=== PATIENT | female | born 1940 | race Caucasian/White ===

== ENCOUNTER 2024-04-30 16:20 | Observation (INO) ==
[2024-04-30] MEDS ORDERED: ROCEPHIN VIAL 1 GRAM 1 G in NS 100 ML IV 100 ML IV SCH (16:45)
[2024-04-30] MEDS: NS 1,000 ML IV 1,000 ML IV SCH (18:52)
[2024-04-30 18:57] LABS: BASOPHILS # (AUTO) 0.1 X10^3/uL (0.0-0.1); BASOPHILS % (AUTO) 0.6 % (0.2-1.0); EOSINOPHILS # (AUTO) 0.1 x10^3/uL (0.0-0.2); HEMATOCRIT 45.9 % (36.0-47.0); HEMOGLOBIN 15.5 g/dL (12.0-16.0); LYMPHOCYTES # (AUTO) 3.1 X10^3/uL (1.3-2.9); LYMPHOCYTES % (AUTO) 30.1 % (21.0-51.0); MEAN CORPUSCULAR HEMOGLOBIN 30.1 pg (27.0-34.0); MEAN CORPUSCULAR HGB CONC 33.8 g/dL (33.0-35.0); MEAN CORPUSCULAR VOLUME 89.1 fL (80.0-100.0); MEAN PLATELET VOLUME 9.8 fL (7.4-11.0); MONOCYTES # (AUTO) 0.8 x10^3/uL (0.3-0.8); NEUTROPHILS # (AUTO) 6.1 x10^3/uL (2.2-4.8); NEUTROPHILS % (AUTO) 60.3 % (42.0-75.0); PLATELET COUNT 265 X10^3/uL (150.0-450.0); RED BLOOD COUNT 5.16 X10^6/uL (3.5-5.4); RED CELL DISTRIBUTION WIDTH 16.3 % (11.6-16.5); WHITE BLOOD COUNT 10.2 X10^3/uL (3.6-10.0)
[2024-04-30 19:13] LABS: ALANINE AMINOTRANSFERASE < 6 Units/L (12-78); ALBUMIN 3.1 g/dL (3.4-5.0); ALKALINE PHOSPHATASE 85 Units/L (46-116); ASPARTATE AMINO TRANSFERASE 14 Units/L (15-37); BLOOD UREA NITROGEN 8 mg/dL (7-18); CALCIUM 8.9 mg/dL (8.5-10.1); CARBON DIOXIDE 24.5 mmol/L (21-32); CHLORIDE 99 mmol/L (98-107); COR CA(FOR HYPOALB) 9.6 mg/dL (8.5-10.1); CREATININE 1.12 mg/dL (0.55-1.02); GLUCOSE 108 mg/dL (65-99); MAGNESIUM 1.3 mg/dL (2.0-2.9); SODIUM 136 mmol/L (136-145); TOTAL PROTEIN 7.4 g/dL (6.4-8.2); eGFR NON BLACK RACES 49 (>60)
[2024-04-30] MEDS ORDERED: CONSULT PHARMACY - POTASSIUM & MAGNESIUM XX SCH (20:00)
[2024-04-30] MEDS: FLAGYL TAB 500 MG PO SCH (20:42)
[2024-04-30] MEDS: MAG-OX TAB PO SCH (20:43)
[2024-04-30] MEDS: K-DUR TAB 20 MEQ PO SCH (20:43)
[2024-04-30] MEDS: SNACK - Diabetic Appropriate PO SCH (21:35)
[2024-04-30] MEDS: ZOFRAN INJ 4 MG VIAL IVP PRN (21:51)
[2024-04-30] MEDS: K-RIDER 10 MEQ/100 ML WATER 10 MEQ/100 ML BAG IV SCH (22:31)
[2024-04-30] MEDS: NS 250 ML IV 250 ML IV ONE (22:32)
[2024-05-01] MEDS: PHENERGAN INJ 25 MG IM PRN (02:32)
[2024-05-01] MEDS: NORCO 5/325 MG TAB PO PRN (03:14)
[2024-05-01 05:26] LABS: BASOPHILS # (AUTO) 0.1 X10^3/uL (0.0-0.1); BASOPHILS % (AUTO) 0.8 % (0.2-1.0); EOSINOPHILS % (AUTO) 0.4 % (0.9-2.9); HEMOGLOBIN 13.4 g/dL (12.0-16.0); LYMPHOCYTES # (AUTO) 2.4 X10^3/uL (1.3-2.9); LYMPHOCYTES % (AUTO) 23.8 % (21.0-51.0); MEAN CORPUSCULAR HEMOGLOBIN 29.9 pg (27.0-34.0); MEAN CORPUSCULAR HGB CONC 33.6 g/dL (33.0-35.0); MEAN CORPUSCULAR VOLUME 88.9 fL (80.0-100.0); MEAN PLATELET VOLUME 9.8 fL (7.4-11.0); MONOCYTES # (AUTO) 0.8 x10^3/uL (0.3-0.8); MONOCYTES % (AUTO) 8.2 % (0.0-13.0); NEUTROPHILS # (AUTO) 6.8 x10^3/uL (2.2-4.8); NEUTROPHILS % (AUTO) 66.8 % (42.0-75.0); PLATELET COUNT 208 X10^3/uL (150.0-450.0); RED CELL DISTRIBUTION WIDTH 16.3 % (11.6-16.5); WHITE BLOOD COUNT 10.2 X10^3/uL (3.6-10.0)
[2024-05-01 05:46] LABS: ALANINE AMINOTRANSFERASE < 6 Units/L (12-78); ALBUMIN 2.5 g/dL (3.4-5.0); ALKALINE PHOSPHATASE 66 Units/L (46-116); ASPARTATE AMINO TRANSFERASE 18 Units/L (15-37); BLOOD UREA NITROGEN 8 mg/dL (7-18); CALCIUM 8.3 mg/dL (8.5-10.1); CARBON DIOXIDE 22.2 mmol/L (21-32); CHLORIDE 104 mmol/L (98-107); COR CA(FOR HYPOALB) 9.5 mg/dL (8.5-10.1); CREATININE 0.95 mg/dL (0.55-1.02); GLUCOSE 105 mg/dL (65-99); MAGNESIUM 1.2 mg/dL (2.0-2.9); POTASSIUM 3.6 mmol/L (3.5-5.1); SODIUM 138 mmol/L (136-145); eGFR NON BLACK RACES 59 (>60)
[2024-05-01] MEDS: MAGNESIUM SULFATE 1 GRAM/100 mL PREMIX 1 G/100 ML BAG IV SCH ×2 (06:26→21:05)
[2024-05-01] MEDS ORDERED: CONSULT PHARMACY - POTASSIUM & MAGNESIUM XX SCH ×2 (07:00→17:00)
--- NOTE | 2024-05-01 08:46 | RAD ---
EXAM:AP chestHISTORY:AMSCOMPARISON:03/16/2024 r.br.br.br infiltrate/pneumonia, CHF or pleural effusion.IMPRESSION:No acute chest findings.THIS IS AN ELECTRONICALLY VERIFIED FINAL [id number]/01/2024 8:42 AM - Electronically signed by Jose Young MD
[2024-05-01] MEDS: ROCEPHIN VIAL 1 GRAM 1 G in NS 100 ML IV 100 ML IV SCH (10:50)
[2024-05-01] MEDS: MAG-OX TAB PO SCH ×2 (10:53→22:42)
[2024-05-01] MEDS: K-DUR TAB 20 MEQ PO SCH ×2 (10:53→17:27)
--- NOTE | 2024-05-01 10:57 | DR.H&P ---
H&P History & Physical for Day of: H&P Date: 04/30/24 Chief Complaint Chief Complaint: CONFUSION, WEAKNESS, "UTI" PER FAMILY, DIARRHEA History of Present Illness History of Present Illness: PT IS 84 WF, DIRECT ADMIT FROM DR STONER OFFICE WITH INCREASED CONFUSION, DEHYDRATION AND WEAKNESS WITH DIARRHEA. PT WAS ON VANCOMYCIN FOR CDIFF, WHICH SHE HAS COMPLETED. PT HAS BEEN STARTED ON PO MACROBID. PT IS UNDER HOME HEALTH AND STATES PT HAS BEEN DEHYDRATED WITH POOR PO INTAKE. PT HAS PMH OF HTN, DM OA, MAITE, GERD, MDD PT ADMITTED FOR TREATMENT AND EVALUATION OF ACUTE ILLNESS. Past Medical History Past Medical History: Diabetes, Dyslipidemia and Hypertension Past Surgical History Surgical History: Other Family History Family Medical History: Diabetes Mellitus, Cancer and Hypertension Medications Home Medications: Home Medications Medication Instructions Recorded Confirmed Type carbidopa 25 mg-levodopa 100 mg 1 tab PO HS 90 days 06/16/22 03/11/24 History tablet promethazine 25 mg tablet 25 mg PO Q6H 06/16/22 03/11/24 History ropinirole 1 mg tablet 1 tab PO HS 30 days 06/16/22 03/11/24 History hydrocodone 10 mg-acetaminophen 1 tab PO TID PRN 02/02/24 03/11/24 History 325 mg tablet levothyroxine 50 mcg tablet 50 mcg PO QDAY 02/02/24 03/11/24 History metoprolol succinate 50 mg 50 mg PO QDAY 02/02/24 03/11/24 History tablet,extended release 24 hr chlorthalidone 25 mg tablet 25 mg PO QDAY 03/11/24 03/11/24 History diltiazem HCl 30 mg tablet 30 mg PO QID 03/11/24 03/11/24 History nitrofurantoin 100 mg PO BID 03/11/24 03/11/24 History monohydrate/macrocrystals 100 mg capsule (Macrobid) semaglutide 7 mg tablet 7 mg PO QDAY 03/11/24 03/11/24 History Allergies Allergies Allergy/AdvReac Type Severity Reaction Status Date / Time cefpodoxime Allergy Severe ANAPHALEXIS Verified 03/09/23 14:05 REACTION levofloxacin [Levaquin] Allergy Unknown Verified 06/16/22 09:31 nitrofurantoin Allergy Unknown Hives; Verified 06/16/22 09:31 Itching; Rash penicillin V Allergy Unknown Verified 06/16/22 09:31 codeine AdvReac Mild RASH Verified 06/16/22 09:31 penicillin G AdvReac Mild RASH Verified 06/16/22 09:31 procaine AdvReac Mild itching Verified 06/16/22 09:31 Sulfa (Sulfonamide AdvReac Mild RASH Verified 06/16/22 09:31 Antibiotics) [SULFA] Labs 05/01/24 04:40 05/01/24 04:40 Review of Systems Constitutional: Weakness Eyes: No Symptoms Reported ENT: No Symptoms Reported Respiratory: Cough and Shortness of Breath Cardiovascular: No Symptoms Reported Gastrointestinal: Nausea and Diarrhea Musculoskeletal: Back Pain and Leg Pain Skin: No Symptoms Reported Neurological: Weakness and Confusion (MILD, RELATED TO ACUTE ILLNESS) Oriented: Person Eyes: Normal Ear: Normal Nose: Normal Throat: Normal Respiratory: RLL Diminished and LLL Diminished Cardiovascular: Normal Auscultation: Bowel Sounds: Normal Palpation: Normal Tenderness: Normal Skin: Decreased Turgur Musculoskeletal: Back:Lumbar and Motor Deficit Psychiatric: Anxiety Mood Description: Calm Affect: Anxious Speech Pattern: Clear and Appropriate Assessment/Plan (1) Acute UTI: Status: Acute Plan: ADMIT, STOOL STUDIES ON ADMISSION IV HYDRATION, IV ABTX UC OBTAINED ON OUTPT BASIS BS CONTROL, PT CONSULT CXR ON ADMISSION (2) Colitis: Status: Acute (3) Atrial fibrillation: Status: Acute (4) Generalized weakness: Status: Acute (5) Hypertension: Status: None (6) Gastroesophageal reflux disease: Status: None (7) Arthritis: Status: None (8) Asthma: Status: None
[2024-05-01] MEDS: VANCOMYCIN HCL 250 MG CAP PO SCH (13:26)
[2024-05-01 15:59] LABS: ALBUMIN 2.4 g/dL (3.4-5.0); CALCIUM 8.1 mg/dL (8.5-10.1); CARBON DIOXIDE 23.6 mmol/L (21-32); COR CA(FOR HYPOALB) 9.4 mg/dL (8.5-10.1); CREATININE 1.11 mg/dL (0.55-1.02); POTASSIUM 3.5 mmol/L (3.5-5.1); TOTAL PROTEIN 5.9 g/dL (6.4-8.2)
[2024-05-01] MEDS: MAG-OX TAB ONE (17:53)
[2024-05-01] MEDS: NS + KCL 20 MEQ/L 1,000 ML IV SCH (21:05)
[2024-05-02 04:55] LABS: BASOPHILS # (AUTO) 0.1 X10^3/uL (0.0-0.1); BASOPHILS % (AUTO) 0.7 % (0.2-1.0); EOSINOPHILS % (AUTO) 0.5 % (0.9-2.9); HEMATOCRIT 39.7 % (36.0-47.0); HEMOGLOBIN 13.2 g/dL (12.0-16.0); LYMPHOCYTES # (AUTO) 2.1 X10^3/uL (1.3-2.9); LYMPHOCYTES % (AUTO) 25.5 % (21.0-51.0); MEAN CORPUSCULAR HEMOGLOBIN 29.9 pg (27.0-34.0); MEAN CORPUSCULAR HGB CONC 33.4 g/dL (33.0-35.0); MEAN CORPUSCULAR VOLUME 89.5 fL (80.0-100.0); MEAN PLATELET VOLUME 9.4 fL (7.4-11.0); MONOCYTES # (AUTO) 0.7 x10^3/uL (0.3-0.8); NEUTROPHILS # (AUTO) 5.3 x10^3/uL (2.2-4.8); NEUTROPHILS % (AUTO) 64.3 % (42.0-75.0); PLATELET COUNT 211 X10^3/uL (150.0-450.0); RED BLOOD COUNT 4.43 X10^6/uL (3.5-5.4); RED CELL DISTRIBUTION WIDTH 16.3 % (11.6-16.5); WHITE BLOOD COUNT 8.3 X10^3/uL (3.6-10.0)
[2024-05-02 05:07] LABS: ALANINE AMINOTRANSFERASE < 6 Units/L (12-78); ALBUMIN 2.4 g/dL (3.4-5.0); ALKALINE PHOSPHATASE 70 Units/L (46-116); ASPARTATE AMINO TRANSFERASE 12 Units/L (15-37); BLOOD UREA NITROGEN 7 mg/dL (7-18); CALCIUM 8.1 mg/dL (8.5-10.1); CARBON DIOXIDE 26.3 mmol/L (21-32); CHLORIDE 106 mmol/L (98-107); COR CA(FOR HYPOALB) 9.4 mg/dL (8.5-10.1); CREATININE 1.11 mg/dL (0.55-1.02); GLUCOSE 110 mg/dL (65-99); SODIUM 139 mmol/L (136-145); TOTAL PROTEIN 5.7 g/dL (6.4-8.2); eGFR NON BLACK RACES 50 (>60)
[2024-05-02] MEDS: TYLENOL 325 MG TAB PO PRN (11:55)
--- NOTE | 2024-05-02 12:44 | NOTE.SOAP ---
Soap Note Note for Day of Date of Exam: 05/02/24 Subjective Data Subjective Data: Feeling better this morning. Still feeling tired and weak. No acute overnight events per patient or staff. Objective Data Objective Data: Elderly, obese female in no acute distress. Heart regular rate and rhythm. Lungs are clear with good respiratory effort and clear speech. Belly is soft, nontender, nondistended. Bowel sounds are appropriate. Mood and affect are appropriate. Assessment Assessment: 1. ESBL E. coli and Staph aureus UTI. Continue IV Rocephin. 2. Infectious diarrhea caused by Salmonella and C. difficile colitis. Continue p.o. Vanco and Flagyl. 3. Essential hypertension. Restart losartan. Consider adding metoprolol back tomorrow.
[2024-05-03 05:18] LABS: BASOPHILS % (AUTO) 0.5 % (0.2-1.0); EOSINOPHILS # (AUTO) 0.1 x10^3/uL (0.0-0.2); EOSINOPHILS % (AUTO) 0.8 % (0.9-2.9); HEMATOCRIT 38.7 % (36.0-47.0); HEMOGLOBIN 13.1 g/dL (12.0-16.0); LYMPHOCYTES # (AUTO) 2.2 X10^3/uL (1.3-2.9); LYMPHOCYTES % (AUTO) 28.8 % (21.0-51.0); MEAN CORPUSCULAR HEMOGLOBIN 30.1 pg (27.0-34.0); MEAN CORPUSCULAR HGB CONC 33.8 g/dL (33.0-35.0); MEAN PLATELET VOLUME 9.6 fL (7.4-11.0); MONOCYTES # (AUTO) 0.6 x10^3/uL (0.3-0.8); MONOCYTES % (AUTO) 8.2 % (0.0-13.0); NEUTROPHILS # (AUTO) 4.7 x10^3/uL (2.2-4.8); NEUTROPHILS % (AUTO) 61.7 % (42.0-75.0); PLATELET COUNT 205 X10^3/uL (150.0-450.0); RED BLOOD COUNT 4.35 X10^6/uL (3.5-5.4); RED CELL DISTRIBUTION WIDTH 16.7 % (11.6-16.5); WHITE BLOOD COUNT 7.6 X10^3/uL (3.6-10.0)
[2024-05-03 05:22] LABS: ALANINE AMINOTRANSFERASE 6 Units/L (12-78); ALBUMIN 2.4 g/dL (3.4-5.0); ALKALINE PHOSPHATASE 67 Units/L (46-116); ASPARTATE AMINO TRANSFERASE 13 Units/L (15-37); BLOOD UREA NITROGEN 4 mg/dL (7-18); CALCIUM 7.9 mg/dL (8.5-10.1); CARBON DIOXIDE 21.4 mmol/L (21-32); CHLORIDE 107 mmol/L (98-107); COR CA(FOR HYPOALB) 9.2 mg/dL (8.5-10.1); CREATININE 0.85 mg/dL (0.55-1.02); GLUCOSE 96 mg/dL (65-99); POTASSIUM 3.6 mmol/L (3.5-5.1); SODIUM 140 mmol/L (136-145); TOTAL PROTEIN 5.7 g/dL (6.4-8.2); eGFR NON BLACK RACES > 60 (>60)
[2024-05-03 06:04] VITALS: BMI 33.2
[2024-05-03] MEDS ORDERED: CONSULT PHARMACY - POTASSIUM & MAGNESIUM XX SCH (07:00)
[2024-05-03] MEDS: NS 1,000 ML IV 1,000 ML with MAGNESIUM SULFATE 50% INJ VIAL 1 G IV SCH (08:03)
[2024-05-03] MEDS: K-DUR TAB 20 MEQ PO SCH (08:03)
[2024-05-03] MEDS: VSL#3 PROBIOTIC CAP 112.5 B PO SCH (13:09)
[2024-05-03] MEDS: ELIQUIS PO SCH (13:10)
[2024-05-03] MEDS: ZITHROMAX TAB 250 MG PO SCH (13:10)
[2024-05-04 06:01] LABS: BASOPHILS # (AUTO) 0.1 X10^3/uL (0.0-0.1); EOSINOPHILS # (AUTO) 0.1 x10^3/uL (0.0-0.2); EOSINOPHILS % (AUTO) 0.9 % (0.9-2.9); HEMATOCRIT 40.1 % (36.0-47.0); HEMOGLOBIN 13.5 g/dL (12.0-16.0); LYMPHOCYTES # (AUTO) 2.5 X10^3/uL (1.3-2.9); LYMPHOCYTES % (AUTO) 28.9 % (21.0-51.0); MEAN CORPUSCULAR HEMOGLOBIN 30.1 pg (27.0-34.0); MEAN CORPUSCULAR HGB CONC 33.7 g/dL (33.0-35.0); MEAN CORPUSCULAR VOLUME 89.5 fL (80.0-100.0); MEAN PLATELET VOLUME 9.5 fL (7.4-11.0); MONOCYTES # (AUTO) 0.6 x10^3/uL (0.3-0.8); MONOCYTES % (AUTO) 7.3 % (0.0-13.0); NEUTROPHILS # (AUTO) 5.3 x10^3/uL (2.2-4.8); NEUTROPHILS % (AUTO) 61.9 % (42.0-75.0); PLATELET COUNT 217 X10^3/uL (150.0-450.0); RED BLOOD COUNT 4.48 X10^6/uL (3.5-5.4); RED CELL DISTRIBUTION WIDTH 16.7 % (11.6-16.5); WHITE BLOOD COUNT 8.5 X10^3/uL (3.6-10.0)
[2024-05-04 06:21] LABS: ALANINE AMINOTRANSFERASE < 6 Units/L (12-78); ALBUMIN 2.5 g/dL (3.4-5.0); ALKALINE PHOSPHATASE 68 Units/L (46-116); ASPARTATE AMINO TRANSFERASE 15 Units/L (15-37); BLOOD UREA NITROGEN 3 mg/dL (7-18); CALCIUM 8.5 mg/dL (8.5-10.1); CARBON DIOXIDE 22.8 mmol/L (21-32); CHLORIDE 105 mmol/L (98-107); COR CA(FOR HYPOALB) 9.7 mg/dL (8.5-10.1); CREATININE 0.88 mg/dL (0.55-1.02); GLUCOSE 104 mg/dL (65-99); MAGNESIUM 1.9 mg/dL (2.0-2.9); POTASSIUM 3.7 mmol/L (3.5-5.1); SODIUM 137 mmol/L (136-145); eGFR NON BLACK RACES > 60 (>60)
[2024-05-04] MEDS ORDERED: CONSULT PHARMACY - POTASSIUM & MAGNESIUM XX SCH (07:00)
[2024-05-04] MEDS: K-DUR TAB 20 MEQ PO SCH (08:25)
[2024-05-04] MEDS: MAG-OX TAB PO SCH (08:25)
[2024-05-04] MEDS: CONSULT PHARMACY - ANTIBIOTIC XX SCH (09:38)
[2024-05-04] MEDS: DECADRON INJ IVP ONE (13:51)
--- NOTE | 2024-05-04 13:51 | PCM.PROG ---
Progress Note Progress Note for Day of Date of Exam: 05/04/24 Subjective Subjective: PT IS 84 WF, DIRECT ADMIT WITH COLITIS DUE TO STOOL + CDIFF, SALMONELLA AND CAMP. PT IS CURRENTLY ON PO ZITHROMAX AND VANCOMYCIN. PT HAS BEEN ON IV ROCEPHIN FOR UTI. PT HAS HAD EXTREME WEAKNESS, PRETTY MUCH BED BOUND AT HOME. PLAN TO CONTINUE IV HYRATION WITH PT AND ENCOURAGE ORAL HYDRATION AND NUTRITION. Past Medical Family Social History Allergies: Allergies cefpodoxime Allergy (Severe, Verified 03/09/23 14:05) ANAPHALEXIS REACTION Throat was swelling closed levofloxacin [Levaquin] Allergy (Unknown, Verified 06/16/22 09:31) Reason: Drug allergy nitrofurantoin Allergy (Unknown, Verified 06/16/22 09:31) Hives; Itching; Rash Reason: Drug allergy penicillin V Allergy (Unknown, Verified 06/16/22 09:31) Reason: Drug allergy codeine Adverse Reaction (Mild, Verified 06/16/22 09:31) RASH penicillin G Adverse Reaction (Mild, Verified 06/16/22 09:31) RASH procaine Adverse Reaction (Mild, Verified 06/16/22 09:31) itching Sulfa (Sulfonamide Antibiotics) [SULFA] Adverse Reaction (Mild, Verified 06/16/22 09:31) RASH Vital Signs and I&O's Vital Signs: Vital Signs Temperature 98.1 F Temperature 98.0 F Pulse Rate [Left] 90 Pulse Rate [Left] 83 Respiratory Rate 19 Respiratory Rate 18 Blood Pressure [Right Arm] 146/67 Blood Pressure [Right Arm] 155/70 O2 Sat by Pulse Oximetry 95 O2 Sat by Pulse Oximetry 95 Intake and Output: Intake & Output 05/02/24 05/03/24 05/04/24 05/05/24 11:59 11:59 11:59 11:59 Intake Total 3432 / 3432 3194 / 3194 2473 / 2473 Output Total 200 / 200 2 / 2 / Balance 3232 / 3232 3192 / 3192 2470 / 2470 Physical Exam Oriented: Person Eyes: Normal Ear: Normal Nose: Normal Throat: Normal Respiratory: Diminished Cardiovascular: Normal Auscultation: Bowel Sounds: Normal Tenderness: Normal Skin: Decreased Turgur Musculoskeletal: Back:Lumbar and Motor Deficit Psychiatric: Anxiety Mood Description: Calm Affect: Anxious Speech Pattern: Clear and Appropriate Laboratory and Diagnostics 12/27/24 05:38 05/04/24 05:38 Labs: 05/01/24 07:48 Stool Stool Culture - Final Salmonella Species 05/01/24 07:48 Stool - Final 04/30/24 18:27 Blood Blood Culture - Preliminary 04/30/24 18:17 Blood Blood Culture - Preliminary Laboratory WBC 8.5 X10^3/uL (3.6-10.0) 05/04/24 05:38 RBC 4.48 X10^6/uL (3.5-5.4) 05/04/24 05:38 Hgb 13.5 g/dL (12.0-16.0) 05/04/24 05:38 Hct 40.1 % (36.0-47.0) 05/04/24 05:38 MCV 89.5 fL (80.0-100.0) 05/04/24 05:38 MCH 30.1 pg (27.0-34.0) 05/04/24 05:38 MCHC 33.7 g/dL (33.0-35.0) 05/04/24 05:38 RDW 16.7 % (11.6-16.5) H 05/04/24 05:38 Plt Count 217 X10^3/uL (150.0-450.0) 05/04/24 05:38 MPV 9.5 fL (7.4-11.0) 05/04/24 05:38 Neut % (Auto) 61.9 % (42.0-75.0) 05/04/24 05:38 Lymph % (Auto) 28.9 % (21.0-51.0) 05/04/24 05:38 [place] % (Auto) 7.3 % (0.0-13.0) 05/04/24 05:38 Eos % (Auto) 0.9 % (0.9-2.9) 05/04/24 05:38 Baso % (Auto) 1.0 % (0.2-1.0) 05/04/24 05:38 Neut # (Auto) 5.3 x10^3/uL (2.2-4.8) H 05/04/24 05:38 Lymph # (Auto) 2.5 X10^3/uL (1.3-2.9) 05/04/24 05:38 [place] # (Auto) 0.6 x10^3/uL (0.3-0.8) 05/04/24 05:38 Eos # (Auto) 0.1 x10^3/uL (0.0-0.2) 05/04/24 05:38 Baso # (Auto) 0.1 X10^3/uL (0.0-0.1) 05/04/24 05:38 Absolute Nucleated RBC 0.1 /100WBC 05/04/24 05:38 Sodium 137 mmol/L (136-145) 05/04/24 05:38 Corrected Sodium TNP 05/04/24 05:38 Potassium 3.7 mmol/L (3.5-5.1) 05/04/24 05:38 Chloride 105 mmol/L (98-107) 05/04/24 05:38 Carbon Dioxide 22.8 mmol/L (21-32) 05/04/24 05:38 BUN 3 mg/dL (7-18) L 05/04/24 05:38 Creatinine 0.88 mg/dL (0.55-1.02) 05/04/24 05:38 Est GFR (MDRD) Af Amer > 60 (>60) 05/04/24 05:38 Est GFR (MDRD) Non-Af > 60 (>60) 05/04/24 05:38 Glucose 104 mg/dL (65-99) H 05/04/24 05:38 POC Glucose (mg/dL) 132 mg/dL (65-99) H 05/04/24 11:03 Lactic Acid 1.0 mmol/L (0.4-2.0) 04/30/24 18:17 Uric Acid 3.8 mg/dL (2.6-6.0) 05/04/24 09:38 Calcium 8.5 mg/dL (8.5-10.1) 05/04/24 05:38 Corrected Calcium 9.7 mg/dL (8.5-10.1) 05/04/24 05:38 Magnesium 1.9 mg/dL (2.0-2.9) L 05/04/24 05:38 Total Bilirubin 0.50 mg/dL (0.2-1.0) 05/04/24 05:38 AST 15 Units/L (15-37) 05/04/24 05:38 ALT < 6 Units/L (12-78) L 05/04/24 05:38 Alkaline Phosphatase 68 Units/L (46-116) 05/04/24 05:38 Total Protein 6.0 g/dL (6.4-8.2) L 05/04/24 05:38 Albumin 2.5 g/dL (3.4-5.0) L 05/04/24 05:38 Globulin 3.5 g/dL (2.5-4.5) 05/04/24 05:38 Albumin/Globulin Ratio 0.7 Ratio (1.1-2.1) L 05/04/24 05:38 Stl C. diff Tox B Gene Positive (NEGATIVE) A 05/01/24 07:48 Stl C. diff 027-NAP1-BI Presumptive negative (NEGATIVE) 05/01/24 07:48 C. difficile Toxin A&B Positive (NEGATIVE) A 05/01/24 07:48 Plan (1) Acute UTI: Status: Acute Plan: STOOL STUDIES ON ADMISSION IV HYDRATION, IV ABTX UC OBTAINED ON OUTPT BASIS BS CONTROL, PT CONSULT CXR ON ADMISSION (2) Salmonella enteritis: Status: Acute (3) Colitis: Status: Acute (4) Atrial fibrillation: Status: Acute (5) Generalized weakness: Status: Acute (6) Hypertension: Status: None (7) Gastroesophageal reflux disease: Status: None (8) Arthritis: Status: None (9) Asthma: Status: None
[2024-05-05 06:58] LABS: BASOPHILS % (AUTO) 0.3 % (0.2-1.0); EOSINOPHILS % (AUTO) 0.1 % (0.9-2.9); HEMATOCRIT 38.9 % (36.0-47.0); HEMOGLOBIN 13.2 g/dL (12.0-16.0); LYMPHOCYTES # (AUTO) 1.3 X10^3/uL (1.3-2.9); LYMPHOCYTES % (AUTO) 21.4 % (21.0-51.0); MEAN CORPUSCULAR HEMOGLOBIN 30.1 pg (27.0-34.0); MEAN CORPUSCULAR HGB CONC 33.8 g/dL (33.0-35.0); MEAN PLATELET VOLUME 9.9 fL (7.4-11.0); MONOCYTES # (AUTO) 0.1 x10^3/uL (0.3-0.8); MONOCYTES % (AUTO) 1.3 % (0.0-13.0); NEUTROPHILS # (AUTO) 4.6 x10^3/uL (2.2-4.8); NEUTROPHILS % (AUTO) 76.9 % (42.0-75.0); PLATELET COUNT 223 X10^3/uL (150.0-450.0); RED BLOOD COUNT 4.38 X10^6/uL (3.5-5.4); RED CELL DISTRIBUTION WIDTH 16.9 % (11.6-16.5)
[2024-05-05 07:26] LABS: ALANINE AMINOTRANSFERASE 7 Units/L (12-78); ALBUMIN 2.6 g/dL (3.4-5.0); ALKALINE PHOSPHATASE 69 Units/L (46-116); ASPARTATE AMINO TRANSFERASE 17 Units/L (15-37); BLOOD UREA NITROGEN 4 mg/dL (7-18); CALCIUM 8.5 mg/dL (8.5-10.1); CARBON DIOXIDE 21.7 mmol/L (21-32); CHLORIDE 102 mmol/L (98-107); COR CA(FOR HYPOALB) 9.6 mg/dL (8.5-10.1); COR NA(FOR HYPERGLY) 138 mmol/L (136-145); CREATININE 0.86 mg/dL (0.55-1.02); GLUCOSE 179 mg/dL (65-99); SODIUM 136 mmol/L (136-145); TOTAL PROTEIN 6.4 g/dL (6.4-8.2); eGFR NON BLACK RACES > 60 (>60)
--- NOTE | 2024-05-05 12:33 | PCM.PROG ---
Progress Note Progress Note for Day of Date of Exam: 05/05/24 Subjective Subjective: Patient seen at bedside, no acute events overnight. She is feeling better today. Denies N/V/D. She did eat breakfast. She has not been ambulating much. She is admitted for colitis with C.diff and Salmonella along with UTI. She is on PO and IV antibiotics. Labs/imaging reviewed: -WBC 6 Hgb 13.2 BUN/Cr 4/0.86 -Urine Cx reviewed -Stool studies: salmonella, C.diff Plan: Continue PO and IV antibiotics. Replace electrolytes prn. Encouraged PO intake. Ambulate prn. PT/OT as tolerated. Continue home medications. Monitor AM labs/imaging. Past Medical Family Social History Allergies: Allergies cefpodoxime Allergy (Severe, Verified 03/09/23 14:05) ANAPHALEXIS REACTION Throat was swelling closed levofloxacin [Levaquin] Allergy (Unknown, Verified 06/16/22 09:31) Reason: Drug allergy nitrofurantoin Allergy (Unknown, Verified 06/16/22 09:31) Hives; Itching; Rash Reason: Drug allergy penicillin V Allergy (Unknown, Verified 06/16/22 09:31) Reason: Drug allergy codeine Adverse Reaction (Mild, Verified 06/16/22 09:31) RASH penicillin G Adverse Reaction (Mild, Verified 06/16/22 09:31) RASH procaine Adverse Reaction (Mild, Verified 06/16/22 09:31) itching Sulfa (Sulfonamide Antibiotics) [SULFA] Adverse Reaction (Mild, Verified 06/16/22 09:31) RASH Vital Signs and I&O's Vital Signs: Vital Signs Temperature 98.2 F Pulse Rate [Right Brachial] 102 Respiratory Rate 20 Blood Pressure [Right Arm] 163/86 O2 Sat by Pulse Oximetry 94 Intake and Output: Intake & Output 05/02/24 05/03/24 05/04/24 05/05/24 23:59 23:59 23:59 23:59 Intake Total 2628 / 2628 2419 / 2419 2608 / 2608 1414 / 1414 Output Total / 06 10 / Balance 2626 / 2626 2417 / 2417 2607 / 2607 1414 / 1414 Physical Exam Oriented: Person Eyes: Normal Ear: Normal Nose: Normal Throat: Normal Respiratory: Diminished Cardiovascular: Normal Auscultation: Bowel Sounds: Normal Palpation: Normal Tenderness: Normal Skin: Decreased Turgur Musculoskeletal: Back:Lumbar and Motor Deficit Psychiatric: Normal Mood Description: Calm Affect: Normal Speech Pattern: Clear and Appropriate Laboratory and Diagnostics 05/05/24 06:10 05/05/24 06:10 Labs: 05/01/24 07:48 Stool Stool Culture - Final Salmonella Species 05/01/24 07:48 Stool - Final 04/30/24 18:27 Blood Blood Culture - Preliminary 04/30/24 18:17 Blood Blood Culture - Preliminary Laboratory WBC 6.0 X10^3/uL (3.6-10.0) 05/05/24 06:10 RBC 4.38 X10^6/uL (3.5-5.4) 05/05/24 06:10 Hgb 13.2 g/dL (12.0-16.0) 05/05/24 06:10 Hct 38.9 % (36.0-47.0) 05/05/24 06:10 MCV 89.0 fL (80.0-100.0) 05/05/24 06:10 MCH 30.1 pg (27.0-34.0) 05/05/24 06:10 MCHC 33.8 g/dL (33.0-35.0) 05/05/24 06:10 RDW 16.9 % (11.6-16.5) H 05/05/24 06:10 Plt Count 223 X10^3/uL (150.0-450.0) 05/05/24 06:10 MPV 9.9 fL (7.4-11.0) 05/05/24 06:10 Neut % (Auto) 76.9 % (42.0-75.0) H 05/05/24 06:10 Lymph % (Auto) 21.4 % (21.0-51.0) 05/05/24 06:10 [place] % (Auto) 1.3 % (0.0-13.0) 05/05/24 06:10 Eos % (Auto) 0.1 % (0.9-2.9) L 05/05/24 06:10 Baso % (Auto) 0.3 % (0.2-1.0) 05/05/24 06:10 Neut # (Auto) 4.6 x10^3/uL (2.2-4.8) 05/05/24 06:10 Lymph # (Auto) 1.3 X10^3/uL (1.3-2.9) 05/05/24 06:10 [place] # (Auto) 0.1 x10^3/uL (0.3-0.8) L 05/05/24 06:10 Eos # (Auto) 0.0 x10^3/uL (0.0-0.2) 05/05/24 06:10 Baso # (Auto) 0.0 X10^3/uL (0.0-0.1) 05/05/24 06:10 Absolute Nucleated RBC 0.2 /100WBC 05/05/24 06:10 Sodium 136 mmol/L (136-145) 05/05/24 06:10 Corrected Sodium 138 mmol/L (136-145) 05/05/24 06:10 Potassium 4.0 mmol/L (3.5-5.1) 05/05/24 06:10 Chloride 102 mmol/L (98-107) 05/05/24 06:10 Carbon Dioxide 21.7 mmol/L (21-32) 05/05/24 06:10 BUN 4 mg/dL (7-18) L 05/05/24 06:10 Creatinine 0.86 mg/dL (0.55-1.02) 05/05/24 06:10 Est GFR (MDRD) Af Amer > 60 (>60) 05/05/24 06:10 Est GFR (MDRD) Non-Af > 60 (>60) 05/05/24 06:10 Glucose 179 mg/dL (65-99) H 05/05/24 06:10 POC Glucose (mg/dL) 174 mg/dL (65-99) H 05/05/24 05:28 Lactic Acid 1.0 mmol/L (0.4-2.0) 04/30/24 18:17 Uric Acid 3.8 mg/dL (2.6-6.0) 05/04/24 09:38 Calcium 8.5 mg/dL (8.5-10.1) 05/05/24 06:10 Corrected Calcium 9.6 mg/dL (8.5-10.1) 05/05/24 06:10 Magnesium 1.9 mg/dL (2.0-2.9) L 05/04/24 05:38 Total Bilirubin 0.50 mg/dL (0.2-1.0) 05/05/24 06:10 AST 17 Units/L (15-37) 05/05/24 06:10 ALT 7 Units/L (12-78) L 05/05/24 06:10 Alkaline Phosphatase 69 Units/L (46-116) 05/05/24 06:10 Total Protein 6.4 g/dL (6.4-8.2) 05/05/24 06:10 Albumin 2.6 g/dL (3.4-5.0) L 05/05/24 06:10 Globulin 3.8 g/dL (2.5-4.5) 05/05/24 06:10 Albumin/Globulin Ratio 0.7 Ratio (1.1-2.1) L 05/05/24 06:10 Stl C. diff Tox B Gene Positive (NEGATIVE) A 05/01/24 07:48 Stl C. diff 027-NAP1-BI Presumptive negative (NEGATIVE) 05/01/24 07:48 C. difficile Toxin A&B Positive (NEGATIVE) A 05/01/24 07:48 Plan (1) Acute UTI: Status: Acute (2) Salmonella enteritis: Status: Acute (3) Colitis: Status: Acute (4) Atrial fibrillation: Status: Chronic Qualifiers: Atrial fibrillation type: unspecified Qualified Code(s): I48.91 - Unspecified atrial fibrillation (5) Generalized weakness: Status: Acute (6) Hypertension: Status: Chronic Qualifiers: Hypertension type: primary hypertension Qualified Code(s): I10 - Essential (primary) hypertension (7) Gastroesophageal reflux disease: Status: Chronic Qualifiers: Esophagitis presence: esophagitis presence not specified Qualified Code(s): K21.9 - Gastro-esophageal reflux disease without esophagitis (8) Arthritis: Status: Chronic (9) Asthma: Status: Chronic Qualifiers: Asthma severity: unspecified severity Asthma persistence: unspecified Asthma complication type: unspecified Qualified Code(s): J45.909 - Unspecified asthma, uncomplicated
[2024-05-05] MEDS: NovoLIN R (or HumuLIN R) SUBCUT PRN (14:04)
[2024-05-05] MEDS: REQUIP PO SCH (21:06)
[2024-05-06 05:49] LABS: ALANINE AMINOTRANSFERASE 7 Units/L (12-78); ALBUMIN 2.4 g/dL (3.4-5.0); ALKALINE PHOSPHATASE 55 Units/L (46-116); ASPARTATE AMINO TRANSFERASE 12 Units/L (15-37); BLOOD UREA NITROGEN 7 mg/dL (7-18); CALCIUM 8.4 mg/dL (8.5-10.1); CHLORIDE 107 mmol/L (98-107); COR CA(FOR HYPOALB) 9.7 mg/dL (8.5-10.1); COR NA(FOR HYPERGLY) 141 mmol/L (136-145); CREATININE 0.86 mg/dL (0.55-1.02); GLUCOSE 121 mg/dL (65-99); POTASSIUM 3.8 mmol/L (3.5-5.1); SODIUM 140 mmol/L (136-145); TOTAL PROTEIN 5.6 g/dL (6.4-8.2); eGFR NON BLACK RACES > 60 (>60)
[2024-05-06 05:51] LABS: BASOPHILS % (AUTO) 0.4 % (0.2-1.0); HEMATOCRIT 35.6 % (36.0-47.0); LYMPHOCYTES # (AUTO) 1.6 X10^3/uL (1.3-2.9); LYMPHOCYTES % (AUTO) 17.6 % (21.0-51.0); MEAN CORPUSCULAR HEMOGLOBIN 30.2 pg (27.0-34.0); MEAN CORPUSCULAR HGB CONC 33.6 g/dL (33.0-35.0); MEAN CORPUSCULAR VOLUME 89.6 fL (80.0-100.0); MEAN PLATELET VOLUME 9.7 fL (7.4-11.0); MONOCYTES # (AUTO) 0.5 x10^3/uL (0.3-0.8); MONOCYTES % (AUTO) 5.3 % (0.0-13.0); NEUTROPHILS # (AUTO) 6.9 x10^3/uL (2.2-4.8); NEUTROPHILS % (AUTO) 76.7 % (42.0-75.0); PLATELET COUNT 221 X10^3/uL (150.0-450.0); RED BLOOD COUNT 3.98 X10^6/uL (3.5-5.4); RED CELL DISTRIBUTION WIDTH 16.7 % (11.6-16.5); WHITE BLOOD COUNT 8.9 X10^3/uL (3.6-10.0)
[2024-05-06] MEDS ORDERED: CONSULT PHARMACY - POTASSIUM & MAGNESIUM XX SCH (07:00)
[2024-05-06] MEDS: K-DUR TAB 20 MEQ PO SCH (08:54)
[2024-05-06] MEDS: MILK OF MAGNESIA PO SCH (08:54)
--- NOTE | 2024-05-06 11:31 | PCM.PROG ---
Progress Note Progress Note for Day of Date of Exam: 05/06/24 Subjective Subjective: Patient seen at bedside, no acute events overnight. She is feeling better today. She is sitting up in the recliner. She has chronic nausea, denies vomiting or diarrhea. She is admitted for colitis with C.diff and Salmonella along with UTI. She is on PO and IV antibiotics. Labs/imaging reviewed: -WBC 8.9 Hgb 12 BUN/Cr 7/0.86 -Urine Cx reviewed -Stool studies: salmonella, C.diff Plan: Continue PO and IV antibiotics. Replace electrolytes prn. Encouraged PO intake. Continue zofran prn. Ambulate prn. PT/OT as tolerated. Continue home medications. Monitor AM labs/imaging. Past Medical Family Social History Allergies: Allergies cefpodoxime Allergy (Severe, Verified 03/09/23 14:05) ANAPHALEXIS REACTION Throat was swelling closed levofloxacin [Levaquin] Allergy (Unknown, Verified 06/16/22 09:31) Reason: Drug allergy nitrofurantoin Allergy (Unknown, Verified 06/16/22 09:31) Hives; Itching; Rash Reason: Drug allergy penicillin V Allergy (Unknown, Verified 06/16/22 09:31) Reason: Drug allergy codeine Adverse Reaction (Mild, Verified 06/16/22 09:31) RASH penicillin G Adverse Reaction (Mild, Verified 06/16/22 09:31) RASH procaine Adverse Reaction (Mild, Verified 06/16/22 09:31) itching Sulfa (Sulfonamide Antibiotics) [SULFA] Adverse Reaction (Mild, Verified 06/16/22 09:31) RASH Vital Signs and I&O's Vital Signs: Vital Signs Temperature 99.9 F Temperature 98.5 F Pulse Rate [Right Brachial] 95 Pulse Rate [Right Brachial] 75 Respiratory Rate 22 Respiratory Rate 20 Blood Pressure [Right Arm] 135/80 Blood Pressure [Right Arm] 175/82 O2 Sat by Pulse Oximetry 96 O2 Sat by Pulse Oximetry 95 Intake and Output: Intake & Output 05/03/24 05/04/24 05/05/24 05/06/24 23:59 23:59 23:59 23:59 Intake Total 2419 / 2419 2608 / 2608 4037 / 4037 352 / 352 Output Total / Balance 2417 / 2417 2607 / 2607 4037 / 4037 352 / 352 Physical Exam Oriented: Person Eyes: Normal Ear: Normal Nose: Normal Throat: Normal Respiratory: Diminished Cardiovascular: Normal Auscultation: Bowel Sounds: Normal Palpation: Normal Tenderness: Normal Skin: Decreased Turgur Musculoskeletal: Back:Lumbar and Motor Deficit Psychiatric: Normal Mood Description: Calm Affect: Normal Speech Pattern: Clear and Appropriate Laboratory and Diagnostics 05/06/24 04:59 05/06/24 04:59 Labs: 04/30/24 18:27 Blood Blood Culture - Final 04/30/24 18:17 Blood Blood Culture - Final 05/01/24 07:48 Stool Stool Culture - Final Salmonella Species 05/01/24 07:48 Stool - Final Laboratory WBC 8.9 X10^3/uL (3.6-10.0) 05/06/24 04:59 RBC 3.98 X10^6/uL (3.5-5.4) 05/06/24 04:59 Hgb 12.0 g/dL (12.0-16.0) 05/06/24 04:59 Hct 35.6 % (36.0-47.0) L 05/06/24 04:59 MCV 89.6 fL (80.0-100.0) 05/06/24 04:59 MCH 30.2 pg (27.0-34.0) 05/06/24 04:59 MCHC 33.6 g/dL (33.0-35.0) 05/06/24 04:59 RDW 16.7 % (11.6-16.5) H 05/06/24 04:59 Plt Count 221 X10^3/uL (150.0-450.0) 05/06/24 04:59 MPV 9.7 fL (7.4-11.0) 05/06/24 04:59 Neut % (Auto) 76.7 % (42.0-75.0) H 05/06/24 04:59 Lymph % (Auto) 17.6 % (21.0-51.0) L 05/06/24 04:59 [place] % (Auto) 5.3 % (0.0-13.0) 05/06/24 04:59 Eos % (Auto) 0.0 % (0.9-2.9) L 05/06/24 04:59 Baso % (Auto) 0.4 % (0.2-1.0) 05/06/24 04:59 Neut # (Auto) 6.9 x10^3/uL (2.2-4.8) H 05/06/24 04:59 Lymph # (Auto) 1.6 X10^3/uL (1.3-2.9) 05/06/24 04:59 [place] # (Auto) 0.5 x10^3/uL (0.3-0.8) 05/06/24 04:59 Eos # (Auto) 0.0 x10^3/uL (0.0-0.2) 05/06/24 04:59 Baso # (Auto) 0.0 X10^3/uL (0.0-0.1) 05/06/24 04:59 Absolute Nucleated RBC 0.0 /100WBC 05/06/24 04:59 Sodium 140 mmol/L (136-145) 05/06/24 04:59 Corrected Sodium 141 mmol/L (136-145) 05/06/24 04:59 Potassium 3.8 mmol/L (3.5-5.1) 05/06/24 04:59 Chloride 107 mmol/L (98-107) 05/06/24 04:59 Carbon Dioxide 25.0 mmol/L (21-32) 05/06/24 04:59 BUN 7 mg/dL (7-18) 05/06/24 04:59 Creatinine 0.86 mg/dL (0.55-1.02) 05/06/24 04:59 Est GFR (MDRD) Af Amer > 60 (>60) 05/06/24 04:59 Est GFR (MDRD) Non-Af > 60 (>60) 05/06/24 04:59 Glucose 121 mg/dL (65-99) H 05/06/24 04:59 POC Glucose (mg/dL) 154 mg/dL (65-99) H 05/06/24 10:57 Lactic Acid 1.0 mmol/L (0.4-2.0) 04/30/24 18:17 Uric Acid 3.8 mg/dL (2.6-6.0) 05/04/24 09:38 Calcium 8.4 mg/dL (8.5-10.1) L 05/06/24 04:59 Corrected Calcium 9.7 mg/dL (8.5-10.1) 05/06/24 04:59 Magnesium 2.1 mg/dL (2.0-2.9) 05/06/24 04:59 Total Bilirubin 0.40 mg/dL (0.2-1.0) 05/06/24 04:59 AST 12 Units/L (15-37) L 05/06/24 04:59 ALT 7 Units/L (12-78) L 05/06/24 04:59 Alkaline Phosphatase 55 Units/L (46-116) 05/06/24 04:59 Total Protein 5.6 g/dL (6.4-8.2) L 05/06/24 04:59 Albumin 2.4 g/dL (3.4-5.0) L 05/06/24 04:59 Globulin 3.2 g/dL (2.5-4.5) 05/06/24 04:59 Albumin/Globulin Ratio 0.8 Ratio (1.1-2.1) L 05/06/24 04:59 Stl C. diff Tox B Gene Positive (NEGATIVE) A 05/01/24 07:48 Stl C. diff 027-NAP1-BI Presumptive negative (NEGATIVE) 05/01/24 07:48 C. difficile Toxin A&B Positive (NEGATIVE) A 05/01/24 07:48 GI Pathogen (PCR) see scanned report 05/03/24 05:00 Infect Dis PCR Plus see scanned report 05/01/24 17:03 Plan (1) Acute UTI: Status: Acute (2) Salmonella enteritis: Status: Acute (3) Colitis: Status: Acute (4) Atrial fibrillation: Status: Chronic Qualifiers: Atrial fibrillation type: unspecified Qualified Code(s): I48.91 - Unspecified atrial fibrillation (5) Generalized weakness: Status: Acute (6) Hypertension: Status: Chronic Qualifiers: Hypertension type: primary hypertension Qualified Code(s): I10 - Essential (primary) hypertension (7) Gastroesophageal reflux disease: Status: Chronic Qualifiers: Esophagitis presence: esophagitis presence not specified Qualified Code(s): K21.9 - Gastro-esophageal reflux disease without esophagitis (8) Arthritis: Status: Chronic (9) Asthma: Status: Chronic Qualifiers: Asthma severity: unspecified severity Asthma persistence: unspecified Asthma complication type: unspecified Qualified Code(s): J45.909 - Unspecified asthma, uncomplicated
[2024-05-06] MEDS ORDERED: MILK OF MAGNESIA PO PRN (19:16)
[2024-05-06] MEDS ORDERED: COLACE CAP 100 MG PO PRN (19:16)
[2024-05-06] MEDS ORDERED: COLACE CAP 100 MG PO SCH (21:00)
[2024-05-07 05:57] LABS: BASOPHILS % (AUTO) 0.4 % (0.2-1.0); EOSINOPHILS % (AUTO) 0.6 % (0.9-2.9); HEMATOCRIT 35.5 % (36.0-47.0); LYMPHOCYTES # (AUTO) 2.5 X10^3/uL (1.3-2.9); LYMPHOCYTES % (AUTO) 35.6 % (21.0-51.0); MEAN CORPUSCULAR HEMOGLOBIN 30.1 pg (27.0-34.0); MEAN CORPUSCULAR HGB CONC 33.9 g/dL (33.0-35.0); MEAN CORPUSCULAR VOLUME 88.9 fL (80.0-100.0); MEAN PLATELET VOLUME 9.3 fL (7.4-11.0); MONOCYTES # (AUTO) 0.7 x10^3/uL (0.3-0.8); MONOCYTES % (AUTO) 9.5 % (0.0-13.0); NEUTROPHILS # (AUTO) 3.8 x10^3/uL (2.2-4.8); NEUTROPHILS % (AUTO) 53.9 % (42.0-75.0); PLATELET COUNT 212 X10^3/uL (150.0-450.0); RED BLOOD COUNT 3.99 X10^6/uL (3.5-5.4); RED CELL DISTRIBUTION WIDTH 16.8 % (11.6-16.5)
[2024-05-07 06:17] LABS: ALANINE AMINOTRANSFERASE 7 Units/L (12-78); ALBUMIN 2.3 g/dL (3.4-5.0); ALKALINE PHOSPHATASE 51 Units/L (46-116); ASPARTATE AMINO TRANSFERASE 13 Units/L (15-37); BLOOD UREA NITROGEN 7 mg/dL (7-18); CALCIUM 7.9 mg/dL (8.5-10.1); CARBON DIOXIDE 26.7 mmol/L (21-32); CHLORIDE 106 mmol/L (98-107); COR CA(FOR HYPOALB) 9.3 mg/dL (8.5-10.1); CREATININE 0.89 mg/dL (0.55-1.02); GLUCOSE 87 mg/dL (65-99); POTASSIUM 3.6 mmol/L (3.5-5.1); SODIUM 139 mmol/L (136-145); TOTAL PROTEIN 5.5 g/dL (6.4-8.2); eGFR NON BLACK RACES > 60 (>60)
[2024-05-07] MEDS ORDERED: CONSULT PHARMACY - POTASSIUM & MAGNESIUM XX SCH (07:00)
[2024-05-07] MEDS: K-DUR TAB 20 MEQ PO SCH (08:11)
[2024-05-07] MEDS ORDERED: LOMOTIL PO PRN (13:01)
[2024-05-08 04:32] VITALS: PULSE 88
[2024-05-08 06:11] LABS: BASOPHILS # (AUTO) 0.1 X10^3/uL (0.0-0.1); BASOPHILS % (AUTO) 0.7 % (0.2-1.0); EOSINOPHILS # (AUTO) 0.1 x10^3/uL (0.0-0.2); EOSINOPHILS % (AUTO) 1.2 % (0.9-2.9); HEMATOCRIT 38.6 % (36.0-47.0); LYMPHOCYTES # (AUTO) 2.4 X10^3/uL (1.3-2.9); LYMPHOCYTES % (AUTO) 32.2 % (21.0-51.0); MEAN CORPUSCULAR HGB CONC 33.6 g/dL (33.0-35.0); MEAN CORPUSCULAR VOLUME 89.1 fL (80.0-100.0); MONOCYTES # (AUTO) 0.7 x10^3/uL (0.3-0.8); MONOCYTES % (AUTO) 9.4 % (0.0-13.0); NEUTROPHILS # (AUTO) 4.2 x10^3/uL (2.2-4.8); NEUTROPHILS % (AUTO) 56.5 % (42.0-75.0); PLATELET COUNT 221 X10^3/uL (150.0-450.0); RED BLOOD COUNT 4.33 X10^6/uL (3.5-5.4); WHITE BLOOD COUNT 7.5 X10^3/uL (3.6-10.0)
[2024-05-08 06:29] LABS: ALANINE AMINOTRANSFERASE 8 Units/L (12-78); ALBUMIN 2.5 g/dL (3.4-5.0); ALKALINE PHOSPHATASE 55 Units/L (46-116); ASPARTATE AMINO TRANSFERASE 13 Units/L (15-37); BLOOD UREA NITROGEN 5 mg/dL (7-18); CALCIUM 8.4 mg/dL (8.5-10.1); CARBON DIOXIDE 26.2 mmol/L (21-32); CHLORIDE 105 mmol/L (98-107); COR CA(FOR HYPOALB) 9.6 mg/dL (8.5-10.1); CREATININE 0.87 mg/dL (0.55-1.02); GLUCOSE 101 mg/dL (65-99); POTASSIUM 3.5 mmol/L (3.5-5.1); SODIUM 139 mmol/L (136-145); TOTAL PROTEIN 5.6 g/dL (6.4-8.2); eGFR NON BLACK RACES > 60 (>60)
[2024-05-08] MEDS ORDERED: CONSULT PHARMACY - POTASSIUM & MAGNESIUM XX SCH (07:00)
[2024-05-08 08:05] VITALS: BP 176/71; RESP 18; TEMP 97.8; O2SAT 97
[2024-05-08] MEDS: K-DUR TAB 20 MEQ PO SCH (10:08)
== END 2024-05-08 12:37 | disposition home health service (06) ==
LOC: MED/SURG
PROVIDERS: ADMIT Internal Medicine; ATTEND Internal Medicine
DX: B95.7 Other staphylococcus as the cause of diseases classified elsewhere; Z16.12 Extended spectrum beta lactamase (ESBL) resistance; A02.0 Salmonella enteritis; F41.8 Other specified anxiety disorders; K52.89 Other specified noninfective gastroenteritis and colitis; E83.42 Hypomagnesemia; E11.65 Type 2 diabetes mellitus with hyperglycemia; M19.90 Unspecified osteoarthritis, unspecified site; R41.0 Disorientation, unspecified; E86.0 Dehydration; R53.1 Weakness; E87.6 Hypokalemia; I10 Essential (primary) hypertension; R26.89 Other abnormalities of gait and mobility; K21.9 Gastro-esophageal reflux disease without esophagitis; I48.91 Unspecified atrial fibrillation; B96.29 Other Escherichia coli [E. coli] as the cause of diseases classified elsewhere; N39.0 Urinary tract infection, site not specified; A04.72 Enterocolitis due to Clostridium difficile, not specified as recurrent; J45.909 Unspecified asthma, uncomplicated; R06.02 Shortness of breath; B96.1 Klebsiella pneumoniae [K. pneumoniae] as the cause of diseases classified elsewhere

== ENCOUNTER 2024-05-14 21:49 | Observation (INO) ==
--- NOTE | 2024-05-14 22:03 | DR.AMS ---
HPI Time Seen Time Seen by Provider: 05/14/24 21:58 Reviewed Nurses Notes Reviewed: Yes PMH PMH Past Medical History: Diabetes, Dyslipidemia and Hypertension Past Surgical History: Yes Surgical History: Other Family History Family Medical History: Diabetes Mellitus, Cancer and Hypertension Social History Do you use any recreational Drugs:: No ROS Review of Systems All Other Systems: Reviewed and Negative (negative except AMS) PE Vitals Vital Signs: Temp Pulse Pulse Resp BP BP Pulse Ox 05/15/24 01:45 78 98 05/15/24 01:33 82 98 05/15/24 01:33 198/84 05/15/24 01:30 216/95 05/15/24 01:30 80 98 05/15/24 01:15 79 98 05/15/24 01:00 82 97 05/15/24 01:00 202/89 05/15/24 00:45 84 95 05/15/24 00:30 83 96 05/15/24 00:30 83 96 05/15/24 00:30 180/81 05/15/24 00:30 180/81 05/15/24 00:30 180/81 05/15/24 00:15 81 97 05/15/24 00:00 77 96 05/15/24 00:00 159/75 05/14/24 23:45 74 95 05/14/24 23:30 77 05/14/24 23:30 152/72 05/14/24 23:31 75 18 152/72 97 05/14/24 23:15 75 95 05/14/24 23:06 81 99 05/14/24 23:06 180/82 05/14/24 23:05 78 100 05/14/24 22:00 77 169/74 95 05/14/24 22:05 98.2 F 80 16 197/90 95 O2 Del Method 05/15/24 01:45 05/15/24 01:33 05/15/24 01:33 05/15/24 01:30 05/15/24 01:30 05/15/24 01:15 05/15/24 01:00 05/15/24 01:00 05/15/24 00:45 05/15/24 00:30 05/15/24 00:30 05/15/24 00:30 05/15/24 00:30 05/15/24 00:30 05/15/24 00:15 05/15/24 00:00 05/15/24 00:00 05/14/24 23:45 05/14/24 23:30 05/14/24 23:30 05/14/24 23:31 Room Air 05/14/24 23:15 05/14/24 23:06 05/14/24 23:06 05/14/24 23:05 05/14/24 22:00 Room Air 05/14/24 22:05 Room Air General Limitations: No Limitations Head Head Exam: Normal Inspection Eyes Eye exam: Normal Appearance ENT ENT Exam: Normal Exam Neck Neck Exam: Normal Inspection Respiratory Respiratory Exam: Normal Lung Sounds Bilat Cardiovascular Cardiovascular Exam: Regular Rate Abdominal Exam Abdominal Exam: Normal Inspection Extremities Extremities Exam: Normal Inspection Back Back Exam: Normal Inspection Neurological Neurological Exam: Other (grossly nonfocal except demented) Skin Skin Exam: Warm and Dry COURSE Reevaluation 1st: Improved Consultation Called: 01:51 Call Returned: 01:51 Consultation Comments: [place]: bring in, treat increase in blood pressure Education/Counseling Education/Counseling: Family ROR Labs Reviewed 05/14/24 22:20 05/14/24 22:20 Laboratory: WBC 8.6 X10^3/uL (3.6-10.0) 05/14/24 22:20 RBC 4.59 X10^6/uL (3.5-5.4) 05/14/24 22:20 Hgb 13.7 g/dL (12.0-16.0) 05/14/24 22:20 Hct 41.0 % (36.0-47.0) 05/14/24 22:20 MCV 89.2 fL (80.0-100.0) 05/14/24 22:20 MCH 29.9 pg (27.0-34.0) 05/14/24 22:20 MCHC 33.5 g/dL (33.0-35.0) 05/14/24 22:20 RDW 16.2 % (11.6-16.5) 05/14/24 22:20 Plt Count 208 X10^3/uL (150.0-450.0) 05/14/24 22:20 MPV 10.3 fL (7.4-11.0) 05/14/24 22:20 Neut % (Auto) 74.3 % (42.0-75.0) 05/14/24 22:20 Lymph % (Auto) 16.8 % (21.0-51.0) L 05/14/24 22:20 [place] % (Auto) 6.1 % (0.0-13.0) 05/14/24 22:20 Eos % (Auto) 0.5 % (0.9-2.9) L 05/14/24 22:20 Baso % (Auto) 2.3 % (0.2-1.0) H 05/14/24 22:20 Neut # (Auto) 6.4 x10^3/uL (2.2-4.8) H 05/14/24 22:20 Lymph # (Auto) 1.4 X10^3/uL (1.3-2.9) 05/14/24 22:20 [place] # (Auto) 0.5 x10^3/uL (0.3-0.8) 05/14/24 22:20 Eos # (Auto) 0.0 x10^3/uL (0.0-0.2) 05/14/24 22:20 Baso # (Auto) 0.2 X10^3/uL (0.0-0.1) H 05/14/24 22:20 Absolute Nucleated RBC 0.2 /100WBC 05/14/24 22:20 Sodium 138 mmol/L (136-145) 05/14/24 22:20 Corrected Sodium 138 mmol/L (136-145) 05/14/24 22:20 Potassium 3.4 mmol/L (3.5-5.1) L 05/14/24 22:20 Chloride 100 mmol/L (98-107) 05/14/24 22:20 Carbon Dioxide 24.9 mmol/L (21-32) 05/14/24 22:20 BUN 6 mg/dL (7-18) L 05/14/24 22:20 Creatinine 1.12 mg/dL (0.55-1.02) H 05/14/24 22:20 Est GFR (MDRD) Af Amer 59 (>60) 05/14/24 22:20 Est GFR (MDRD) Non-Af 49 (>60) L 05/14/24 22:20 Glucose 113 mg/dL (65-99) H 05/14/24 22:20 Calcium 9.3 mg/dL (8.5-10.1) 05/14/24 22:20 Corrected Calcium 10.1 mg/dL (8.5-10.1) 05/14/24 22:20 Total Bilirubin 0.90 mg/dL (0.2-1.0) 05/14/24 22:20 AST 12 Units/L (15-37) L 05/14/24 22:20 ALT 14 Units/L (12-78) 05/14/24 22:20 Alkaline Phosphatase 78 Units/L (46-116) 05/14/24 22:20 Troponin I High Sens 20.8 ng/L (4.0-60.0) 05/14/24 22:20 Total Protein 7.0 g/dL (6.4-8.2) 05/14/24 22:20 Albumin 3.0 g/dL (3.4-5.0) L 05/14/24 22:20 Globulin 4.0 g/dL (2.5-4.5) 05/14/24 22:20 Albumin/Globulin Ratio 0.8 Ratio (1.1-2.1) L 05/14/24 22:20 Specimen Type Catherized urine 05/14/24 22:00 Urine Color Pale yellow (YELLOW) 05/14/24 22:00 Urine Appearance Clear (CLEAR) 05/14/24 22:00 Urine pH 6.0 (5.0 - 8.0) 05/14/24 22:00 Ur Specific [place] 1.020 (1.000-1.030) 05/14/24 22:00 Urine Protein 2+ (NEGATIVE) 05/14/24 22:00 Urine Glucose (UA) Negative (NEGATIVE) 05/14/24 22:00 Urine Ketones 3+ (NEGATIVE) 05/14/24 22:00 Urine Blood 1+ (NEGATIVE) 05/14/24 22:00 Urine Nitrite Negative (NEGATIVE) 05/14/24 22:00 Urine Bilirubin Negative (NEGATIVE) 05/14/24 22:00 Urine Urobilinogen Normal (NORMAL) 05/14/24 22:00 Ur Leukocyte Esterase Negative (NEGATIVE) 05/14/24 22:00 Urine RBC 3-5 /HPF (0-3) A 01/06/25 22:00 Urine WBC 3-5 /HPF (0-5) 05/14/24 22:00 Ur Squamous Epith Cells Few /HPF (NEGATIVE) 05/14/24 22:00 Urine Bacteria Trace /HPF (NEGATIVE) 05/14/24 22:00 Hyaline Casts Rare /LPF (NEGATIVE) 05/14/24 22:00 Urine Mucus Few /HPF (NEGATIVE) 05/14/24 22:00 Ur Culture Indicated? No/not indicated 05/14/24 22:00 Urine Opiates Screen Negative (NEG=<300) 05/14/24 22:00 Urine Methadone Screen Negative (NEG=<300) 05/14/24 22:00 Ur Barbiturates Screen Negative (NEG=<200) 05/14/24 22:00 Ur Phencyclidine Scrn Negative (NEG=<25) 05/14/24 22:00 Ur Amphetamines Screen Negative (NEG=<1000) 05/14/24 22:00 U Benzodiazepines Scrn Negative (NEG=<200) 05/14/24 22:00 Urine Cocaine Screen Negative (NEG=<300) 05/14/24 22:00 U Marijuana (THC) Screen Negative (NEG=<50) 05/14/24 22:00 Opioid Opioid Risk Tool Age (Singh box if 16-45): No History of Preadolescent Sexual Abuse: No Total: 0 Total Score Risk Category: Low Risk Copyright: Dillon PATRICIA predicting aberrant behaviors Discharge Plan Diagnosis Discharge Problem: AMS (altered mental status), Hypertensive emergency Discharge Plan Patient Disposition: 09 ADMITTED INPATIENT Condition: Stable Prescriptions: No Action Trelegy Ellipta 100-62.5-25 mcg blister with device 1 inh inhalation QDAY Qty: 60 3RF amiodarone [Pacerone] 200 mg tablet 200 mg PO BID Qty: 60 0RF metoprolol succinate [Toprol XL] 50 mg tablet extended release 24 hr 50 mg PO QDAY hydrocodone-acetaminophen 10-325 mg tablet 1 tab PO TID PRN levothyroxine [Synthroid] 50 mcg tablet 50 mcg PO QAM Rybelsus 7 mg Tablet 7 mg PO QDAY potassium chloride 10 mEq tablet extended release 20 meq PO DAILY PRN (Reason: Electrolyte Replenishment) Rx Instructions: Take with Lasix esomeprazole magnesium [Nexium] 40 mg capsule,delayed release(DR/EC) 40 mg PO QDAY megestrol 40 mg tablet 40 mg PO QDAY vancomycin 250 mg Capsule 250 mg PO Q6HR 21 Days Qty: 84 0RF Eliquis 2.5 mg Tablet 2.5 mg PO BID furosemide 40 mg Tablet 40 mg PO PRN PRN doxycycline hyclate 100 mg Capsule 100 mg PO BID diclofenac sodium 1 % Gel 1 ea TOPICAL QID Health Concerns: Post Hospitalization: new medications and changes needed to prevent readmission or further decline. Pt educated and given instructions on all concerns. Plan of Treatment: Continue with present treatment and follow up plan. Pt is to keep follow up appointment as instructed and take medications as ordered. Follow ups/Referrals Follow ups/Referrals: NFD,None [Primary Care Provider] - 3 days
--- NOTE | 2024-05-14 22:16 | EKG ---
Test Reason : chest pain Blood Pressure : */* mmHG Vent. Rate : 79 BPM Atrial Rate : 79 BPM P-R Int : 122 ms QRS Dur : 84 ms QT Int : 312 ms P-R-T Axes : 98 35 102 degrees QTc Int : 357 ms Normal sinus rhythm with sinus arrhythmia Nonspecific T wave abnormality Abnormal ECG When compared with ECG of 15-MAR-2024 14:15, premature ventricular complexes are no longer present premature atrial complexes are no longer present QT has shortened Confirmed by Luis Galindo MD ([id number]) on 05/15/2024 7:26:56 AM Referred By: Confirmed By: Luis Galindo MD
[2024-05-14] MEDS: NS 1,000 ML IV 1,000 ML IV SCH (22:21)
[2024-05-14 22:29] LABS: BILIRUBIN,URINE NEGATIVE (NEGATIVE); BLOOD/HEMOGLOBIN,URINE 1+ (NEGATIVE); GLUCOSE, URINE NEGATIVE (NEGATIVE); KETONES,URINE 3+ (NEGATIVE); LEUKOCYTE ESTERASE ,URINE NEGATIVE (NEGATIVE); NITRITES,URINE NEGATIVE (NEGATIVE); PROTEIN,URINE 2+ (NEGATIVE); UROBILINOGEN,URINE NORMAL (NORMAL)
[2024-05-14 22:37] LABS: APPEARANCE,URINE CLEAR (CLEAR); BACTERIA,URINE TRACE /HPF (NEGATIVE); COLOR,URINE PALE YELLOW (YELLOW); HYALINE CASTS, URINE RARE /LPF (NEGATIVE); SQUAMOUS EPITHELIAL CELL,UR FEW /HPF (NEGATIVE)
[2024-05-14 22:53] LABS: MEAN PLATELET VOLUME 10.3 fL (7.4-11.0); WHITE BLOOD COUNT 8.6 X10^3/uL (3.6-10.0)
[2024-05-14 23:04] LABS: BASOPHILS # (AUTO) 0.2 X10^3/uL (0.0-0.1); BASOPHILS % (AUTO) 2.3 % (0.2-1.0); CALCIUM 9.3 mg/dL (8.5-10.1); CARBON DIOXIDE 24.9 mmol/L (21-32); COR CA(FOR HYPOALB) 10.1 mg/dL (8.5-10.1); CREATININE 1.12 mg/dL (0.55-1.02); EOSINOPHILS % (AUTO) 0.5 % (0.9-2.9); HEMOGLOBIN 13.7 g/dL (12.0-16.0); LYMPHOCYTES # (AUTO) 1.4 X10^3/uL (1.3-2.9); LYMPHOCYTES % (AUTO) 16.8 % (21.0-51.0); MEAN CORPUSCULAR HEMOGLOBIN 29.9 pg (27.0-34.0); MEAN CORPUSCULAR HGB CONC 33.5 g/dL (33.0-35.0); MEAN CORPUSCULAR VOLUME 89.2 fL (80.0-100.0); MONOCYTES # (AUTO) 0.5 x10^3/uL (0.3-0.8); MONOCYTES % (AUTO) 6.1 % (0.0-13.0); NEUTROPHILS # (AUTO) 6.4 x10^3/uL (2.2-4.8); NEUTROPHILS % (AUTO) 74.3 % (42.0-75.0); PLATELET COUNT 208 X10^3/uL (150.0-450.0); POTASSIUM 3.4 mmol/L (3.5-5.1); RED BLOOD COUNT 4.59 X10^6/uL (3.5-5.4); RED CELL DISTRIBUTION WIDTH 16.2 % (11.6-16.5)
--- NOTE | 2024-05-14 23:16 | CT ---
EXAM: HEAD CT WITHOUT INTRAVENOUS CONTRASTHISTORY: Altered mental status.TECHNIQUE: Spiral axial CT images are obtained through the brain without the administration of intravenous contrast. Additional sagittal and coronal reformatted images are reconstructed.COMPARISON: None available.FINDINGS:There are parenchymal lucencies within the white matter tracks of the centrum semiovale, consistent with chronic sequela of atherosclerotic microvascular ischemic disease. Severe atherosclerosis of the intracranial ICAs and vertebral arteries is seen. Consider follow-up MRA as clinically warranted.There is diffuse cerebral cortical atrophy. Nonspecific pineal gland calcification is seen. The centrum semiovale, basal ganglia, cerebellum, and brainstem are otherwise grossly unremarkable for a noncontrast CT scan. There is no acute intracranial hemorrhage, gross acute infarction, mass lesion, midline shift, or hydrocephalus seen. No extra-axial mass or abnormal fluid collection noted.The calvarium is intact. The partially imaged paranasal sinuses, middle ear cavities and mastoid air cells are clear.IMPRESSION:1. Extensive chronic microvascular ischemic disease (rule out Binswanger's dementia), but no discernible acute infarction seen. Consider followup MRI with diffusion-weighted imaging to rule out occult acute infarction if clinically warranted.2. Severe atherosclerosis of the intracranial ICAs and vertebral arteries is seen. Consider follow-up MRA as clinically warranted.3. No skull fracture, intracranial hemorrhage, mass lesion, midline shift, or hydrocephalus seen.THIS IS AN ELECTRONICALLY VERIFIED FINAL REPORT05/14/2024 11:13 PM - Electronically signed by Latia Eubanks MD
[2024-05-15] MEDS: CATAPRES TAB 0.1 MG PO ONE (00:47)
[2024-05-15] MEDS: CATAPRES TAB 0.2 MG PO ONE (01:48)
[2024-05-15] MEDS ORDERED: LASIX PO PRN ×2 (02:01→03:31)
[2024-05-15] MEDS ORDERED: CONSULT PHARMACY - POTASSIUM & MAGNESIUM XX SCH (03:14)
[2024-05-15] MEDS: VANCOMYCIN HCL 250 MG CAP PO SCH (03:37)
[2024-05-15 03:53] VITALS: BMI 31.1
[2024-05-15] MEDS: K-DUR TAB 20 MEQ PO SCH (04:21)
--- NOTE | 2024-05-15 06:10 | RAD ---
EXAM:Portable chestHISTORY:Altered mental statusCOMPARISON:04/30/2024FINDINGS:Hear t is mildly enlarged. No congestive heart failure is noted. Aorta is calcified and mildly ectatic. Lung greene are clear. No pleural effusion or pneumothorax identified. Bony thorax is unremarkable.IMPRESSION:Mild cardiomegaly without congestive heart failureNo acute infiltratesTHIS IS AN ELECTRONICALLY VERIFIED FINAL REPORT05/15/2024 6:07 AM - Electronically signed by Wyatt Pruitt MD
[2024-05-15 06:32] LABS: BASOPHILS # (AUTO) 0.1 X10^3/uL (0.0-0.1); BASOPHILS % (AUTO) 1.2 % (0.2-1.0); EOSINOPHILS % (AUTO) 0.1 % (0.9-2.9); HEMATOCRIT 39.1 % (36.0-47.0); HEMOGLOBIN 13.1 g/dL (12.0-16.0); LYMPHOCYTES # (AUTO) 1.5 X10^3/uL (1.3-2.9); LYMPHOCYTES % (AUTO) 15.2 % (21.0-51.0); MEAN CORPUSCULAR HEMOGLOBIN 29.8 pg (27.0-34.0); MEAN CORPUSCULAR HGB CONC 33.5 g/dL (33.0-35.0); MEAN CORPUSCULAR VOLUME 89.1 fL (80.0-100.0); MEAN PLATELET VOLUME 10.6 fL (7.4-11.0); MONOCYTES # (AUTO) 0.6 x10^3/uL (0.3-0.8); NEUTROPHILS # (AUTO) 7.4 x10^3/uL (2.2-4.8); NEUTROPHILS % (AUTO) 77.5 % (42.0-75.0); PLATELET COUNT 194 X10^3/uL (150.0-450.0); RED BLOOD COUNT 4.39 X10^6/uL (3.5-5.4); RED CELL DISTRIBUTION WIDTH 16.4 % (11.6-16.5); WHITE BLOOD COUNT 9.6 X10^3/uL (3.6-10.0)
[2024-05-15 06:42] LABS: ALANINE AMINOTRANSFERASE 9 Units/L (12-78); ALBUMIN 2.7 g/dL (3.4-5.0); ALKALINE PHOSPHATASE 68 Units/L (46-116); ASPARTATE AMINO TRANSFERASE 12 Units/L (15-37); BLOOD UREA NITROGEN 6 mg/dL (7-18); CARBON DIOXIDE 23.3 mmol/L (21-32); CHLORIDE 101 mmol/L (98-107); COR NA(FOR HYPERGLY) 137 mmol/L (136-145); CREATININE 0.86 mg/dL (0.55-1.02); GLUCOSE 119 mg/dL (65-99); POTASSIUM 3.6 mmol/L (3.5-5.1); SODIUM 137 mmol/L (136-145); TOTAL PROTEIN 6.3 g/dL (6.4-8.2); eGFR NON BLACK RACES > 60 (>60)
[2024-05-15] MEDS: CATAPRES TAB 0.2 MG ONE (06:47)
[2024-05-15] MEDS ORDERED: PATIENT'S HOME MEDICATION (Apixaban [Eliquis] 2.5 mg Tablet) PO SCH (09:00)
[2024-05-15] MEDS ORDERED: PATIENT'S HOME MEDICATION (Fluticasone-Umeclidin-Vilanter [Trelegy Ellipta] 100-62.5-25 mc IN SCH (09:00)
[2024-05-15] MEDS ORDERED: VIBRAMYCIN PO SCH (09:00)
[2024-05-15] MEDS: CATAPRES TAB 0.1 MG PO SCH (09:03)
[2024-05-15] MEDS ORDERED: PULMICORT NEB TX 0.5 MG NEB SCH (09:15)
[2024-05-15] MEDS ORDERED: DUONEB 0.5 MG/3 MG (3 mL) NEB SCH (09:30)
[2024-05-15] MEDS: ROCEPHIN VIAL 1 GRAM 1 G in NS 100 ML IV 100 ML IV SCH (09:50)
[2024-05-15] MEDS: ELIQUIS PO SCH (09:51)
[2024-05-15] MEDS: NexIUM PO SCH (09:51)
[2024-05-15] MEDS: SYNTHROID 50 mcg TAB PO SCH (09:51)
[2024-05-15] MEDS: TOPROL XL PO SCH (09:51)
[2024-05-15] MEDS: KLOR-CON 10 MEQ TAB PO PRN (09:51)
[2024-05-15] MEDS: CORDARONE TAB 200 MG PO SCH (09:51)
[2024-05-15] MEDS: MEGACE PO SCH (09:52)
[2024-05-15] MEDS: SEMAGLUTIDE 7 MG PO SCH (09:52)
--- NOTE | 2024-05-15 14:19 | MRI ---
EXAMINATION:BRAIN W/O CONHISTORY:AMS /CVA ; .COMPARISON STUDY:Noncontrast CT of the brain 05/14/2024TECHNIQUE:Multi planar noncontrast MR images of the brain using multiple imaging sequences.FINDINGS:No evidence of acute CVA or acute demyelination. No abnormal intra-axial or extra-axial mass, mass effect, or midline shift. FLAIR and T2 weighted images demonstrate multiple foci of abnormal signal scattered within the deep white matter adjacent to the lateral ventricles and centrum semiovale regions bilaterally without associated mass effect. Consider chronic ischemic white matter changes from small vessel disease or other cause of gliosis. Ventricles normal size and shape. Normal flow void within the cavernous portions of the internal carotid arteries bilaterally and basilar artery. Mild diffuse brain parenchyma atrophy.The sella and suprasellar regions, orbital globes and retro-orbital structures, paranasal sinuses, cervicomedullary junction appear intact.IMPRESSION:No evidence of acute CVA or acute demyelination.Chronic appearing deep white matter changes within both cerebral hemispheres.THIS IS AN ELECTRONICALLY VERIFIED FINAL REPORT05/15/2024 2:16 PM - Electronically signed by Shannon Boucher MD
--- NOTE | 2024-05-15 17:40 | DR.H&P ---
H&P History & Physical for Day of: H&P Date: 05/15/24 Chief Complaint Chief Complaint: ams, slurred speech, confusion History of Present Illness History of Present Illness: PT IS 84 WF, ER ADMISSION AFTER DAUGHTER CALLED EMS WITH POSSIBLE STROKE. PT FAMILY REPORTS SHE HAD SUDDEN ONSET OF CONFUSION AND SLURRED SPEECH. PT HAS RECENTLY BEEN ON TREATMENT OF DIARRHEA ILLNESS, CDIFF& SALMONELLA, WITH IMPROVING SYMPTOMS. 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 PT HAS PMH OF AFIB, HTN, DM, OA, MAITE, AND COPD. PT ADMITTED FOR TREATMENT AND EVALUATION OF ACUTE ILLNESS. Past Medical History Past Medical History: Arthritis, Asthma, Diabetes, Dyslipidemia, GERD, Hypertension and Hypothyroidism Past Surgical History Surgical History: Other Family History Family Medical History: Diabetes Mellitus and Hypertension Social History Does patient currently use any type of tobacco product: No Have you used tobacco products in the last 12 months: No Type of Tobacco Use: None Does any household member use tobacco: No Alcohol Use: None Drug Use: None Medications Home Medications: Home Medications Medication Instructions Recorded Confirmed Type hydrocodone 10 mg-acetaminophen 1 tab PO TID PRN 02/02/24 05/14/24 History 325 mg tablet levothyroxine 50 mcg tablet 50 mcg PO QAM 02/02/24 05/14/24 History (Synthroid) metoprolol succinate 50 mg 50 mg PO QDAY 02/02/24 05/14/24 History tablet,extended release 24 hr (Toprol XL) semaglutide 7 mg tablet (Rybelsus) 7 mg PO QDAY 03/11/24 05/14/24 History esomeprazole magnesium 40 mg 40 mg PO QDAY 04/30/24 05/14/24 History capsule,delayed release (Nexium) megestrol 40 mg tablet 40 mg PO QDAY 04/30/24 05/14/24 History potassium chloride 10 mEq 20 meq PO DAILY PRN Electrolyte 04/30/24 05/14/24 History tablet,extended release Replenishment apixaban 2.5 mg tablet (Eliquis) 2.5 mg PO BID 05/14/24 05/14/24 History diclofenac sodium 1 % topical gel 1 ea topical QID 05/14/24 05/14/24 History doxycycline hyclate 100 mg capsule 100 mg PO BID 05/14/24 05/14/24 History furosemide 40 mg tablet 40 mg PO PRN PRN 05/14/24 05/14/24 History Allergies Allergies Allergy/AdvReac Type Severity Reaction Status Date / Time cefpodoxime Allergy Severe ANAPHALEXIS Verified 03/09/23 14:05 REACTION levofloxacin [Levaquin] Allergy Unknown Verified 06/16/22 09:31 nitrofurantoin Allergy Unknown Hives; Verified 06/16/22 09:31 Itching; Rash penicillin V Allergy Unknown Verified 06/16/22 09:31 lidocaine Allergy Verified 05/14/24 22:23 codeine AdvReac Mild RASH Verified 06/16/22 09:31 penicillin G AdvReac Mild RASH Verified 06/16/22 09:31 procaine AdvReac Mild itching Verified 06/16/22 09:31 Sulfa (Sulfonamide AdvReac Mild RASH Verified 06/16/22 09:31 Antibiotics) [SULFA] Labs 05/15/24 06:04 05/15/24 06:04 Labs: Laboratory WBC 9.6 X10^3/uL (3.6-10.0) 05/15/24 06:04 RBC 4.39 X10^6/uL (3.5-5.4) 05/15/24 06:04 Hgb 13.1 g/dL (12.0-16.0) 05/15/24 06:04 Hct 39.1 % (36.0-47.0) 05/15/24 06:04 MCV 89.1 fL (80.0-100.0) 05/15/24 06:04 MCH 29.8 pg (27.0-34.0) 05/15/24 06:04 MCHC 33.5 g/dL (33.0-35.0) 05/15/24 06:04 RDW 16.4 % (11.6-16.5) 05/15/24 06:04 Plt Count 194 X10^3/uL (150.0-450.0) 05/15/24 06:04 MPV 10.6 fL (7.4-11.0) 05/15/24 06:04 Neut % (Auto) 77.5 % (42.0-75.0) H 05/15/24 06:04 Lymph % (Auto) 15.2 % (21.0-51.0) L 05/15/24 06:04 [place] % (Auto) 6.0 % (0.0-13.0) 05/15/24 06:04 Eos % (Auto) 0.1 % (0.9-2.9) L 05/15/24 06:04 Baso % (Auto) 1.2 % (0.2-1.0) H 05/15/24 06:04 Neut # (Auto) 7.4 x10^3/uL (2.2-4.8) H 05/15/24 06:04 Lymph # (Auto) 1.5 X10^3/uL (1.3-2.9) 05/15/24 06:04 [place] # (Auto) 0.6 x10^3/uL (0.3-0.8) 05/15/24 06:04 Eos # (Auto) 0.0 x10^3/uL (0.0-0.2) 05/15/24 06:04 Baso # (Auto) 0.1 X10^3/uL (0.0-0.1) 05/15/24 06:04 Absolute Nucleated RBC 0.0 /100WBC 05/15/24 06:04 Sodium 137 mmol/L (136-145) 05/15/24 06:04 Corrected Sodium 137 mmol/L (136-145) 05/15/24 06:04 Potassium 3.6 mmol/L (3.5-5.1) 05/15/24 06:04 Chloride 101 mmol/L (98-107) 05/15/24 06:04 Carbon Dioxide 23.3 mmol/L (21-32) 05/15/24 06:04 BUN 6 mg/dL (7-18) L 05/15/24 06:04 Creatinine 0.86 mg/dL (0.55-1.02) 05/15/24 06:04 Est GFR (MDRD) Af Amer > 60 (>60) 05/15/24 06:04 Est GFR (MDRD) Non-Af > 60 (>60) 05/15/24 06:04 Glucose 119 mg/dL (65-99) H 05/15/24 06:04 Calcium 9.0 mg/dL (8.5-10.1) 05/15/24 06:04 Corrected Calcium 10.0 mg/dL (8.5-10.1) 05/15/24 06:04 Total Bilirubin 0.90 mg/dL (0.2-1.0) 05/15/24 06:04 AST 12 Units/L (15-37) L 05/15/24 06:04 ALT 9 Units/L (12-78) L 05/15/24 06:04 Alkaline Phosphatase 68 Units/L (46-116) 05/15/24 06:04 Troponin I High Sens 20.8 ng/L (4.0-60.0) 05/14/24 22:20 Total Protein 6.3 g/dL (6.4-8.2) L 05/15/24 06:04 Albumin 2.7 g/dL (3.4-5.0) L 05/15/24 06:04 Globulin 3.6 g/dL (2.5-4.5) 05/15/24 06:04 Albumin/Globulin Ratio 0.8 Ratio (1.1-2.1) L 05/15/24 06:04 Specimen Type Catherized urine 05/14/24 22:00 Urine Color Pale yellow (YELLOW) 05/14/24 22:00 Urine Appearance Clear (CLEAR) 05/14/24 22:00 Urine pH 6.0 (5.0 - 8.0) 05/14/24 22:00 Ur Specific [place] 1.020 (1.000-1.030) 05/14/24 22:00 Urine Protein 2+ (NEGATIVE) 05/14/24 22:00 Urine Glucose (UA) Negative (NEGATIVE) 05/14/24 22:00 Urine Ketones 3+ (NEGATIVE) 05/14/24 22:00 Urine Blood 1+ (NEGATIVE) 05/14/24 22:00 Urine Nitrite Negative (NEGATIVE) 05/14/24 22:00 Urine Bilirubin Negative (NEGATIVE) 05/14/24 22:00 Urine Urobilinogen Normal (NORMAL) 05/14/24 22:00 Ur Leukocyte Esterase Negative (NEGATIVE) 05/14/24 22:00 Urine RBC 3-5 /HPF (0-3) A 05/14/24 22:00 Urine WBC 3-5 /HPF (0-5) 05/14/24 22:00 Ur Squamous Epith Cells Few /HPF (NEGATIVE) 05/14/24 22:00 Urine Bacteria Trace /HPF (NEGATIVE) 05/14/24 22:00 Hyaline Casts Rare /LPF (NEGATIVE) 05/14/24 22:00 Urine Mucus Few /HPF (NEGATIVE) 05/14/24 22:00 Ur Culture Indicated? No/not indicated 05/14/24 22:00 Urine Opiates Screen Negative (NEG=<300) 05/14/24 22:00 Urine Methadone Screen Negative (NEG=<300) 05/14/24 22:00 Ur Barbiturates Screen Negative (NEG=<200) 05/14/24 22:00 Ur Phencyclidine Scrn Negative (NEG=<25) 05/14/24 22:00 Ur Amphetamines Screen Negative (NEG=<1000) 05/14/24 22:00 U Benzodiazepines Scrn Negative (NEG=<200) 05/14/24 22:00 Urine Cocaine Screen Negative (NEG=<300) 05/14/24 22:00 U Marijuana (THC) Screen Negative (NEG=<50) 05/14/24 22:00 Review of Systems Constitutional: Weakness Eyes: No Symptoms Reported ENT: No Symptoms Reported Respiratory: Shortness of Breath Cardiovascular: No Symptoms Reported Gastrointestinal: Diarrhea Genitourinary: No Symptoms Reported Musculoskeletal: Back Pain and Leg Pain Skin: Rash Neurological: Weakness, Change in Speech and Confusion Physical Exam Vital Signs: Vital Signs Temperature 98.3 F Temperature 98.3 F Pulse Rate 65 Pulse Rate 72 Pulse Rate 70 Pulse Rate 75 Pulse Rate 78 Respiratory Rate 18 Respiratory Rate 17 Respiratory Rate 22 Respiratory Rate 12 Respiratory Rate 19 Blood Pressure 130/60 Blood Pressure 110/58 Blood Pressure 110/58 Blood Pressure 102/54 Blood Pressure 104/52 O2 Sat by Pulse Oximetry 96 O2 Sat by Pulse Oximetry 94 O2 Sat by Pulse Oximetry 95 O2 Sat by Pulse Oximetry 95 O2 Sat by Pulse Oximetry 96 Oriented: Person Eyes: Normal Ear: Normal Nose: Normal Throat: Dry Respiratory: RLL Diminished and LLL Diminished Cardiovascular: negative Tachycardia or Bradycardia Auscultation: Bowel Sounds: Normal Palpation: Normal Tenderness: Normal Skin: Decreased Turgur Musculoskeletal: Back:Thoracic, Back:Lumbar and Motor Deficit Psychiatric: Depression Mood Description: Depressed Speech Pattern: Clear, Appropriate and Delayed Assessment/Plan (1) AMS (altered mental status): Status: Acute Plan: CT HEAD DONE ON ER ADMISSION, BP CONTROL CARDIAC MONITORING, MRI BRAIN CE, VERIFY HOME MEDICATIONS STRICT I&OS, PRN SUPPLEMENTAL O2 RESUME ATBX THERAPY FOR SALMONELLA AND CDIFF (2) Hypertensive emergency: Status: Acute (3) Atrial fibrillation: Qualifiers: Atrial fibrillation type: unspecified Qualified Code(s): I48.91 - Unspecified atrial fibrillation Status: Chronic (4) Acute UTI: Status: Acute (5) Type 2 diabetes mellitus with obesity: Status: None
[2024-05-16 05:03] LABS: RED BLOOD COUNT 3.88 X10^6/uL (3.5-5.4)
[2024-05-16 05:11] LABS: ALANINE AMINOTRANSFERASE 10 Units/L (12-78); ALBUMIN 2.5 g/dL (3.4-5.0); ALKALINE PHOSPHATASE 59 Units/L (46-116); ASPARTATE AMINO TRANSFERASE 11 Units/L (15-37); BLOOD UREA NITROGEN 6 mg/dL (7-18); CALCIUM 8.4 mg/dL (8.5-10.1); CARBON DIOXIDE 23.2 mmol/L (21-32); CHLORIDE 102 mmol/L (98-107); COR CA(FOR HYPOALB) 9.6 mg/dL (8.5-10.1); COR NA(FOR HYPERGLY) 136 mmol/L (136-145); CREATININE 0.97 mg/dL (0.55-1.02); GLUCOSE 113 mg/dL (65-99); MAGNESIUM 1.3 mg/dL (2.0-2.9); POTASSIUM 3.7 mmol/L (3.5-5.1); SODIUM 136 mmol/L (136-145); TOTAL PROTEIN 5.8 g/dL (6.4-8.2); eGFR NON BLACK RACES 58 (>60)
[2024-05-16 05:14] LABS: BASOPHILS # (AUTO) 0.1 X10^3/uL (0.0-0.1); BASOPHILS % (AUTO) 0.8 % (0.2-1.0); EOSINOPHILS % (AUTO) 0.4 % (0.9-2.9); HEMATOCRIT 34.7 % (36.0-47.0); HEMOGLOBIN 11.5 g/dL (12.0-16.0); MEAN CORPUSCULAR HEMOGLOBIN 29.7 pg (27.0-34.0); MEAN CORPUSCULAR HGB CONC 33.3 g/dL (33.0-35.0); MEAN CORPUSCULAR VOLUME 89.3 fL (80.0-100.0); MEAN PLATELET VOLUME 10.6 fL (7.4-11.0); MONOCYTES # (AUTO) 0.6 x10^3/uL (0.3-0.8); MONOCYTES % (AUTO) 7.2 % (0.0-13.0); NEUTROPHILS # (AUTO) 5.3 x10^3/uL (2.2-4.8); NEUTROPHILS % (AUTO) 66.6 % (42.0-75.0); PLATELET COUNT 191 X10^3/uL (150.0-450.0); RED CELL DISTRIBUTION WIDTH 16.4 % (11.6-16.5)
[2024-05-16] MEDS ORDERED: CONSULT PHARMACY - POTASSIUM & MAGNESIUM XX SCH (06:00)
[2024-05-16] MEDS ORDERED: PATIENT'S HOME MEDICATION (Fluticasone-Umeclidin-Vilanter [Trelegy Ellipta] 100-62.5-25 mc IN SCH (09:00)
[2024-05-16] MEDS: K-DUR TAB 20 MEQ PO SCH (09:50)
[2024-05-17 06:27] LABS: BASOPHILS % (AUTO) 0.4 % (0.2-1.0); EOSINOPHILS # (AUTO) 0.1 x10^3/uL (0.0-0.2); EOSINOPHILS % (AUTO) 1.3 % (0.9-2.9); HEMATOCRIT 32.5 % (36.0-47.0); HEMOGLOBIN 11.1 g/dL (12.0-16.0); LYMPHOCYTES # (AUTO) 2.1 X10^3/uL (1.3-2.9); LYMPHOCYTES % (AUTO) 33.5 % (21.0-51.0); MEAN CORPUSCULAR HEMOGLOBIN 30.1 pg (27.0-34.0); MEAN CORPUSCULAR HGB CONC 34.1 g/dL (33.0-35.0); MEAN CORPUSCULAR VOLUME 88.4 fL (80.0-100.0); MEAN PLATELET VOLUME 10.2 fL (7.4-11.0); MONOCYTES # (AUTO) 0.6 x10^3/uL (0.3-0.8); NEUTROPHILS # (AUTO) 3.5 x10^3/uL (2.2-4.8); NEUTROPHILS % (AUTO) 54.8 % (42.0-75.0); PLATELET COUNT 166 X10^3/uL (150.0-450.0); RED BLOOD COUNT 3.68 X10^6/uL (3.5-5.4); RED CELL DISTRIBUTION WIDTH 16.3 % (11.6-16.5); WHITE BLOOD COUNT 6.4 X10^3/uL (3.6-10.0)
[2024-05-17 06:39] LABS: ALANINE AMINOTRANSFERASE 11 Units/L (12-78); ALBUMIN 2.4 g/dL (3.4-5.0); ALKALINE PHOSPHATASE 53 Units/L (46-116); ASPARTATE AMINO TRANSFERASE 10 Units/L (15-37); BLOOD UREA NITROGEN 6 mg/dL (7-18); CALCIUM 8.6 mg/dL (8.5-10.1); CARBON DIOXIDE 21.3 mmol/L (21-32); CHLORIDE 105 mmol/L (98-107); COR CA(FOR HYPOALB) 9.9 mg/dL (8.5-10.1); CREATININE 0.87 mg/dL (0.55-1.02); GLUCOSE 98 mg/dL (65-99); MAGNESIUM 1.3 mg/dL (2.0-2.9); POTASSIUM 3.6 mmol/L (3.5-5.1); SODIUM 137 mmol/L (136-145); TOTAL PROTEIN 5.4 g/dL (6.4-8.2); eGFR NON BLACK RACES > 60 (>60)
[2024-05-17] MEDS ORDERED: CONSULT PHARMACY - POTASSIUM & MAGNESIUM XX SCH (08:00)
[2024-05-17] MEDS: K-DUR TAB 20 MEQ PO SCH (08:07)
[2024-05-17] MEDS: NS 1,000 ML IV 1,000 ML with MAGNESIUM SULFATE 50% INJ VIAL 2 G IV SCH (08:10)
--- NOTE | 2024-05-17 08:27 | EKG ---
Test Reason : afib Blood Pressure : */* mmHG Vent. Rate : 57 BPM Atrial Rate : 57 BPM P-R Int : 136 ms QRS Dur : 82 ms QT Int : 494 ms P-R-T Axes : 82 26 38 degrees QTc Int : 480 ms Sinus bradycardia Nonspecific T wave abnormality Prolonged QT Abnormal ECG When compared with ECG of 14-MAY-2024 22:12, Nonspecific T wave abnormality no longer evident in Inferior leads T wave inversion now evident in Anterior leads QT has lengthened Confirmed by Luis Galindo MD ([id number]) on 05/17/2024 1:14:01 PM Referred By: Confirmed By: Luis Galindo MD
[2024-05-17] MEDS: TOPROL XL PO SCH (08:37)
[2024-05-17] MEDS: MAG-OX TAB PO SCH (11:20)
[2024-05-17] MEDS: TYLENOL 325 MG TAB PO PRN (12:34)
[2024-05-17] MEDS ORDERED: BUTT CREAM (COMPOUND) TOP PRN (16:14)
[2024-05-18 05:37] LABS: BASOPHILS # (AUTO) 0.1 X10^3/uL (0.0-0.1); BASOPHILS % (AUTO) 1.5 % (0.2-1.0); EOSINOPHILS # (AUTO) 0.1 x10^3/uL (0.0-0.2); EOSINOPHILS % (AUTO) 1.4 % (0.9-2.9); HEMATOCRIT 35.3 % (36.0-47.0); HEMOGLOBIN 11.9 g/dL (12.0-16.0); LYMPHOCYTES # (AUTO) 1.9 X10^3/uL (1.3-2.9); LYMPHOCYTES % (AUTO) 27.4 % (21.0-51.0); MEAN CORPUSCULAR HEMOGLOBIN 30.1 pg (27.0-34.0); MEAN CORPUSCULAR HGB CONC 33.8 g/dL (33.0-35.0); MEAN CORPUSCULAR VOLUME 89.1 fL (80.0-100.0); MEAN PLATELET VOLUME 10.2 fL (7.4-11.0); MONOCYTES # (AUTO) 0.5 x10^3/uL (0.3-0.8); MONOCYTES % (AUTO) 7.5 % (0.0-13.0); NEUTROPHILS # (AUTO) 4.3 x10^3/uL (2.2-4.8); NEUTROPHILS % (AUTO) 62.2 % (42.0-75.0); PLATELET COUNT 175 X10^3/uL (150.0-450.0); RED BLOOD COUNT 3.97 X10^6/uL (3.5-5.4); RED CELL DISTRIBUTION WIDTH 16.7 % (11.6-16.5); WHITE BLOOD COUNT 6.9 X10^3/uL (3.6-10.0)
[2024-05-18 05:55] LABS: ALANINE AMINOTRANSFERASE 11 Units/L (12-78); ALBUMIN 2.5 g/dL (3.4-5.0); ALKALINE PHOSPHATASE 60 Units/L (46-116); ASPARTATE AMINO TRANSFERASE 10 Units/L (15-37); BLOOD UREA NITROGEN 5 mg/dL (7-18); CALCIUM 8.7 mg/dL (8.5-10.1); CARBON DIOXIDE 23.4 mmol/L (21-32); CHLORIDE 107 mmol/L (98-107); COR CA(FOR HYPOALB) 9.9 mg/dL (8.5-10.1); CREATININE 1.03 mg/dL (0.55-1.02); GLUCOSE 107 mg/dL (65-99); POTASSIUM 3.6 mmol/L (3.5-5.1); SODIUM 140 mmol/L (136-145); TOTAL PROTEIN 5.6 g/dL (6.4-8.2); eGFR NON BLACK RACES 54 (>60)
[2024-05-18 08:03] VITALS: BP 138/64; TEMP 98.3; O2SAT 97
[2024-05-18 10:12] VITALS: PULSE 63; RESP 25
== END 2024-05-18 10:10 | disposition home health service (06) ==
LOC: ICU 21:49 → ER 21:49 → ICU 05-15 02:57
PROVIDERS: ADMIT Internal Medicine; ATTEND Internal Medicine
DX: E11.65 Type 2 diabetes mellitus with hyperglycemia; A04.72 Enterocolitis due to Clostridium difficile, not specified as recurrent; Z29.89 Encounter for other specified prophylactic measures; R41.82 Altered mental status, unspecified; R62.7 Adult failure to thrive; A02.0 Salmonella enteritis; R94.31 Abnormal electrocardiogram [ECG] [EKG]; I16.0 Hypertensive urgency; I49.1 Atrial premature depolarization; N39.0 Urinary tract infection, site not specified; Z79.01 Long term (current) use of anticoagulants; G45.8 Other transient cerebral ischemic attacks and related syndromes; R53.1 Weakness; E83.42 Hypomagnesemia; R07.89 Other chest pain; E86.0 Dehydration; R26.89 Other abnormalities of gait and mobility

== ENCOUNTER 2024-06-06 13:13 | Observation (INO) ==
[2024-06-06 16:48] LABS: BASOPHILS # (AUTO) 0.1 X10^3/uL (0.0-0.1); BASOPHILS % (AUTO) 1.2 % (0.2-1.0); EOSINOPHILS # (AUTO) 0.1 x10^3/uL (0.0-0.2); EOSINOPHILS % (AUTO) 0.6 % (0.9-2.9); HEMATOCRIT 45.7 % (36.0-47.0); HEMOGLOBIN 15.3 g/dL (12.0-16.0); LYMPHOCYTES # (AUTO) 1.8 X10^3/uL (1.3-2.9); LYMPHOCYTES % (AUTO) 21.4 % (21.0-51.0); MEAN CORPUSCULAR HEMOGLOBIN 29.7 pg (27.0-34.0); MEAN CORPUSCULAR HGB CONC 33.6 g/dL (33.0-35.0); MEAN CORPUSCULAR VOLUME 88.5 fL (80.0-100.0); MONOCYTES # (AUTO) 0.6 x10^3/uL (0.3-0.8); MONOCYTES % (AUTO) 6.5 % (0.0-13.0); NEUTROPHILS % (AUTO) 70.3 % (42.0-75.0); PLATELET COUNT 233 X10^3/uL (150.0-450.0); RED BLOOD COUNT 5.17 X10^6/uL (3.5-5.4); WHITE BLOOD COUNT 8.5 X10^3/uL (3.6-10.0)
[2024-06-06 17:00] LABS: ALBUMIN 3.2 g/dL (3.4-5.0); ALKALINE PHOSPHATASE 79 Units/L (46-116); BLOOD UREA NITROGEN 10 mg/dL (7-18); CHLORIDE 99 mmol/L (98-107); GLUCOSE 107 mg/dL (65-99); SODIUM 135 mmol/L (136-145); TOTAL PROTEIN 6.8 g/dL (6.4-8.2)
[2024-06-06 17:54] LABS: ALANINE AMINOTRANSFERASE 14 Units/L (12-78); ASPARTATE AMINO TRANSFERASE 16 Units/L (15-37); CALCIUM 9.4 mg/dL (8.5-10.1); CREATININE 0.89 mg/dL (0.55-1.02); eGFR NON BLACK RACES > 60 (>60)
[2024-06-06 18:02] LABS: POTASSIUM 2.8 mmol/L (3.5-5.1)
[2024-06-06] MEDS: NS 1,000 ML IV 1,000 ML IV SCH (18:20)
[2024-06-06] MEDS: FLAGYL IV PREMIX 500 MG BAG 500 MG/100 ML BAG IV SCH (18:22)
[2024-06-06] MEDS ORDERED: CONSULT PHARMACY - POTASSIUM & MAGNESIUM XX SCH (19:00)
[2024-06-06] MEDS: CARDIZEM TAB 30 MG PLAIN PO SCH (20:34)
[2024-06-06] MEDS: MAG-OX TAB PO SCH (20:35)
[2024-06-06] MEDS: K-DUR TAB 20 MEQ PO SCH (20:35)
[2024-06-06 21:08] LABS: BILIRUBIN,URINE NEGATIVE (NEGATIVE); BLOOD/HEMOGLOBIN,URINE 2+ (NEGATIVE); GLUCOSE, URINE NEGATIVE (NEGATIVE); KETONES,URINE 3+ (NEGATIVE); LEUKOCYTE ESTERASE ,URINE 3+ (NEGATIVE); NITRITES,URINE NEGATIVE (NEGATIVE); PROTEIN,URINE 2+ (NEGATIVE); UROBILINOGEN,URINE NORMAL (NORMAL)
[2024-06-06 21:15] LABS: APPEARANCE,URINE HAZY (CLEAR); BACTERIA,URINE 2+ /HPF (NEGATIVE); COLOR,URINE YELLOW (YELLOW); SQUAMOUS EPITHELIAL CELL,UR NUMEROUS /HPF (NEGATIVE)
[2024-06-06 21:16] LABS: YEAST,URINE MANY /HPF (NEGATIVE)
[2024-06-06] MEDS: ELIQUIS PO SCH (21:55)
[2024-06-07] MEDS: SYNTHROID 50 mcg TAB PO SCH (05:34)
[2024-06-07 06:17] LABS: BASOPHILS # (AUTO) 0.1 X10^3/uL (0.0-0.1); BASOPHILS % (AUTO) 0.9 % (0.2-1.0); EOSINOPHILS # (AUTO) 0.1 x10^3/uL (0.0-0.2); EOSINOPHILS % (AUTO) 0.9 % (0.9-2.9); HEMOGLOBIN 14.2 g/dL (12.0-16.0); LYMPHOCYTES # (AUTO) 2.5 X10^3/uL (1.3-2.9); LYMPHOCYTES % (AUTO) 27.6 % (21.0-51.0); MEAN CORPUSCULAR HEMOGLOBIN 29.7 pg (27.0-34.0); MEAN CORPUSCULAR HGB CONC 33.8 g/dL (33.0-35.0); MEAN CORPUSCULAR VOLUME 87.9 fL (80.0-100.0); MEAN PLATELET VOLUME 9.7 fL (7.4-11.0); MONOCYTES # (AUTO) 0.7 x10^3/uL (0.3-0.8); MONOCYTES % (AUTO) 7.3 % (0.0-13.0); NEUTROPHILS # (AUTO) 5.7 x10^3/uL (2.2-4.8); NEUTROPHILS % (AUTO) 63.3 % (42.0-75.0); PLATELET COUNT 241 X10^3/uL (150.0-450.0); RED BLOOD COUNT 4.78 X10^6/uL (3.5-5.4)
[2024-06-07 06:40] LABS: ALANINE AMINOTRANSFERASE 9 Units/L (12-78); ALKALINE PHOSPHATASE 74 Units/L (46-116); ASPARTATE AMINO TRANSFERASE 15 Units/L (15-37); BLOOD UREA NITROGEN 10 mg/dL (7-18); CALCIUM 9.3 mg/dL (8.5-10.1); CARBON DIOXIDE 23.8 mmol/L (21-32); CHLORIDE 100 mmol/L (98-107); COR CA(FOR HYPOALB) 10.1 mg/dL (8.5-10.1); CREATININE 0.75 mg/dL (0.55-1.02); GLUCOSE 99 mg/dL (65-99); MAGNESIUM 1.5 mg/dL (2.0-2.9); SODIUM 136 mmol/L (136-145); TOTAL PROTEIN 6.4 g/dL (6.4-8.2); eGFR NON BLACK RACES > 60 (>60)
[2024-06-07 06:46] LABS: POTASSIUM 2.9 mmol/L (3.5-5.1)
[2024-06-07] MEDS ORDERED: CONSULT PHARMACY - POTASSIUM & MAGNESIUM XX SCH (07:00)
[2024-06-07] MEDS: TOPROL XL PO SCH (08:38)
[2024-06-07] MEDS ORDERED: K-DUR TAB 20 MEQ PO SCH (09:00)
[2024-06-07] MEDS ORDERED: MAG-OX TAB PO SCH (09:00)
[2024-06-07] MEDS: READI-CAT 2 ONE (09:34)
[2024-06-07] MEDS: NS + KCL 20 MEQ/L 1,000 ML with MAGNESIUM SULFATE 50% INJ VIAL 2 G IV SCH (09:48)
--- NOTE | 2024-06-07 10:52 | CT ---
EXAM:CT ABDOMEN AND PELVIS WITHOUT CONTRASTHISTORY:ABDMINAL PAIN, COLITIS;COMPARISON:March 11, 2024.TECHNIQUE:Axial CT images were obtained through the abdomen and pelvis without contrast. Coronal reformatted images were included.All CT scans at this facility use dose modulation, iterative reconstruction, and/or weight based dosing when appropriate to reduce radiation dose to as low as reasonably achievable.FINDINGS:Please note that without the use of intravenous contrast, evaluation of organ parenchyma is limited.LOWER THORAX: NormalABDOMEN:LIVER: NormalGALLBLADDER: NormalSPLEEN: Calcified granulomatous disease noted.PANCREAS: NormalKIDNEYS: NormalADRENAL GLANDS: NormalGI TRACT: Air-fluid level noted within the distal colon and rectum suggests possible diarrhea. No colonic wall thickening identified to suggest colitis however. No evidence of bowel obstruction. Normal appendix in the right lower quadrant.LYMPH NODES: No enlarged nodesVESSELS: Moderate atherosclerosis.PERITONEUM / RETROPERITONEUM: No free gasPELVIS:BLADDER: NormalGENITALS: NormalBONES: Degenerative changes are noted within the lumbar spine and pelvis.IMPRESSION:Air-fluid levels within the distal colon and rectum suggests possible diarrhea. No colonic wall thickening identified to suggest colitis.THIS IS AN ELECTRONICALLY VERIFIED FINAL REPORT06/07/2024 10:48 AM - Electronically signed by Williams Alan MD
--- NOTE | 2024-06-07 11:27 | RAD ---
EXAM:CHEST, 1 VIEWHISTORY:COUGH;COMPARISON:05/14/2024 .br.br.br.br stable.No acute airspace disease. No pneumothorax or effusion.No acute osseous abnormality.IMPRESSION:No acute cardiopulmonary disease.THIS IS AN ELECTRONICALLY VERIFIED FINAL REPORT06/07/2024 11:24 AM - Electronically signed by Wyatt Pruitt MD
--- NOTE | 2024-06-07 18:11 | DR.H&P ---
H&P History & Physical for Day of: H&P Date: 06/06/24 Chief Complaint Chief Complaint: weakness, n/v/d History of Present Illness History of Present Illness: PT IS 84 WF, DIRECT ADMIT WITH CO N/V/D, WEAKNESS AND UPPER RESPIRATORY SYMPTOMS. PT RECENTLY HAD INFECTIOUS COLITIS, WHICH HAD RESOLVED 2 WEEKS AGO AND THIS EPISODE STARTED LAST WEEK. PT HAD ABNORMAL POTASSIUM ON OUTPT BASIS. PT HAS HX OF AFIB ON ALF ANTICOAGULANT THERAPY AND HX OF RECENT TIA. PT HAS HTN, DM AND COPD. PT ADMITTED FOR TREATMENT AND EVALUATION OF ACUTE ILLNESS. Past Medical History Past Medical History: Arthritis, Asthma, Diabetes, Dyslipidemia, GERD, Hypertension and Hypothyroidism Past Surgical History Surgical History: Other Family History Family Medical History: Cancer Social History Type of Tobacco Use: None Does any household member use tobacco: No Alcohol Use: None Drug Use: None Medications Home Medications: Home Medications Medication Instructions Recorded Confirmed Type hydrocodone 10 mg-acetaminophen 1 tab PO TID PRN 02/02/24 06/06/24 History 325 mg tablet levothyroxine 50 mcg tablet 50 mcg PO QAM 02/02/24 06/06/24 History (Synthroid) metoprolol succinate 50 mg 50 mg PO QDAY 02/02/24 06/06/24 History tablet,extended release 24 hr (Toprol XL) esomeprazole magnesium 40 mg 40 mg PO QDAY 04/30/24 06/06/24 History capsule,delayed release (Nexium) megestrol 40 mg tablet 40 mg PO QDAY 04/30/24 06/06/24 History apixaban 2.5 mg tablet (Eliquis) 2.5 mg PO BID 05/14/24 06/06/24 History diclofenac sodium 1 % topical gel 1 ea topical QID 05/14/24 06/06/24 History doxycycline hyclate 100 mg capsule 100 mg PO BID 05/14/24 06/06/24 History furosemide 40 mg tablet 40 mg PO PRN PRN 05/14/24 06/06/24 History diltiazem HCl 30 mg tablet 60 mg PO Q6H 06/06/24 06/06/24 History magnesium oxide 400 mg PO BID 06/06/24 06/06/24 History vancomycin 250 mg capsule 250 mg PO BID 06/06/24 06/06/24 History Allergies Allergies Allergy/AdvReac Type Severity Reaction Status Date / Time cefpodoxime Allergy Severe ANAPHALEXIS Verified 06/06/24 16:20 REACTION levofloxacin [Levaquin] Allergy Unknown Verified 06/06/24 16:20 nitrofurantoin Allergy Unknown Hives; Verified 06/06/24 16:20 Itching; Rash penicillin V Allergy Unknown Verified 06/06/24 16:20 lidocaine Allergy Verified 06/06/24 16:20 codeine AdvReac Mild RASH Verified 06/06/24 16:20 penicillin G AdvReac Mild RASH Verified 06/06/24 16:20 procaine AdvReac Mild itching Verified 06/06/24 16:20 Sulfa (Sulfonamide AdvReac Mild RASH Verified 06/06/24 16:20 Antibiotics) [SULFA] Labs 06/07/24 05:18 06/07/24 05:18 Labs: Laboratory WBC 9.0 X10^3/uL (3.6-10.0) 06/07/24 05:18 RBC 4.78 X10^6/uL (3.5-5.4) 06/07/24 05:18 Hgb 14.2 g/dL (12.0-16.0) 06/07/24 05:18 Hct 42.0 % (36.0-47.0) 06/07/24 05:18 MCV 87.9 fL (80.0-100.0) 06/07/24 05:18 MCH 29.7 pg (27.0-34.0) 06/07/24 05:18 MCHC 33.8 g/dL (33.0-35.0) 06/07/24 05:18 RDW 16.0 % (11.6-16.5) 06/07/24 05:18 Plt Count 241 X10^3/uL (150.0-450.0) 06/07/24 05:18 MPV 9.7 fL (7.4-11.0) 06/07/24 05:18 Neut % (Auto) 63.3 % (42.0-75.0) 06/07/24 05:18 Lymph % (Auto) 27.6 % (21.0-51.0) 06/07/24 05:18 [place] % (Auto) 7.3 % (0.0-13.0) 06/07/24 05:18 Eos % (Auto) 0.9 % (0.9-2.9) 06/07/24 05:18 Baso % (Auto) 0.9 % (0.2-1.0) 06/07/24 05:18 Neut # (Auto) 5.7 x10^3/uL (2.2-4.8) H 06/07/24 05:18 Lymph # (Auto) 2.5 X10^3/uL (1.3-2.9) 06/07/24 05:18 [place] # (Auto) 0.7 x10^3/uL (0.3-0.8) 06/07/24 05:18 Eos # (Auto) 0.1 x10^3/uL (0.0-0.2) 06/07/24 05:18 Baso # (Auto) 0.1 X10^3/uL (0.0-0.1) 06/07/24 05:18 Absolute Nucleated RBC 0.1 /100WBC 06/07/24 05:18 Sodium 136 mmol/L (136-145) 06/07/24 05:18 Corrected Sodium TNP 06/07/24 05:18 Potassium 2.9 mmol/L (3.5-5.1) L* 06/07/24 05:18 Chloride 100 mmol/L (98-107) 06/07/24 05:18 Carbon Dioxide 23.8 mmol/L (21-32) 06/07/24 05:18 BUN 10 mg/dL (7-18) 06/07/24 05:18 Creatinine 0.75 mg/dL (0.55-1.02) 06/07/24 05:18 Est GFR (MDRD) Af Amer > 60 (>60) 06/07/24 05:18 Est GFR (MDRD) Non-Af > 60 (>60) 06/07/24 05:18 Glucose 99 mg/dL (65-99) 06/07/24 05:18 Calcium 9.3 mg/dL (8.5-10.1) 06/07/24 05:18 Corrected Calcium 10.1 mg/dL (8.5-10.1) 06/07/24 05:18 Magnesium 1.5 mg/dL (2.0-2.9) L 06/07/24 05:18 Total Bilirubin 0.80 mg/dL (0.2-1.0) 06/07/24 05:18 AST 15 Units/L (15-37) 06/07/24 05:18 ALT 9 Units/L (12-78) L 06/07/24 05:18 Alkaline Phosphatase 74 Units/L (46-116) 06/07/24 05:18 Total Protein 6.4 g/dL (6.4-8.2) 06/07/24 05:18 Albumin 3.0 g/dL (3.4-5.0) L 06/07/24 05:18 Globulin 3.4 g/dL (2.5-4.5) 06/07/24 05:18 Albumin/Globulin Ratio 0.9 Ratio (1.1-2.1) L 06/07/24 05:18 Specimen Type Clean catch urine 06/06/24 20:53 Urine Color Yellow (YELLOW) 06/06/24 20:53 Urine Appearance Hazy (CLEAR) 06/06/24 20:53 Urine pH 6.0 (5.0 - 8.0) 06/06/24 20:53 Ur Specific [place] 1.025 (1.000-1.030) 06/06/24 20:53 Urine Protein 2+ (NEGATIVE) 06/06/24 20:53 Urine Glucose (UA) Negative (NEGATIVE) 06/06/24 20:53 Urine Ketones 3+ (NEGATIVE) 06/06/24 20:53 Urine Blood 2+ (NEGATIVE) 06/06/24 20:53 Urine Nitrite Negative (NEGATIVE) 06/06/24 20:53 Urine Bilirubin Negative (NEGATIVE) 06/06/24 20:53 Urine Urobilinogen Normal (NORMAL) 06/06/24 20:53 Ur Leukocyte Esterase 3+ (NEGATIVE) 06/06/24 20:53 Urine RBC 3-5 /HPF (0-3) A 06/06/24 20:53 Urine WBC 30-50 /HPF (0-5) A 06/06/24 20:53 Ur Squamous Epith Cells Numerous /HPF (NEGATIVE) 06/06/24 20:53 Urine Bacteria 2+ /HPF (NEGATIVE) 06/06/24 20:53 Urine Yeast Many /HPF (NEGATIVE) 06/06/24 20:53 Ur Culture Indicated? Yes/culture set up 06/06/24 20:53 SARS-CoV-2 (PCR) Negative (NEGATIVE) 06/06/24 21:44 Influenza Type A (PCR) Negative (NEGATIVE) 06/06/24 21:44 Influenza Type B (PCR) Negative (NEGATIVE) 06/06/24 21:44 RSV (PCR) Negative (NEGATIVE) 06/06/24 21:44 Review of Systems Constitutional: Chills and Weakness Eyes: No Symptoms Reported ENT: No Symptoms Reported Respiratory: Shortness of Breath Cardiovascular: Edema; denies Chest Pain Gastrointestinal: Nausea, Vomiting, Abdominal Pain and Diarrhea Genitourinary: Frequency and Incontinence Musculoskeletal: Back Pain Skin: No Symptoms Reported Neurological: Weakness Physical Exam Vital Signs: Vital Signs Temperature 98 F Temperature 98.4 F Pulse Rate [Brachial] 75 Pulse Rate [Brachial] 80 Respiratory Rate 20 Respiratory Rate 20 Blood Pressure [Left Arm] 141/81 O2 Sat by Pulse Oximetry 96 O2 Sat by Pulse Oximetry 93 Oriented: Normal Eyes: Normal Ear: Normal Nose: Normal Throat: Dry Respiratory: Diminished Throughout Cardiovascular: negative Tachycardia or Edema Auscultation: Bowel Sounds: Increased Palpation: Normal Tenderness: LLQ and Epigastric Musculoskeletal: Back:Lumbar and Motor Deficit Mood Description: Depressed Affect: Depressed Speech Pattern: Delayed Assessment/Plan (1) Colitis: Status: Acute Plan: ADMIT, STOOL CULTURES IV ELECTROLYTE REPLACEMENT, IV HDYRATION BS AND BP CONTROL RESUME HOME MEDICATIONS PT/OT CONSULT IV ATBX, REHAB PLACEMENT FOR THERAPY (2) Atrial fibrillation: Qualifiers: Atrial fibrillation type: unspecified Qualified Code(s): I48.91 - Unspecified atrial fibrillation Status: Chronic (3) Acute hypokalemia: Status: Acute (4) Generalized weakness: Status: Acute (5) Benign essential hypertension: Status: None (6) Type 2 diabetes mellitus with obesity: Status: None
[2024-06-08 05:44] LABS: BASOPHILS # (AUTO) 0.1 X10^3/uL (0.0-0.1); BASOPHILS % (AUTO) 0.8 % (0.2-1.0); EOSINOPHILS # (AUTO) 0.1 x10^3/uL (0.0-0.2); EOSINOPHILS % (AUTO) 0.7 % (0.9-2.9); HEMATOCRIT 38.7 % (36.0-47.0); LYMPHOCYTES # (AUTO) 1.8 X10^3/uL (1.3-2.9); LYMPHOCYTES % (AUTO) 20.6 % (21.0-51.0); MEAN CORPUSCULAR HEMOGLOBIN 29.7 pg (27.0-34.0); MEAN CORPUSCULAR HGB CONC 33.7 g/dL (33.0-35.0); MEAN PLATELET VOLUME 9.7 fL (7.4-11.0); MONOCYTES # (AUTO) 0.8 x10^3/uL (0.3-0.8); MONOCYTES % (AUTO) 9.3 % (0.0-13.0); NEUTROPHILS % (AUTO) 68.6 % (42.0-75.0); PLATELET COUNT 237 X10^3/uL (150.0-450.0); RED CELL DISTRIBUTION WIDTH 15.8 % (11.6-16.5); WHITE BLOOD COUNT 8.8 X10^3/uL (3.6-10.0)
[2024-06-08 06:01] LABS: ALANINE AMINOTRANSFERASE 11 Units/L (12-78); ALBUMIN 2.7 g/dL (3.4-5.0); ALKALINE PHOSPHATASE 65 Units/L (46-116); ASPARTATE AMINO TRANSFERASE 13 Units/L (15-37); BLOOD UREA NITROGEN 9 mg/dL (7-18); CALCIUM 8.7 mg/dL (8.5-10.1); CARBON DIOXIDE 22.9 mmol/L (21-32); CHLORIDE 105 mmol/L (98-107); COR CA(FOR HYPOALB) 9.7 mg/dL (8.5-10.1); CREATININE 0.79 mg/dL (0.55-1.02); GLUCOSE 106 mg/dL (65-99); MAGNESIUM 2.2 mg/dL (2.0-2.9); POTASSIUM 3.1 mmol/L (3.5-5.1); SODIUM 139 mmol/L (136-145); TOTAL PROTEIN 5.8 g/dL (6.4-8.2); eGFR NON BLACK RACES > 60 (>60)
[2024-06-08] MEDS ORDERED: CONSULT PHARMACY - POTASSIUM & MAGNESIUM XX SCH (07:00)
[2024-06-08] MEDS: K-DUR TAB 20 MEQ PO SCH (08:55)
--- NOTE | 2024-06-08 09:27 | RAD ---
EXAMINATION:CHEST, PA/LAT ADULTHISTORY:PNEUMONIA; .COMPARISON STUDY:Chest x-ray 06/06/2024TECHNIQUE:Three views of the chest frontal and lateral projectionsFINDINGS:Lungs are expanded. Streaky opacity left pulmonary base. Mild cardiac silhouette enlargement. Normal pulmonary vascular pattern. Bones are intact.IMPRESSION:Mild cardiac silhouette enlargement. Streaky opacity left pulmonary base.THIS IS AN ELECTRONICALLY VERIFIED FINAL REPORT06/08/2024 9:23 AM - Electronically signed by Shannon Boucher MD
[2024-06-08 13:02] VITALS: BMI 31.8
[2024-06-08] MEDS: NS + KCL 20 MEQ/L 1,000 ML IV SCH (14:54)
[2024-06-08] MEDS: NORCO 10/325 TAB PO PRN (21:53)
[2024-06-09 06:07] LABS: ALANINE AMINOTRANSFERASE 8 Units/L (12-78); ALBUMIN 2.7 g/dL (3.4-5.0); ALKALINE PHOSPHATASE 61 Units/L (46-116); ASPARTATE AMINO TRANSFERASE 11 Units/L (15-37); BLOOD UREA NITROGEN 8 mg/dL (7-18); CALCIUM 8.5 mg/dL (8.5-10.1); CARBON DIOXIDE 23.3 mmol/L (21-32); CHLORIDE 106 mmol/L (98-107); COR CA(FOR HYPOALB) 9.5 mg/dL (8.5-10.1); CREATININE 0.76 mg/dL (0.55-1.02); GLUCOSE 108 mg/dL (65-99); POTASSIUM 3.8 mmol/L (3.5-5.1); SODIUM 139 mmol/L (136-145); TOTAL PROTEIN 5.6 g/dL (6.4-8.2); eGFR NON BLACK RACES > 60 (>60)
[2024-06-09 06:21] LABS: BASOPHILS # (AUTO) 0.2 X10^3/uL (0.0-0.1); BASOPHILS % (AUTO) 1.7 % (0.2-1.0); EOSINOPHILS # (AUTO) 0.1 x10^3/uL (0.0-0.2); EOSINOPHILS % (AUTO) 0.7 % (0.9-2.9); HEMATOCRIT 40.9 % (36.0-47.0); HEMOGLOBIN 13.8 g/dL (12.0-16.0); LYMPHOCYTES # (AUTO) 2.6 X10^3/uL (1.3-2.9); LYMPHOCYTES % (AUTO) 30.2 % (21.0-51.0); MEAN CORPUSCULAR HEMOGLOBIN 29.6 pg (27.0-34.0); MEAN CORPUSCULAR HGB CONC 33.7 g/dL (33.0-35.0); MEAN PLATELET VOLUME 10.1 fL (7.4-11.0); MONOCYTES # (AUTO) 0.8 x10^3/uL (0.3-0.8); MONOCYTES % (AUTO) 9.4 % (0.0-13.0); NEUTROPHILS # (AUTO) 5.1 x10^3/uL (2.2-4.8); PLATELET COUNT 213 X10^3/uL (150.0-450.0); RED BLOOD COUNT 4.65 X10^6/uL (3.5-5.4); RED CELL DISTRIBUTION WIDTH 15.9 % (11.6-16.5); WHITE BLOOD COUNT 8.7 X10^3/uL (3.6-10.0)
--- NOTE | 2024-06-09 11:56 | PCM.PROG ---
Progress Note Progress Note for Day of Date of Exam: 06/09/24 Subjective Subjective: Patient seen at bedside, no acute events overnight. She states diarrhea has improved; she has not had any episodes today. She reports eating well. She is currently admitted for UTI and diarrhea. CTAP did show diarrhea, no colitis. Stool Cx is growing yeast. She is currently on flagyl. Labs/imaging reviewed: - WBC 8.7 Hgb 13.8 K 3.8 BUN/Cr 8/0.76 -Fecal WBCs + FOBT + -CTAP reviewed Plan: continue current treatment. Follow final Cx. Continue metronidazole. Continue hydration. Will add Diflucan. Replace electrolytes as needed. Continue home medications. PT/OT as tolerated. Patient prefers to go home. Monitor AM labs/imaging. Past Medical Family Social History Allergies: Allergies cefpodoxime Allergy (Severe, Verified 06/06/24 16:20) ANAPHALEXIS REACTION Throat was swelling closed levofloxacin [Levaquin] Allergy (Unknown, Verified 06/06/24 16:20) Reason: Drug allergy nitrofurantoin Allergy (Unknown, Verified 06/06/24 16:20) Hives; Itching; Rash Reason: Drug allergy penicillin V Allergy (Unknown, Verified 06/06/24 16:20) Reason: Drug allergy lidocaine Allergy (Verified 06/06/24 16:20) codeine Adverse Reaction (Mild, Verified 06/06/24 16:20) RASH penicillin G Adverse Reaction (Mild, Verified 06/06/24 16:20) RASH procaine Adverse Reaction (Mild, Verified 06/06/24 16:20) itching Sulfa (Sulfonamide Antibiotics) [SULFA] Adverse Reaction (Mild, Verified 06/06/24 16:20) RASH Vital Signs and I&O's Vital Signs: Vital Signs Temperature 97.8 F Temperature 98.1 F Pulse Rate [Brachial] 82 Pulse Rate [Brachial] 83 Respiratory Rate 18 Respiratory Rate 18 Blood Pressure [Left Arm] 122/71 Blood Pressure [Right Arm] 149/86 O2 Sat by Pulse Oximetry 95 O2 Sat by Pulse Oximetry 96 Intake and Output: Intake & Output 06/06/24 06/07/24 06/08/24 06/09/24 23:59 23:59 23:59 23:59 Intake Total 450 / 450 2505 / 2505 2881 / 2881 520 / 520 Balance 450 / 450 2505 / 2505 2881 / 2881 520 / 520 Physical Exam Oriented: Normal Eyes: Normal Ear: Normal Nose: Normal Throat: Dry Respiratory: Generalized and Diminished Cardiovascular: Normal Auscultation: Bowel Sounds: Normal Palpation: Normal Tenderness: Normal Skin: Decreased Turgur Musculoskeletal: Back:Lumbar and Motor Deficit Psychiatric: Normal Mood Description: Calm Affect: Normal Speech Pattern: Clear Laboratory and Diagnostics 06/09/24 05:21 06/09/24 05:21 Labs: 06/07/24 11:15 Stool Stool Culture - Preliminary 06/07/24 11:15 Stool - Final 06/06/24 18:02 Blood Blood Culture - Preliminary 06/06/24 17:55 Blood Blood Culture - Preliminary 06/06/24 20:53 Urine,Clean Catch Urine Culture - Final Laboratory WBC 8.7 X10^3/uL (3.6-10.0) 06/09/24 05:21 RBC 4.65 X10^6/uL (3.5-5.4) 06/09/24 05:21 Hgb 13.8 g/dL (12.0-16.0) 06/09/24 05:21 Hct 40.9 % (36.0-47.0) 06/09/24 05:21 MCV 88.0 fL (80.0-100.0) 06/09/24 05:21 MCH 29.6 pg (27.0-34.0) 06/09/24 05:21 MCHC 33.7 g/dL (33.0-35.0) 06/09/24 05:21 RDW 15.9 % (11.6-16.5) 06/09/24 05:21 Plt Count 213 X10^3/uL (150.0-450.0) 06/09/24 05:21 MPV 10.1 fL (7.4-11.0) 06/09/24 05:21 Neut % (Auto) 58.0 % (42.0-75.0) 06/09/24 05:21 Lymph % (Auto) 30.2 % (21.0-51.0) 06/09/24 05:21 [place] % (Auto) 9.4 % (0.0-13.0) 06/09/24 05:21 Eos % (Auto) 0.7 % (0.9-2.9) L 06/09/24 05:21 Baso % (Auto) 1.7 % (0.2-1.0) H 06/09/24 05:21 Neut # (Auto) 5.1 x10^3/uL (2.2-4.8) H 06/09/24 05:21 Lymph # (Auto) 2.6 X10^3/uL (1.3-2.9) 06/09/24 05:21 [place] # (Auto) 0.8 x10^3/uL (0.3-0.8) 06/09/24 05:21 Eos # (Auto) 0.1 x10^3/uL (0.0-0.2) 06/09/24 05:21 Baso # (Auto) 0.2 X10^3/uL (0.0-0.1) H 06/09/24 05:21 Absolute Nucleated RBC 0.2 /100WBC 06/09/24 05:21 Sodium 139 mmol/L (136-145) 06/09/24 05:21 Corrected Sodium TNP 06/09/24 05:21 Potassium 3.8 mmol/L (3.5-5.1) 06/09/24 05:21 Chloride 106 mmol/L (98-107) 06/09/24 05:21 Carbon Dioxide 23.3 mmol/L (21-32) 06/09/24 05:21 BUN 8 mg/dL (7-18) 06/09/24 05:21 Creatinine 0.76 mg/dL (0.55-1.02) 06/09/24 05:21 Est GFR (MDRD) Af Amer > 60 (>60) 06/09/24 05:21 Est GFR (MDRD) Non-Af > 60 (>60) 06/09/24 05:21 Glucose 108 mg/dL (65-99) H 06/09/24 05:21 Calcium 8.5 mg/dL (8.5-10.1) 06/09/24 05:21 Corrected Calcium 9.5 mg/dL (8.5-10.1) 06/09/24 05:21 Magnesium 2.2 mg/dL (2.0-2.9) 06/08/24 05:26 Total Bilirubin 0.60 mg/dL (0.2-1.0) 06/09/24 05:21 AST 11 Units/L (15-37) L 06/09/24 05:21 ALT 8 Units/L (12-78) L 06/09/24 05:21 Alkaline Phosphatase 61 Units/L (46-116) 06/09/24 05:21 Total Protein 5.6 g/dL (6.4-8.2) L 06/09/24 05:21 Albumin 2.7 g/dL (3.4-5.0) L 06/09/24 05:21 Globulin 2.9 g/dL (2.5-4.5) 06/09/24 05:21 Albumin/Globulin Ratio 0.9 Ratio (1.1-2.1) L 06/09/24 05:21 Specimen Type Clean catch urine 06/06/24 20:53 Urine Color Yellow (YELLOW) 06/06/24 20:53 Urine Appearance Hazy (CLEAR) 06/06/24 20:53 Urine pH 6.0 (5.0 - 8.0) 06/06/24 20:53 Ur Specific [place] 1.025 (1.000-1.030) 06/06/24 20:53 Urine Protein 2+ (NEGATIVE) 06/06/24 20:53 Urine Glucose (UA) Negative (NEGATIVE) 06/06/24 20:53 Urine Ketones 3+ (NEGATIVE) 06/06/24 20:53 Urine Blood 2+ (NEGATIVE) 06/06/24 20:53 Urine Nitrite Negative (NEGATIVE) 06/06/24 20:53 Urine Bilirubin Negative (NEGATIVE) 06/06/24 20:53 Urine Urobilinogen Normal (NORMAL) 06/06/24 20:53 Ur Leukocyte Esterase 3+ (NEGATIVE) 06/06/24 20:53 Urine RBC 3-5 /HPF (0-3) A 06/06/24 20:53 Urine WBC 30-50 /HPF (0-5) A 06/06/24 20:53 Ur Squamous Epith Cells Numerous /HPF (NEGATIVE) 06/06/24 20:53 Urine Bacteria 2+ /HPF (NEGATIVE) 06/06/24 20:53 Urine Yeast Many /HPF (NEGATIVE) 06/06/24 20:53 Ur Culture Indicated? Yes/culture set up 06/06/24 20:53 Stl Occult Blood (IFOB) Positive (NEGATIVE) A 06/07/24 11:15 Stool for White Cells Positive (NEGATIVE) A 06/07/24 11:15 Stl C. diff Tox B Gene Negative (NEGATIVE) 06/07/24 11:15 Stl C. diff [id number] Presumptive negative (NEGATIVE) 06/07/24 11:15 Stool H. pylori Ag Negative (NEGATIVE) 06/07/24 11:15 SARS-CoV-2 (PCR) Negative (NEGATIVE) 06/06/24 21:44 Influenza Type A (PCR) Negative (NEGATIVE) 06/06/24 21:44 Influenza Type B (PCR) Negative (NEGATIVE) 06/06/24 21:44 RSV (PCR) Negative (NEGATIVE) 06/06/24 21:44 Plan (1) Colitis: Status: Acute (2) Atrial fibrillation: Status: Chronic Qualifiers: Atrial fibrillation type: unspecified Qualified Code(s): I48.91 - Unspecified atrial fibrillation (3) Acute hypokalemia: Status: Acute (4) Generalized weakness: Status: Acute (5) Benign essential hypertension: Status: None (6) Type 2 diabetes mellitus with obesity: Status: None (7) Yeast in stool: Status: Acute
[2024-06-09] MEDS: DIFLUCAN PO SCH (13:22)
[2024-06-09] MEDS: ZOFRAN INJ 4 MG VIAL IVP PRN (16:13)
[2024-06-10 06:59] LABS: BASOPHILS # (AUTO) 0.1 X10^3/uL (0.0-0.1); BASOPHILS % (AUTO) 1.4 % (0.2-1.0); EOSINOPHILS # (AUTO) 0.1 x10^3/uL (0.0-0.2); EOSINOPHILS % (AUTO) 0.8 % (0.9-2.9); HEMATOCRIT 41.1 % (36.0-47.0); HEMOGLOBIN 13.7 g/dL (12.0-16.0); LYMPHOCYTES # (AUTO) 2.2 X10^3/uL (1.3-2.9); MEAN CORPUSCULAR HEMOGLOBIN 29.6 pg (27.0-34.0); MEAN CORPUSCULAR HGB CONC 33.3 g/dL (33.0-35.0); MEAN CORPUSCULAR VOLUME 88.8 fL (80.0-100.0); MEAN PLATELET VOLUME 10.5 fL (7.4-11.0); MONOCYTES # (AUTO) 0.7 x10^3/uL (0.3-0.8); MONOCYTES % (AUTO) 7.2 % (0.0-13.0); NEUTROPHILS # (AUTO) 6.7 x10^3/uL (2.2-4.8); NEUTROPHILS % (AUTO) 68.6 % (42.0-75.0); PLATELET COUNT 217 X10^3/uL (150.0-450.0); RED BLOOD COUNT 4.63 X10^6/uL (3.5-5.4); RED CELL DISTRIBUTION WIDTH 16.2 % (11.6-16.5); WHITE BLOOD COUNT 9.8 X10^3/uL (3.6-10.0)
[2024-06-10 07:26] LABS: ALANINE AMINOTRANSFERASE 9 Units/L (12-78); ALBUMIN 2.6 g/dL (3.4-5.0); ALKALINE PHOSPHATASE 61 Units/L (46-116); ASPARTATE AMINO TRANSFERASE 13 Units/L (15-37); BLOOD UREA NITROGEN 5 mg/dL (7-18); CALCIUM 8.9 mg/dL (8.5-10.1); CARBON DIOXIDE 21.3 mmol/L (21-32); CHLORIDE 104 mmol/L (98-107); CREATININE 0.73 mg/dL (0.55-1.02); GLUCOSE 105 mg/dL (65-99); POTASSIUM 3.9 mmol/L (3.5-5.1); SODIUM 138 mmol/L (136-145); TOTAL PROTEIN 5.7 g/dL (6.4-8.2); eGFR NON BLACK RACES > 60 (>60)
--- NOTE | 2024-06-10 11:48 | PCM.PROG ---
Progress Note Progress Note for Day of Date of Exam: 06/10/24 Subjective Subjective: Patient seen at bedside, no acute events overnight. She is not having any diarrhea now. She has been eating better. She reports eating well. She is currently admitted for UTI and diarrhea. CTAP did show diarrhea, no colitis. Stool Cx is growing yeast. She is currently on flagyl and diflucan. Labs/imaging reviewed: - WBC 9.8 Hgb 13.7 K 3.9 BUN/Cr 5/0.73 -Stool Cx yeast -Fecal WBCs + FOBT + -CTAP reviewed Plan: continue current treatment. Follow final Cx. Continue metronidazole and Diflucan. Replace electrolytes as needed. Continue home medications. PT/OT as tolerated. Patient prefers to go home. Monitor AM labs/imaging. CM to work on DC planning tomorrow. Past Medical Family Social History Allergies: Allergies cefpodoxime Allergy (Severe, Verified 06/06/24 16:20) ANAPHALEXIS REACTION Throat was swelling closed levofloxacin [Levaquin] Allergy (Unknown, Verified 06/06/24 16:20) Reason: Drug allergy nitrofurantoin Allergy (Unknown, Verified 06/06/24 16:20) Hives; Itching; Rash Reason: Drug allergy penicillin V Allergy (Unknown, Verified 06/06/24 16:20) Reason: Drug allergy lidocaine Allergy (Verified 06/06/24 16:20) codeine Adverse Reaction (Mild, Verified 06/06/24 16:20) RASH penicillin G Adverse Reaction (Mild, Verified 06/06/24 16:20) RASH procaine Adverse Reaction (Mild, Verified 06/06/24 16:20) itching Sulfa (Sulfonamide Antibiotics) [SULFA] Adverse Reaction (Mild, Verified 06/06/24 16:20) RASH Vital Signs and I&O's Vital Signs: Vital Signs Temperature 98.1 F Temperature 97.8 F Pulse Rate [Brachial] 72 Pulse Rate [Brachial] 85 Respiratory Rate 19 Respiratory Rate 20 Blood Pressure [Left Arm] 118/67 Blood Pressure [Left Arm] 139/68 O2 Sat by Pulse Oximetry 97 O2 Sat by Pulse Oximetry 96 Intake and Output: Intake & Output 06/07/24 06/08/24 06/09/24 06/10/24 23:59 23:59 23:59 23:59 Intake Total 2505 / 2505 2881 / 2881 3460 / 3460 50 / 50 Output Total 2 / 2 Balance 2505 / 2505 2881 / 2881 3458 / 3458 50 / 50 Physical Exam Oriented: Normal Eyes: Normal Ear: Normal Nose: Normal Throat: Normal Respiratory: Generalized and Diminished Cardiovascular: Normal Auscultation: Bowel Sounds: Normal Palpation: Normal Tenderness: Normal Skin: Decreased Turgur Musculoskeletal: Back:Lumbar and Motor Deficit Psychiatric: Normal Mood Description: Calm Affect: Normal Speech Pattern: Clear and Appropriate Laboratory and Diagnostics 06/10/24 06:15 06/10/24 06:15 Labs: 06/07/24 11:15 Stool Stool Culture - Preliminary 06/07/24 11:15 Stool - Final 06/06/24 18:02 Blood Blood Culture - Preliminary 06/06/24 17:55 Blood Blood Culture - Preliminary 06/06/24 20:53 Urine,Clean Catch Urine Culture - Final Laboratory WBC 9.8 X10^3/uL (3.6-10.0) 06/10/24 06:15 RBC 4.63 X10^6/uL (3.5-5.4) 06/10/24 06:15 Hgb 13.7 g/dL (12.0-16.0) 06/10/24 06:15 Hct 41.1 % (36.0-47.0) 06/10/24 06:15 MCV 88.8 fL (80.0-100.0) 06/10/24 06:15 MCH 29.6 pg (27.0-34.0) 06/10/24 06:15 MCHC 33.3 g/dL (33.0-35.0) 06/10/24 06:15 RDW 16.2 % (11.6-16.5) 06/10/24 06:15 Plt Count 217 X10^3/uL (150.0-450.0) 06/10/24 06:15 MPV 10.5 fL (7.4-11.0) 06/10/24 06:15 Neut % (Auto) 68.6 % (42.0-75.0) 06/10/24 06:15 Lymph % (Auto) 22.0 % (21.0-51.0) 06/10/24 06:15 [place] % (Auto) 7.2 % (0.0-13.0) 06/10/24 06:15 Eos % (Auto) 0.8 % (0.9-2.9) L 06/10/24 06:15 Baso % (Auto) 1.4 % (0.2-1.0) H 06/10/24 06:15 Neut # (Auto) 6.7 x10^3/uL (2.2-4.8) H 06/10/24 06:15 Lymph # (Auto) 2.2 X10^3/uL (1.3-2.9) 06/10/24 06:15 [place] # (Auto) 0.7 x10^3/uL (0.3-0.8) 06/10/24 06:15 Eos # (Auto) 0.1 x10^3/uL (0.0-0.2) 06/10/24 06:15 Baso # (Auto) 0.1 X10^3/uL (0.0-0.1) 06/10/24 06:15 Absolute Nucleated RBC 0.0 /100WBC 06/10/24 06:15 Sodium 138 mmol/L (136-145) 06/10/24 06:15 Corrected Sodium TNP 06/10/24 06:15 Potassium 3.9 mmol/L (3.5-5.1) 06/10/24 06:15 Chloride 104 mmol/L (98-107) 06/10/24 06:15 Carbon Dioxide 21.3 mmol/L (21-32) 06/10/24 06:15 BUN 5 mg/dL (7-18) L 06/10/24 06:15 Creatinine 0.73 mg/dL (0.55-1.02) 06/10/24 06:15 Est GFR (MDRD) Af Amer > 60 (>60) 06/10/24 06:15 Est GFR (MDRD) Non-Af > 60 (>60) 06/10/24 06:15 Glucose 105 mg/dL (65-99) H 06/10/24 06:15 Calcium 8.9 mg/dL (8.5-10.1) 06/10/24 06:15 Corrected Calcium 10.0 mg/dL (8.5-10.1) 06/10/24 06:15 Magnesium 2.2 mg/dL (2.0-2.9) 06/08/24 05:26 Total Bilirubin 0.60 mg/dL (0.2-1.0) 06/10/24 06:15 AST 13 Units/L (15-37) L 06/10/24 06:15 ALT 9 Units/L (12-78) L 06/10/24 06:15 Alkaline Phosphatase 61 Units/L (46-116) 06/10/24 06:15 Total Protein 5.7 g/dL (6.4-8.2) L 06/10/24 06:15 Albumin 2.6 g/dL (3.4-5.0) L 06/10/24 06:15 Globulin 3.1 g/dL (2.5-4.5) 06/10/24 06:15 Albumin/Globulin Ratio 0.8 Ratio (1.1-2.1) L 06/10/24 06:15 Specimen Type Clean catch urine 06/06/24 20:53 Urine Color Yellow (YELLOW) 06/06/24 20:53 Urine Appearance Hazy (CLEAR) 06/06/24 20:53 Urine pH 6.0 (5.0 - 8.0) 06/06/24 20:53 Ur Specific [place] 1.025 (1.000-1.030) 06/06/24 20:53 Urine Protein 2+ (NEGATIVE) 06/06/24 20:53 Urine Glucose (UA) Negative (NEGATIVE) 06/06/24 20:53 Urine Ketones 3+ (NEGATIVE) 06/06/24 20:53 Urine Blood 2+ (NEGATIVE) 06/06/24 20:53 Urine Nitrite Negative (NEGATIVE) 06/06/24 20:53 Urine Bilirubin Negative (NEGATIVE) 06/06/24 20:53 Urine Urobilinogen Normal (NORMAL) 06/06/24 20:53 Ur Leukocyte Esterase 3+ (NEGATIVE) 06/06/24 20:53 Urine RBC 3-5 /HPF (0-3) A 06/06/24 20:53 Urine WBC 30-50 /HPF (0-5) A 06/06/24 20:53 Ur Squamous Epith Cells Numerous /HPF (NEGATIVE) 06/06/24 20:53 Urine Bacteria 2+ /HPF (NEGATIVE) 06/06/24 20:53 Urine Yeast Many /HPF (NEGATIVE) 06/06/24 20:53 Ur Culture Indicated? Yes/culture set up 06/06/24 20:53 Stl Occult Blood (IFOB) Positive (NEGATIVE) A 06/07/24 11:15 Stool for White Cells Positive (NEGATIVE) A 06/07/24 11:15 Stl C. diff Tox B Gene Negative (NEGATIVE) 06/07/24 11:15 Stl C. diff [id number] Presumptive negative (NEGATIVE) 06/07/24 11:15 Stool H. pylori Ag Negative (NEGATIVE) 06/07/24 11:15 SARS-CoV-2 (PCR) Negative (NEGATIVE) 06/06/24 21:44 Influenza Type A (PCR) Negative (NEGATIVE) 06/06/24 21:44 Influenza Type B (PCR) Negative (NEGATIVE) 06/06/24 21:44 RSV (PCR) Negative (NEGATIVE) 06/06/24 21:44 Plan (1) Colitis: Status: Acute (2) Atrial fibrillation: Status: Chronic Qualifiers: Atrial fibrillation type: unspecified Qualified Code(s): I48.91 - Unspecified atrial fibrillation (3) Acute hypokalemia: Status: Acute (4) Generalized weakness: Status: Acute (5) Benign essential hypertension: Status: None (6) Type 2 diabetes mellitus with obesity: Status: None (7) Yeast in stool: Status: Acute
[2024-06-11 06:51] LABS: BASOPHILS # (AUTO) 0.1 X10^3/uL (0.0-0.1); BASOPHILS % (AUTO) 1.2 % (0.2-1.0); EOSINOPHILS # (AUTO) 0.1 x10^3/uL (0.0-0.2); EOSINOPHILS % (AUTO) 0.6 % (0.9-2.9); HEMATOCRIT 39.8 % (36.0-47.0); HEMOGLOBIN 13.6 g/dL (12.0-16.0); LYMPHOCYTES # (AUTO) 2.5 X10^3/uL (1.3-2.9); LYMPHOCYTES % (AUTO) 24.7 % (21.0-51.0); MEAN CORPUSCULAR HEMOGLOBIN 30.2 pg (27.0-34.0); MEAN CORPUSCULAR HGB CONC 34.1 g/dL (33.0-35.0); MEAN CORPUSCULAR VOLUME 88.5 fL (80.0-100.0); MEAN PLATELET VOLUME 10.7 fL (7.4-11.0); MONOCYTES # (AUTO) 1.1 x10^3/uL (0.3-0.8); MONOCYTES % (AUTO) 10.7 % (0.0-13.0); NEUTROPHILS # (AUTO) 6.4 x10^3/uL (2.2-4.8); NEUTROPHILS % (AUTO) 62.8 % (42.0-75.0); PLATELET COUNT 194 X10^3/uL (150.0-450.0); RED BLOOD COUNT 4.49 X10^6/uL (3.5-5.4); RED CELL DISTRIBUTION WIDTH 16.2 % (11.6-16.5); WHITE BLOOD COUNT 10.2 X10^3/uL (3.6-10.0)
[2024-06-11 07:22] LABS: PLATELET MORPHOLOGY COMMENT NORMAL (NORMAL)
[2024-06-11 07:49] LABS: ALANINE AMINOTRANSFERASE 8 Units/L (12-78); ALBUMIN 2.7 g/dL (3.4-5.0); ALKALINE PHOSPHATASE 60 Units/L (46-116); ASPARTATE AMINO TRANSFERASE 13 Units/L (15-37); BLOOD UREA NITROGEN 6 mg/dL (7-18); CALCIUM 9.2 mg/dL (8.5-10.1); CARBON DIOXIDE 20.5 mmol/L (21-32); CHLORIDE 104 mmol/L (98-107); COR CA(FOR HYPOALB) 10.2 mg/dL (8.5-10.1); CREATININE 0.76 mg/dL (0.55-1.02); GLUCOSE 105 mg/dL (65-99); SODIUM 136 mmol/L (136-145); eGFR NON BLACK RACES > 60 (>60)
[2024-06-11] MEDS: VISBIOME PROBIOTIC CAP 112.5 B or equivalent PO SCH (09:53)
[2024-06-11] MEDS ORDERED: ROBITUSSIN DM PO PRN (10:59)
[2024-06-11] MEDS: DIFLUCAN PO SCH (11:46)
[2024-06-12 06:08] LABS: BASOPHILS # (AUTO) 0.1 X10^3/uL (0.0-0.1); BASOPHILS % (AUTO) 0.7 % (0.2-1.0); EOSINOPHILS # (AUTO) 0.1 x10^3/uL (0.0-0.2); EOSINOPHILS % (AUTO) 0.8 % (0.9-2.9); HEMATOCRIT 37.3 % (36.0-47.0); HEMOGLOBIN 12.6 g/dL (12.0-16.0); LYMPHOCYTES # (AUTO) 2.3 X10^3/uL (1.3-2.9); LYMPHOCYTES % (AUTO) 25.4 % (21.0-51.0); MEAN CORPUSCULAR HEMOGLOBIN 29.9 pg (27.0-34.0); MEAN CORPUSCULAR HGB CONC 33.9 g/dL (33.0-35.0); MEAN CORPUSCULAR VOLUME 88.2 fL (80.0-100.0); MEAN PLATELET VOLUME 10.4 fL (7.4-11.0); MONOCYTES # (AUTO) 0.9 x10^3/uL (0.3-0.8); MONOCYTES % (AUTO) 9.4 % (0.0-13.0); NEUTROPHILS # (AUTO) 5.8 x10^3/uL (2.2-4.8); NEUTROPHILS % (AUTO) 63.7 % (42.0-75.0); PLATELET COUNT 203 X10^3/uL (150.0-450.0); RED BLOOD COUNT 4.23 X10^6/uL (3.5-5.4); RED CELL DISTRIBUTION WIDTH 16.4 % (11.6-16.5)
[2024-06-12 06:22] LABS: ALBUMIN 2.5 g/dL (3.4-5.0); ALKALINE PHOSPHATASE 52 Units/L (46-116); ASPARTATE AMINO TRANSFERASE 8 Units/L (15-37); BLOOD UREA NITROGEN 7 mg/dL (7-18); CALCIUM 8.6 mg/dL (8.5-10.1); CARBON DIOXIDE 21.7 mmol/L (21-32); CHLORIDE 106 mmol/L (98-107); COR CA(FOR HYPOALB) 9.8 mg/dL (8.5-10.1); CREATININE 0.84 mg/dL (0.55-1.02); GLUCOSE 101 mg/dL (65-99); MAGNESIUM 1.4 mg/dL (2.0-2.9); SODIUM 137 mmol/L (136-145); TOTAL PROTEIN 5.5 g/dL (6.4-8.2); eGFR NON BLACK RACES > 60 (>60)
[2024-06-12 06:42] LABS: ALANINE AMINOTRANSFERASE 9 Units/L (12-78)
--- NOTE | 2024-06-12 07:14 | RAD ---
EXAM: CHEST, 1 VIEW HISTORY: Congestion; HTN COMPARISON: Prior study or studies were utilized for comparison during interpretation with the most relevant kanu ed 06/08/2024 TECHNIQUE: CHEST, 1 VIEW FINDINGS: Chest: Lines and tubes: Cardiac leads overlie the chest. Mediastinum: Borderline cardiomegaly. Pulmonary vessels: Pulmonary vasculature is prominent. Lung greene: No suspicious airspace opacity. Pleura: No effusion. No pneumothorax. Bones and soft tissues: No acute osseous or soft tissue abnormality. IMPRESSION: 1. No acute cardiopulmonary abnormality THIS IS AN ELECTRONICALLY VERIFIED FINAL REPORT 06/12/2024 7:11 AM - Electronically signed by Facundo Lopez MD
[2024-06-12] MEDS: MAGNESIUM SULFATE 1 GRAM/100 mL PREMIX 1 G/100 ML BAG IV ONE (10:30)
[2024-06-12 12:04] VITALS: BP 130/68; PULSE 83; RESP 18; TEMP 97.5; O2SAT 98
== END 2024-06-12 14:50 | disposition home health service (06) ==
LOC: MED/SURG
PROVIDERS: ADMIT Internal Medicine; ATTEND Internal Medicine
DX: B37.82 Candidal enteritis; N39.0 Urinary tract infection, site not specified; M19.90 Unspecified osteoarthritis, unspecified site; R10.32 Left lower quadrant pain; Z86.73 Personal history of transient ischemic attack (TIA), and cerebral infarction without residual deficits; E11.69 Type 2 diabetes mellitus with other specified complication; I48.91 Unspecified atrial fibrillation; Z68.33 Body mass index [BMI] 33.0-33.9, adult; E66.9 Obesity, unspecified; I10 Essential (primary) hypertension; E83.42 Hypomagnesemia; Z03.818 Encounter for observation for suspected exposure to other biological agents ruled out; E87.6 Hypokalemia; J40 Bronchitis, not specified as acute or chronic; R26.89 Other abnormalities of gait and mobility; Z79.01 Long term (current) use of anticoagulants; J44.9 Chronic obstructive pulmonary disease, unspecified; E86.0 Dehydration; R53.1 Weakness; J06.9 Acute upper respiratory infection, unspecified; K52.89 Other specified noninfective gastroenteritis and colitis; R10.13 Epigastric pain; Z86.19 Personal history of other infectious and parasitic diseases; K21.9 Gastro-esophageal reflux disease without esophagitis; R06.02 Shortness of breath

== ENCOUNTER 2024-07-25 16:36 | Observation (INO) ==
[2024-07-25] MEDS ORDERED: NORCO 5/325 MG TAB PO PRN (17:51)
[2024-07-25] MEDS ORDERED: NovoLIN R (or HumuLIN R) SUBCUT PRN (17:52)
--- NOTE | 2024-07-25 18:04 | DR.H&P ---
H&P History & Physical for Day of: H&P Date: 07/25/24 Chief Complaint Chief Complaint: ABDOMINAL PAIN, WEAKNESS, NO BM IN 10 DAYS History of Present Illness History of Present Illness: PT IS 84 WF, DIRECT ADMIT WITH CO LOWER ABDOMINAL PAIN. PT WAS SICK DIARRHEA FOR ONE WEEK AND NOW HAS NOT HAD A BOWEL MOVEMENT IN OVER A WEEK PER HER DAUGHTER. PT HAS BEEN UNDER HOME HEALTH AND WAS ON LEVAQUIN FOR A UTI. NURSE REPORTS INCREASED WEAKNESS AND PT NOT WORKING WITH PT IN THE HOME. 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 PT ADMITTED FOR EVALUATION AND TREATMENT OF ACUTE ILLNESS Past Medical History Past Medical History: Arthritis, Asthma, Diabetes, Dyslipidemia, GERD, Hypertension and Hypothyroidism Past Surgical History Surgical History: Other Family History Family Medical History: Cancer Medications Home Medications: Home Medications Medication Instructions Recorded Confirmed Type hydrocodone 10 mg-acetaminophen 1 tab PO TID PRN 02/02/24 06/06/24 History 325 mg tablet levothyroxine 50 mcg tablet 50 mcg PO QAM 02/02/24 06/06/24 History (Synthroid) metoprolol succinate 50 mg 50 mg PO QDAY 02/02/24 06/06/24 History tablet,extended release 24 hr (Toprol XL) esomeprazole magnesium 40 mg 40 mg PO QDAY 04/30/24 06/06/24 History capsule,delayed release (Nexium) megestrol 40 mg tablet 40 mg PO QDAY 04/30/24 06/06/24 History apixaban 2.5 mg tablet (Eliquis) 2.5 mg PO BID 05/14/24 06/06/24 History diclofenac sodium 1 % topical gel 1 ea topical QID 05/14/24 06/06/24 History furosemide 40 mg tablet 40 mg PO PRN PRN 05/14/24 06/06/24 History diltiazem HCl 30 mg tablet 60 mg PO Q6H 06/06/24 06/06/24 History magnesium oxide 400 mg PO BID 06/06/24 06/06/24 History vancomycin 250 mg capsule 250 mg PO BID 06/06/24 06/06/24 History Allergies Allergies Allergy/AdvReac Type Severity Reaction Status Date / Time cefpodoxime Allergy Severe ANAPHALEXIS Verified 06/06/24 16:20 REACTION levofloxacin [Levaquin] Allergy Unknown Verified 06/06/24 16:20 nitrofurantoin Allergy Unknown Hives; Verified 06/06/24 16:20 Itching; Rash penicillin V Allergy Unknown Verified 06/06/24 16:20 lidocaine Allergy Verified 06/06/24 16:20 codeine AdvReac Mild RASH Verified 06/06/24 16:20 penicillin G AdvReac Mild RASH Verified 06/06/24 16:20 procaine AdvReac Mild itching Verified 06/06/24 16:20 Sulfa (Sulfonamide AdvReac Mild RASH Verified 06/06/24 16:20 Antibiotics) [SULFA] Review of Systems Constitutional: Weakness Eyes: No Symptoms Reported ENT: No Symptoms Reported Respiratory: Shortness of Breath Cardiovascular: No Symptoms Reported Gastrointestinal: Nausea, Abdominal Pain and Constipation Genitourinary: Dysuria Musculoskeletal: Back Pain Skin: No Symptoms Reported Neurological: Weakness Oriented: Normal Eyes: Normal Ear: Normal Nose: Normal Throat: Normal Respiratory: RLL Diminished and LLL Diminished Cardiovascular: Irregular Auscultation: Bowel Sounds: Decreased Palpation: Normal Tenderness: LUQ and LLQ Skin: Decreased Turgur Musculoskeletal: Back:Lumbar Psychiatric: Depression Mood Description: Depressed Affect: Depressed Speech Pattern: Clear and Appropriate Assessment/Plan (1) Colitis: Status: Acute Plan: ADMIT, IV HYDRATION IV ATBX, PAIN CONTROL BS CONTROL, STOOL STUDIES ABD SERIES VERIFY HOME MEDICATION AND CONTINUE (2) Abdominal pain: Status: Acute (3) Atrial fibrillation: Qualifiers: Atrial fibrillation type: unspecified Qualified Code(s): I48.91 - Unspecified atrial fibrillation Status: Chronic (4) Benign essential hypertension: Status: None (5) Acute UTI: Status: Acute (6) Weakness: Status: Acute
[2024-07-25 20:26] LABS: BASOPHILS # (AUTO) 0.1 X10^3/uL (0.0-0.1); EOSINOPHILS # (AUTO) 0.1 x10^3/uL (0.0-0.2); EOSINOPHILS % (AUTO) 0.8 % (0.9-2.9); HEMOGLOBIN 13.4 g/dL (12.0-16.0); LYMPHOCYTES # (AUTO) 1.9 X10^3/uL (1.3-2.9); LYMPHOCYTES % (AUTO) 23.2 % (21.0-51.0); MEAN CORPUSCULAR HEMOGLOBIN 30.8 pg (27.0-34.0); MEAN CORPUSCULAR HGB CONC 34.3 g/dL (33.0-35.0); MEAN CORPUSCULAR VOLUME 89.8 fL (80.0-100.0); MONOCYTES # (AUTO) 0.5 x10^3/uL (0.3-0.8); MONOCYTES % (AUTO) 6.5 % (0.0-13.0); NEUTROPHILS # (AUTO) 5.7 x10^3/uL (2.2-4.8); NEUTROPHILS % (AUTO) 68.5 % (42.0-75.0); PLATELET COUNT 274 X10^3/uL (150.0-450.0); RED BLOOD COUNT 4.35 X10^6/uL (3.5-5.4); RED CELL DISTRIBUTION WIDTH 16.7 % (11.6-16.5); WHITE BLOOD COUNT 8.3 X10^3/uL (3.6-10.0)
[2024-07-25] MEDS: FLAGYL IV PREMIX 500 MG BAG 500 MG/100 ML BAG IV SCH (20:30)
[2024-07-25] MEDS: NS 1,000 ML IV 1,000 ML IV SCH (20:31)
[2024-07-25 20:42] LABS: ALANINE AMINOTRANSFERASE 20 Units/L (12-78); ALBUMIN 3.5 g/dL (3.4-5.0); ALKALINE PHOSPHATASE 78 Units/L (46-116); ASPARTATE AMINO TRANSFERASE 15 Units/L (15-37); BLOOD UREA NITROGEN 18 mg/dL (7-18); CALCIUM 8.9 mg/dL (8.5-10.1); CARBON DIOXIDE 25.3 mmol/L (21-32); CHLORIDE 100 mmol/L (98-107); COR NA(FOR HYPERGLY) 138 mmol/L (136-145); CREATININE 1.16 mg/dL (0.55-1.02); GLUCOSE 145 mg/dL (65-99); MAGNESIUM 1.9 mg/dL (2.0-2.9); POTASSIUM 3.8 mmol/L (3.5-5.1); SODIUM 137 mmol/L (136-145); TOTAL PROTEIN 7.1 g/dL (6.4-8.2); eGFR NON BLACK RACES 47 (>60)
[2024-07-25] MEDS: SNACK - Diabetic Appropriate PO SCH (20:55)
[2024-07-25 22:28] VITALS: BMI 29.9
[2024-07-26 05:36] LABS: BASOPHILS # (AUTO) 0.1 X10^3/uL (0.0-0.1); BASOPHILS % (AUTO) 0.7 % (0.2-1.0); EOSINOPHILS # (AUTO) 0.1 x10^3/uL (0.0-0.2); EOSINOPHILS % (AUTO) 1.1 % (0.9-2.9); HEMATOCRIT 37.1 % (36.0-47.0); HEMOGLOBIN 12.5 g/dL (12.0-16.0); LYMPHOCYTES # (AUTO) 1.7 X10^3/uL (1.3-2.9); LYMPHOCYTES % (AUTO) 21.5 % (21.0-51.0); MEAN CORPUSCULAR HEMOGLOBIN 30.1 pg (27.0-34.0); MEAN CORPUSCULAR HGB CONC 33.6 g/dL (33.0-35.0); MEAN CORPUSCULAR VOLUME 89.7 fL (80.0-100.0); MEAN PLATELET VOLUME 9.5 fL (7.4-11.0); MONOCYTES # (AUTO) 0.6 x10^3/uL (0.3-0.8); MONOCYTES % (AUTO) 7.9 % (0.0-13.0); NEUTROPHILS # (AUTO) 5.6 x10^3/uL (2.2-4.8); NEUTROPHILS % (AUTO) 68.8 % (42.0-75.0); PLATELET COUNT 248 X10^3/uL (150.0-450.0); RED BLOOD COUNT 4.14 X10^6/uL (3.5-5.4); RED CELL DISTRIBUTION WIDTH 16.6 % (11.6-16.5); WHITE BLOOD COUNT 8.1 X10^3/uL (3.6-10.0)
[2024-07-26 05:45] LABS: ALANINE AMINOTRANSFERASE 18 Units/L (12-78); ALBUMIN 3.2 g/dL (3.4-5.0); ALKALINE PHOSPHATASE 69 Units/L (46-116); ASPARTATE AMINO TRANSFERASE 13 Units/L (15-37); BLOOD UREA NITROGEN 16 mg/dL (7-18); CALCIUM 8.8 mg/dL (8.5-10.1); CARBON DIOXIDE 25.5 mmol/L (21-32); CHLORIDE 104 mmol/L (98-107); COR CA(FOR HYPOALB) 9.4 mg/dL (8.5-10.1); COR NA(FOR HYPERGLY) 139 mmol/L (136-145); CREATININE 1.07 mg/dL (0.55-1.02); GLUCOSE 111 mg/dL (65-99); POTASSIUM 3.9 mmol/L (3.5-5.1); SODIUM 139 mmol/L (136-145); TOTAL PROTEIN 6.3 g/dL (6.4-8.2); eGFR NON BLACK RACES 52 (>60)
--- NOTE | 2024-07-26 06:16 | RAD ---
EXAM: ACUTE ABDOMEN SERI ES HISTORY: ABD PAIN; COMPARISON: 06/11/2024 FINDINGS: The cardiomediastinal silhouette is normal in size. Scattered left-sided airspace opacities. No pneu mothorax.No acute osseous abnormality in the thorax. Evaluation of the abdomen demonstrates a nonobstructive bowel gas pattern. Moderate colonic stool. no evidence of pneumoperitoneum. No pathologic soft tissue calcification. No acute osseous abnormality in the abdomen. IMPRESSION: 1. Left-sided airspace opacities which may be due to chronic changes or pneumonia. 2. Moderate colonic stool with possible constipation. THIS IS AN ELECTRONICALLY VERIFIED FINAL REPORT 07/26/2024 6:11 AM - Electronically signed by Wyatt Pruitt MD
[2024-07-26] MEDS: PROTONIX INJ 40 MG VIAL IVP SCH (08:18)
[2024-07-26] MEDS ORDERED: MILK OF MAGNESIA PO PRN (09:45)
[2024-07-26] MEDS: DULCOLAX SUPPOSITORY 10 MG RECTAL SCH (10:03)
[2024-07-26] MEDS: ROCEPHIN VIAL 1 GRAM 1 G in NS 100 ML IV 100 ML IV SCH (13:30)
[2024-07-26] MEDS: TOPROL XL PO SCH (13:30)
[2024-07-26] MEDS: CARDIZEM TAB 30 MG PLAIN PO SCH (13:30)
[2024-07-26 13:32] LABS: CRYPTOSPORIDIUM PARVUM ANTIGEN NEGATIVE (NEGATIVE); GIARDIA LAMBLIA ANTIGEN NEGATIVE (NEGATIVE)
[2024-07-26] MEDS: DUONEB 0.5 MG/3 MG (3 mL) NEB SCH (17:17)
[2024-07-26] MEDS ORDERED: PULMICORT NEB TX 0.5 MG NEB ONE (18:54)
[2024-07-26] MEDS: PULMICORT NEB TX 0.5 MG NEB SCH (20:00)
[2024-07-26] MEDS: COLACE CAP 100 MG PO SCH (21:30)
[2024-07-26] MEDS: CORDARONE TAB 200 MG PO SCH (21:30)
[2024-07-26] MEDS: ELIQUIS PO SCH (21:30)
[2024-07-26 23:25] VITALS: RESP 18
[2024-07-27 06:26] LABS: BASOPHILS # (AUTO) 0.1 X10^3/uL (0.0-0.1); EOSINOPHILS # (AUTO) 0.1 x10^3/uL (0.0-0.2); EOSINOPHILS % (AUTO) 0.8 % (0.9-2.9); HEMATOCRIT 33.7 % (36.0-47.0); HEMOGLOBIN 11.6 g/dL (12.0-16.0); LYMPHOCYTES # (AUTO) 1.8 X10^3/uL (1.3-2.9); LYMPHOCYTES % (AUTO) 22.2 % (21.0-51.0); MEAN CORPUSCULAR HGB CONC 34.5 g/dL (33.0-35.0); MEAN CORPUSCULAR VOLUME 89.7 fL (80.0-100.0); MEAN PLATELET VOLUME 9.8 fL (7.4-11.0); MONOCYTES # (AUTO) 0.8 x10^3/uL (0.3-0.8); MONOCYTES % (AUTO) 9.6 % (0.0-13.0); NEUTROPHILS # (AUTO) 5.3 x10^3/uL (2.2-4.8); NEUTROPHILS % (AUTO) 66.4 % (42.0-75.0); PLATELET COUNT 238 X10^3/uL (150.0-450.0); RED BLOOD COUNT 3.76 X10^6/uL (3.5-5.4); RED CELL DISTRIBUTION WIDTH 16.6 % (11.6-16.5)
[2024-07-27 06:37] LABS: ALANINE AMINOTRANSFERASE 16 Units/L (12-78); ALBUMIN 3.1 g/dL (3.4-5.0); ALKALINE PHOSPHATASE 66 Units/L (46-116); ASPARTATE AMINO TRANSFERASE 11 Units/L (15-37); BLOOD UREA NITROGEN 13 mg/dL (7-18); CALCIUM 8.5 mg/dL (8.5-10.1); CARBON DIOXIDE 21.4 mmol/L (21-32); CHLORIDE 106 mmol/L (98-107); COR CA(FOR HYPOALB) 9.2 mg/dL (8.5-10.1); CREATININE 0.94 mg/dL (0.55-1.02); GLUCOSE 110 mg/dL (65-99); MAGNESIUM 1.8 mg/dL (2.0-2.9); POTASSIUM 3.5 mmol/L (3.5-5.1); SODIUM 139 mmol/L (136-145); eGFR NON BLACK RACES > 60 (>60)
[2024-07-27 08:53] VITALS: BP 115/60; PULSE 91; TEMP 97.2; O2SAT 96
[2024-07-27] MEDS: SYNTHROID 50 mcg TAB PO SCH (09:41)
[2024-07-27] MEDS: ARICEPT TAB 5 MG PO SCH (09:42)
== END 2024-07-27 10:35 | disposition home health service (06) ==
LOC: MED/SURG
PROVIDERS: ADMIT Internal Medicine; ATTEND Internal Medicine
DX: R06.89 Other abnormalities of breathing; K52.89 Other specified noninfective gastroenteritis and colitis; K59.09 Other constipation; J44.9 Chronic obstructive pulmonary disease, unspecified; R79.89 Other specified abnormal findings of blood chemistry; I10 Essential (primary) hypertension; N39.0 Urinary tract infection, site not specified; K92.1 Melena; R53.1 Weakness; J18.8 Other pneumonia, unspecified organism; E83.42 Hypomagnesemia; R26.89 Other abnormalities of gait and mobility; E11.65 Type 2 diabetes mellitus with hyperglycemia; Z79.01 Long term (current) use of anticoagulants; I48.91 Unspecified atrial fibrillation

== ENCOUNTER 2024-08-14 12:54 | Observation (INO) ==
--- NOTE | 2024-08-14 13:17 | DR.NAUSEAF ---
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 She lives with her daughter and thinks she might have been dehydrated again. Currently not on antibiotics. Complaints Chief Complaint Doctors Comments: Versus she appears dehydrated, persistent diarrhea for the past week Chief Complaint:: pt's ramónugher states " the home health nurses went to see pt and pt 02 sat was 90% , when speaking to pt she states " i have been vomiting but, not throwing up' pt given zofran 4mg iv in route. COVID-19 Coronavirus risk:travel/contact w/high risk person: No Has patient experienced Coronavirus symptoms: Yes Reviewed Nurses Notes Reviewed: Yes Source History Provided: Patient and EMS Mode of Arrival Mode of Arrival: Stretcher Timing Onset of Chief Complaint: 08/14/24 PMH PMH Past Medical History: Yes Past Medical History: Arthritis, Asthma, Diabetes, Dyslipidemia, GERD, Hypertension and Hypothyroidism Past Surgical History: Yes Surgical History: Other Family History History of Family Medical Conditions: Yes Family Medical History: Cancer Social History Does patient currently use any type of tobacco product: No Have you used tobacco products in the last 12 months: No Type of Tobacco Use: None Does any household member use tobacco: No Alcohol Use: None Do you use any recreational Drugs:: No Lives With: Family Lives Where: Home Travel Risk Coronavirus risk:travel/contact w/high risk person: No Infectious screening In the last 2 months have you had wt loss of >10#?: NO Have you had fever, night sweats or hemotysis?: No Have you traveled outside the country in the last 6 months?: No Isolation: Standard ROS Review of Systems Constitutional: Malaise, Weakness, Fatigue and Loss of Appetite Eyes: No Symptoms Reported ENTM: No Symptoms Reported Respiratoy: No Symptoms Reported; negative Hacking Cough or Short of Breath Cardiovascular: No Symptoms Reported; negative Edema or Palpitations Gastrointestinal/Abdominal: Diarrhea, Nausea and Vomiting Genitourinary: Frequency; negative Discharge Neurological: Depressed and Weakness Musculoskeletal: No Symptoms Reported Integumentary: No Symptoms Reported Hematologic/Lymphatic: No Symptoms Reported Endocrine: Decreased Appetite Psychiatric: Depression All Other Systems: Reviewed and Negative PE Vital Signs Vitals: Vital Signs Temperature 98.1 F Pulse Rate 83 Pulse Rate 80 Pulse Rate 84 Pulse Rate 85 Pulse Rate 84 Pulse Rate 86 Pulse Rate 86 Pulse Rate 89 Respiratory Rate 18 Blood Pressure 131/57 Blood Pressure 134/73 Blood Pressure 134/73 O2 Sat by Pulse Oximetry 99 O2 Sat by Pulse Oximetry 100 O2 Sat by Pulse Oximetry 97 O2 Sat by Pulse Oximetry 100 O2 Sat by Pulse Oximetry 95 O2 Sat by Pulse Oximetry 97 O2 Sat by Pulse Oximetry 95 O2 Sat by Pulse Oximetry 97 General General Appearance: Alert and In No Apparent Distress; negative In Distress Head Head Exam: Normal Inspection, Atraumatic and Normocephalic Eyes Eye exam: Normal Appearance and PERRL; negative Scleral Icterus ENT ENT Exam: Normal Exam, Normal Oropharynx and Mucous Membranes Moist Neck Neck Exam: Normal Inspection and Full ROM; negative Tenderness Chest Chest Inspection: Normal Inspection and Symmetric Chest Wall Rise Respiratory Respiratory Exam: Normal Lung Sounds Bilat; negative Accessory Muscle Use or Chest Wall Tenderness Abdominal Exam Abdominal Exam: Normal Inspection and Normal Bowel Sounds; negative Distention or Tenderness MDM Differential Diagnosis Differential Diagnosis: Considerations may Include:: Bowel Obstruction, Food Poisoning, Gastritis, Gastroenteritis, Inflammatory BD, Pancreatitis and Urinary Tract Infection COURSE Treatment Treatment: Patient is given IV fluids while in the ER. She is able to drink Gatorade without any vomiting. Collection of urine was difficult and she refused catheterization. CT scan of the abdomen pelvis showed copious stools in the colon with a high impaction, will try lactulose, high-fiber diet. CBC and CMP were within her baseline, unremarkable Reevaluation 1st: Improved Education/Counseling Education/Counseling: Patient and Counseling Educated On: Treatment and Diagnosis ROR Labs Reviewed Laboratory Results Reviewed?: Yes 08/14/24 14:40 08/14/24 14:40 Laboratory: WBC 7.8 X10^3/uL (3.6-10.0) 08/14/24 14:40 RBC 4.04 X10^6/uL (3.5-5.4) 08/14/24 14:40 Hgb 12.3 g/dL (12.0-16.0) 08/14/24 14:40 Hct 36.6 % (36.0-47.0) 08/14/24 14:40 MCV 90.6 fL (80.0-100.0) 08/14/24 14:40 MCH 30.6 pg (27.0-34.0) 08/14/24 14:40 MCHC 33.7 g/dL (33.0-35.0) 08/14/24 14:40 RDW 16.4 % (11.6-16.5) 08/14/24 14:40 Plt Count 276 X10^3/uL (150.0-450.0) 08/14/24 14:40 MPV 9.0 fL (7.4-11.0) 08/14/24 14:40 Neut % (Auto) 70.3 % (42.0-75.0) 08/14/24 14:40 Lymph % (Auto) 21.6 % (21.0-51.0) 08/14/24 14:40 [place] % (Auto) 6.3 % (0.0-13.0) 08/14/24 14:40 Eos % (Auto) 1.0 % (0.9-2.9) 08/14/24 14:40 Baso % (Auto) 0.8 % (0.2-1.0) 08/14/24 14:40 Neut # (Auto) 5.5 x10^3/uL (2.2-4.8) H 08/14/24 14:40 Lymph # (Auto) 1.7 X10^3/uL (1.3-2.9) 08/14/24 14:40 [place] # (Auto) 0.5 x10^3/uL (0.3-0.8) 08/14/24 14:40 Eos # (Auto) 0.1 x10^3/uL (0.0-0.2) 08/14/24 14:40 Baso # (Auto) 0.1 X10^3/uL (0.0-0.1) 08/14/24 14:40 Absolute Nucleated RBC 0.0 /100WBC 08/14/24 14:40 Sodium 140 mmol/L (136-145) 08/14/24 14:40 Corrected Sodium 140 mmol/L (136-145) 08/14/24 14:40 Potassium 3.7 mmol/L (3.5-5.1) 08/14/24 14:40 Chloride 103 mmol/L (98-107) 08/14/24 14:40 Carbon Dioxide 25.3 mmol/L (21-32) 08/14/24 14:40 BUN 13 mg/dL (7-18) 08/14/24 14:40 Creatinine 1.08 mg/dL (0.55-1.02) H 08/14/24 14:40 Est GFR (MDRD) Af Amer > 60 (>60) 08/14/24 14:40 Est GFR (MDRD) Non-Af 51 (>60) L 08/14/24 14:40 Glucose 116 mg/dL (65-99) H 08/14/24 14:40 Calcium 9.1 mg/dL (8.5-10.1) 08/14/24 14:40 Corrected Calcium 9.7 mg/dL (8.5-10.1) 08/14/24 14:40 Total Bilirubin 0.30 mg/dL (0.2-1.0) 08/14/24 14:40 AST 11 Units/L (15-37) L 08/14/24 14:40 ALT 12 Units/L (12-78) 08/14/24 14:40 Alkaline Phosphatase 72 Units/L (46-116) 08/14/24 14:40 Total Protein 6.6 g/dL (6.4-8.2) 08/14/24 14:40 Albumin 3.3 g/dL (3.4-5.0) L 08/14/24 14:40 Globulin 3.3 g/dL (2.5-4.5) 08/14/24 14:40 Albumin/Globulin Ratio 1.0 Ratio (1.1-2.1) L 08/14/24 14:40 Other Results Comments: CT scan of the abdomen pelvis without contrast showed no acute intra-abdominal findings, no evidence of bowel obstruction. Copious stools in the colon is noted XRAY X-ray Results: Portable chest x-ray is unremarkable Opioid Opioid Risk Tool Age (Singh box if 16-45): No History of Preadolescent Sexual Abuse: No Total: 0 Total Score Risk Category: Low Risk Copyright: [facility] predicting aberrant behaviors Management Prescription drug monitoring program results: PDMP reviewed and no concerns identified Discharge Plan Diagnosis Discharge Problem: Constipation by delayed colonic transit Hospital Course Hospital Course: Patient was given IV fluids with improvement in her vital signs, blood pressure. CT scan of the abdomen pelvis showed no signs of inflammation or bowel obstruction but has copious stools in the colon. Discharge Plan Patient Disposition: 01 HOME, SELF-CARE Assessment: Constipation with delayed colonic transit Chronic debility Condition: Stable Prescription drug monitoring program results: PDMP reviewed and no concerns identified Prescriptions: New lactulose [Enulose] 10 gram/15 mL solution 20 g PO TID 3 Days Qty: 270 0RF No Action Trelegy Ellipta 100-62.5-25 mcg blister with device 1 inh inhalation QDAY Qty: 60 3RF amiodarone [Pacerone] 200 mg tablet 200 mg PO BID Qty: 60 0RF metoprolol succinate [Toprol XL] 50 mg tablet extended release 24 hr 50 mg PO QDAY levothyroxine [Synthroid] 50 mcg tablet 50 mcg PO QAM donepezil 5 mg tablet 5 mg PO QDAY Rybelsus 7 mg tablet 7 mg PO QDAY magnesium oxide 400 mg (241.3 mg magnesium) tablet 400 mg PO BID Qty: 60 0RF esomeprazole magnesium [Nexium] 40 mg capsule,delayed release(DR/EC) 40 mg PO QDAY Eliquis 2.5 mg Tablet 2.5 mg PO BID furosemide 40 mg Tablet 40 mg PO PRN PRN diltiazem HCl 30 mg tablet 60 mg PO Q6H Patient Comments: [NO ORIGINAL SIG] Health Concerns: Post Hospitalization: new medications and changes needed to prevent readmission or further decline. Pt educated and given instructions on all concerns. Plan of Treatment: Continue with present treatment and follow up plan. Pt is to keep follow up appointment as instructed and take medications as ordered. Orders to Discharge Patient Discharge Orders: Discharge (Routine); Ordered 08/14/24 Ordered By: Kulwant Huggins Follow ups/Referrals Follow ups/Referrals: BALAJI RECIO [Primary Care Provider] - 3 days Instructions Instructions: Managing Neurogenic Bowel, Constipation, Adult, [id number] Stand Alone Forms: Find Help Web Site, Post Hospital Follow Up Care
--- NOTE | 2024-08-14 14:20 | CT ---
EXAM:CT ABDOMEN AND PELVIS WITHOUT CONTRASTHISTORY:dysuria, recurrent UTI, stone;COMPARISON:Chest x-ray from same date; CT abdomen/pelvis dated 06/07/2024.TECHNIQUE:Axial CT images were obtained through the abdomen and pelvis without contrast. Coronal and sagittal reformatted images were included.All CT scans at this facility use dose modulation, iterative reconstruction, and/or weight based dosing when appropriate to reduce radiation dose to as low as reasonably achievable.FINDINGS:Please note that without the use of intravenous contrast, evaluation of organ parenchyma is limited.No hydronephrosis or perinephric stranding. No evidence of urinary calculi. Noninflamed urinary bladder.Mild atelectasis in the lung bases.Stable small simple fluid density cyst in the left hepatic lobe. Unremarkable gallbladder. No biliary dilatation. Spleen, pancreas, and adrenals are unremarkable. Moderate aortoiliac atherosclerotic calcifications without aneurysm.No abnormally distended or focally thickened bowel loops. Normal right lower quadrant appendix. Mild colonic stool burden. No free peritoneal air or fluid. Uterus and adnexa are within normal limits. No free pelvic fluid.No acute osseous findings. Moderate lumbar spondylosis. Small fat containing umbilical hernia.IMPRESSION:No acute findings in the abdomen or pelvis. No hydronephrosis or evidence of urinary calculi.THIS IS AN ELECTRONICALLY VERIFIED FINAL REPORT08/14/2024 2:12 PM - Electronically signed by Williams Barney MD
--- NOTE | 2024-08-14 14:43 | RAD ---
EXAM: CHEST, 1 VIEW HISTORY: dehydration, abdl pain; COMPARISON: Prior study or studies were utilized for comparison during interpretation with the most relevant kanu ed 06/11/2024 TECHNIQUE: CHEST, 1 VIEW FINDINGS: Chest: Lines and tubes: None Mediastinum: Cardiac and mediastinal shadow is within normal limits for size and contour. Pulmonary vessels: Pulmonary vasculature is prominent. Lung greene: No suspicious airspace opacity. Pleura: No effusion. No pneumothorax. Bones and soft tissues: No acute osseous or soft tissue abnormality. IMPRESSION: 1. No acute cardiopulmonary abnormality THIS IS AN ELECTRONICALLY VERIFIED FINAL REPORT 08/14/2024 2:39 PM - Electronically signed by Facundo Lopez MD
[2024-08-14 14:54] LABS: BASOPHILS # (AUTO) 0.1 X10^3/uL (0.0-0.1); BASOPHILS % (AUTO) 0.8 % (0.2-1.0); EOSINOPHILS # (AUTO) 0.1 x10^3/uL (0.0-0.2); HEMATOCRIT 36.6 % (36.0-47.0); HEMOGLOBIN 12.3 g/dL (12.0-16.0); LYMPHOCYTES # (AUTO) 1.7 X10^3/uL (1.3-2.9); LYMPHOCYTES % (AUTO) 21.6 % (21.0-51.0); MEAN CORPUSCULAR HEMOGLOBIN 30.6 pg (27.0-34.0); MEAN CORPUSCULAR HGB CONC 33.7 g/dL (33.0-35.0); MEAN CORPUSCULAR VOLUME 90.6 fL (80.0-100.0); MONOCYTES # (AUTO) 0.5 x10^3/uL (0.3-0.8); MONOCYTES % (AUTO) 6.3 % (0.0-13.0); NEUTROPHILS # (AUTO) 5.5 x10^3/uL (2.2-4.8); NEUTROPHILS % (AUTO) 70.3 % (42.0-75.0); PLATELET COUNT 276 X10^3/uL (150.0-450.0); RED BLOOD COUNT 4.04 X10^6/uL (3.5-5.4); RED CELL DISTRIBUTION WIDTH 16.4 % (11.6-16.5); WHITE BLOOD COUNT 7.8 X10^3/uL (3.6-10.0)
[2024-08-14 15:09] LABS: ALANINE AMINOTRANSFERASE 12 Units/L (12-78); ALBUMIN 3.3 g/dL (3.4-5.0); ALKALINE PHOSPHATASE 72 Units/L (46-116); ASPARTATE AMINO TRANSFERASE 11 Units/L (15-37); BLOOD UREA NITROGEN 13 mg/dL (7-18); CALCIUM 9.1 mg/dL (8.5-10.1); CARBON DIOXIDE 25.3 mmol/L (21-32); CHLORIDE 103 mmol/L (98-107); COR CA(FOR HYPOALB) 9.7 mg/dL (8.5-10.1); COR NA(FOR HYPERGLY) 140 mmol/L (136-145); CREATININE 1.08 mg/dL (0.55-1.02); GLUCOSE 116 mg/dL (65-99); POTASSIUM 3.7 mmol/L (3.5-5.1); SODIUM 140 mmol/L (136-145); TOTAL PROTEIN 6.6 g/dL (6.4-8.2); eGFR NON BLACK RACES 51 (>60)
--- NOTE | 2024-08-14 16:38 | DR.NAUSEAF ---
HPI Time Seen Time Seen by Provider: 08/14/24 13:16 Primary Care Physician Primary Care Physician: Bebo Mcbride machine container washer HPI Comment HPI Comment: 4-year-old female with history of diabetes and recent colitis was brought in by EMS for persistent diarrhea for the past week. She lives with her daughter and thinks she might have been dehydrated again. Currently not on antibiotics. Complaints Chief Complaint Doctors Comments: Versus she appears dehydrated, persistent diarrhea for the past week Chief Complaint:: pt's keerthier states " the home health nurses went to see pt and pt 02 sat was 90% , when speaking to pt she states " i have been vomiting but, not throwing up' pt given zofran 4mg iv in route. COVID-19 Coronavirus risk:travel/contact w/high risk person: No Has patient experienced Coronavirus symptoms: Yes Reviewed Nurses Notes Reviewed: Yes Source History Provided: Patient and EMS Mode of Arrival Mode of Arrival: Stretcher Timing Onset of Chief Complaint: 08/14/24 PMH PMH Past Medical History: Yes Past Medical History: Arthritis, Asthma, Diabetes, Dyslipidemia, GERD, Hypertension and Hypothyroidism Past Surgical History: Yes Surgical History: Other Family History History of Family Medical Conditions: Yes Family Medical History: Cancer Social History Does patient currently use any type of tobacco product: No Have you used tobacco products in the last 12 months: No Type of Tobacco Use: None Does any household member use tobacco: No Alcohol Use: None Do you use any recreational Drugs:: No Lives With: Family Lives Where: Home Travel Risk Coronavirus risk:travel/contact w/high risk person: No Has patient experienced Coronavirus symptoms: Yes Coronavirus symptoms experienced: Fever Infectious screening In the last 2 months have you had wt loss of >10#?: NO Have you had fever, night sweats or hemotysis?: No Have you traveled outside the country in the last 6 months?: No Isolation: Standard PE Vital Signs Vitals: Vital Signs Temperature 98.1 F Pulse Rate 83 Pulse Rate 80 Pulse Rate 84 Pulse Rate 85 Pulse Rate 84 Pulse Rate 86 Pulse Rate 86 Pulse Rate 89 Respiratory Rate 18 Blood Pressure 131/57 Blood Pressure 134/73 Blood Pressure 134/73 O2 Sat by Pulse Oximetry 99 O2 Sat by Pulse Oximetry 100 O2 Sat by Pulse Oximetry 97 O2 Sat by Pulse Oximetry 100 O2 Sat by Pulse Oximetry 95 O2 Sat by Pulse Oximetry 97 O2 Sat by Pulse Oximetry 95 O2 Sat by Pulse Oximetry 97 COURSE Treatment Treatment: Patient was given IV fluids. Discussed stool culture with the lab and she is positive for C. difficile Reevaluation 1st: Improved Consultation Called: 16:30 Call Returned: 16:32 Consultation Comments: Discussed with Dr. Verde, her PCP and also the hospitalist and agrees on admitting this patient to this hospital. Education/Counseling Education/Counseling: Patient and Family Educated On: Treatment, Diagnosis, Prognosis and Needs for Follow Up ROR Labs Reviewed Laboratory Results Reviewed?: Yes 08/14/24 14:40 08/14/24 14:40 Laboratory: WBC 7.8 X10^3/uL (3.6-10.0) 08/14/24 14:40 RBC 4.04 X10^6/uL (3.5-5.4) 08/14/24 14:40 Hgb 12.3 g/dL (12.0-16.0) 08/14/24 14:40 Hct 36.6 % (36.0-47.0) 08/14/24 14:40 MCV 90.6 fL (80.0-100.0) 08/14/24 14:40 MCH 30.6 pg (27.0-34.0) 08/14/24 14:40 MCHC 33.7 g/dL (33.0-35.0) 08/14/24 14:40 RDW 16.4 % (11.6-16.5) 08/14/24 14:40 Plt Count 276 X10^3/uL (150.0-450.0) 08/14/24 14:40 MPV 9.0 fL (7.4-11.0) 08/14/24 14:40 Neut % (Auto) 70.3 % (42.0-75.0) 08/14/24 14:40 Lymph % (Auto) 21.6 % (21.0-51.0) 08/14/24 14:40 [place] % (Auto) 6.3 % (0.0-13.0) 08/14/24 14:40 Eos % (Auto) 1.0 % (0.9-2.9) 08/14/24 14:40 Baso % (Auto) 0.8 % (0.2-1.0) 08/14/24 14:40 Neut # (Auto) 5.5 x10^3/uL (2.2-4.8) H 08/14/24 14:40 Lymph # (Auto) 1.7 X10^3/uL (1.3-2.9) 08/14/24 14:40 [place] # (Auto) 0.5 x10^3/uL (0.3-0.8) 08/14/24 14:40 Eos # (Auto) 0.1 x10^3/uL (0.0-0.2) 08/14/24 14:40 Baso # (Auto) 0.1 X10^3/uL (0.0-0.1) 08/14/24 14:40 Absolute Nucleated RBC 0.0 /100WBC 08/14/24 14:40 Sodium 140 mmol/L (136-145) 08/14/24 14:40 Corrected Sodium 140 mmol/L (136-145) 08/14/24 14:40 Potassium 3.7 mmol/L (3.5-5.1) 08/14/24 14:40 Chloride 103 mmol/L (98-107) 08/14/24 14:40 Carbon Dioxide 25.3 mmol/L (21-32) 08/14/24 14:40 BUN 13 mg/dL (7-18) 08/14/24 14:40 Creatinine 1.08 mg/dL (0.55-1.02) H 08/14/24 14:40 Est GFR (MDRD) Af Amer > 60 (>60) 08/14/24 14:40 Est GFR (MDRD) Non-Af 51 (>60) L 08/14/24 14:40 Glucose 116 mg/dL (65-99) H 08/14/24 14:40 Calcium 9.1 mg/dL (8.5-10.1) 08/14/24 14:40 Corrected Calcium 9.7 mg/dL (8.5-10.1) 08/14/24 14:40 Total Bilirubin 0.30 mg/dL (0.2-1.0) 08/14/24 14:40 AST 11 Units/L (15-37) L 08/14/24 14:40 ALT 12 Units/L (12-78) 08/14/24 14:40 Alkaline Phosphatase 72 Units/L (46-116) 08/14/24 14:40 Total Protein 6.6 g/dL (6.4-8.2) 08/14/24 14:40 Albumin 3.3 g/dL (3.4-5.0) L 08/14/24 14:40 Globulin 3.3 g/dL (2.5-4.5) 08/14/24 14:40 Albumin/Globulin Ratio 1.0 Ratio (1.1-2.1) L 08/14/24 14:40 Other Results Comments: CT scan of the abdomen pelvis without contrast showed no acute intra-abdominal findings, no evidence of bowel obstruction. Copious stools in the colon is noted XRAY X-ray Results: Portable chest x-ray is unremarkable Opioid Opioid Risk Tool Age (Singh box if 16-45): No History of Preadolescent Sexual Abuse: No Total: 0 Total Score Risk Category: Low Risk Copyright: [facility] predicting aberrant behaviors Discharge Plan Diagnosis Discharge Problem: C. difficile colitis Diarrhea Qualifiers: Diarrhea type: infectious Qualified Code(s): A09 - Infectious gastroenteritis and colitis, unspecified Hospital Course Hospital Course: Patient was given IV fluids with improvement in her vital signs, blood pressure. CT scan of the abdomen pelvis showed no signs of inflammation or bowel obstruction but has copious stools in the colon. Discharge Plan Patient Disposition: 01 HOME, SELF-CARE Assessment: Constipation with delayed colonic transit Chronic debility Condition: Stable Prescription drug monitoring program results: PDMP reviewed and no concerns identified Prescriptions: New lactulose [Enulose] 10 gram/15 mL solution 20 g PO TID 3 Days Qty: 270 0RF No Action Trelegy Ellipta 100-62.5-25 mcg blister with device 1 inh inhalation QDAY Qty: 60 3RF amiodarone [Pacerone] 200 mg tablet 200 mg PO BID Qty: 60 0RF metoprolol succinate [Toprol XL] 50 mg tablet extended release 24 hr 50 mg PO QDAY levothyroxine [Synthroid] 50 mcg tablet 50 mcg PO QAM donepezil 5 mg tablet 5 mg PO QDAY Rybelsus 7 mg tablet 7 mg PO QDAY magnesium oxide 400 mg (241.3 mg magnesium) tablet 400 mg PO BID Qty: 60 0RF esomeprazole magnesium [Nexium] 40 mg capsule,delayed release(DR/EC) 40 mg PO QDAY Eliquis 2.5 mg Tablet 2.5 mg PO BID furosemide 40 mg Tablet 40 mg PO PRN PRN diltiazem HCl 30 mg tablet 60 mg PO Q6H Patient Comments: [NO ORIGINAL SIG] Health Concerns: Post Hospitalization: new medications and changes needed to prevent readmission or further decline. Pt educated and given instructions on all concerns. Plan of Treatment: Continue with present treatment and follow up plan. Pt is to keep follow up appointment as instructed and take medications as ordered. Orders to Discharge Patient Discharge Orders: Discharge (Routine); Ordered 08/14/24 Ordered By: Kulwant Huggins Follow ups/Referrals Follow ups/Referrals: BALAJI RECIO [Primary Care Provider] - 3 days Instructions Instructions: Managing Neurogenic Bowel, Constipation, Adult, Cuda-fu-Brmm Stand Alone Forms: Find Help Web Site, Post Hospital Follow Up Care ADDITIONAL NOTES Additional Notes Additional Notes: Patient will be admitted for the hospitalist. Discussed with Dr. Verde.
--- NOTE | 2024-08-14 16:43 | DR.NAUSEAF ---
HPI Time Seen Time Seen by Provider: 08/14/24 13:16 Primary Care Physician Primary Care Physician: Bebo Mcbride senior database programmer Complaints Chief Complaint:: pt's daugher states " the home health nurses went to see pt and pt 02 sat was 90% , when speaking to pt she states " i have been vomiting but, not throwing up' pt given zofran 4mg iv in route. COVID-19 Coronavirus risk:travel/contact w/high risk person: No Has patient experienced Coronavirus symptoms: Yes Coronavirus symptoms experienced: Fever Source History Provided: Patient and EMS Mode of Arrival Mode of Arrival: Stretcher Timing Onset of Chief Complaint: 08/14/24 PMH PMH Past Medical History: Yes Past Medical History: Arthritis, Asthma, Diabetes, Dyslipidemia, GERD, Hypertension and Hypothyroidism Past Surgical History: Yes Surgical History: Other Family History History of Family Medical Conditions: Yes Family Medical History: Cancer Social History Does patient currently use any type of tobacco product: No Have you used tobacco products in the last 12 months: No Type of Tobacco Use: None Does any household member use tobacco: No Alcohol Use: None Do you use any recreational Drugs:: No Lives With: Family Lives Where: Home Travel Risk Coronavirus risk:travel/contact w/high risk person: No Has patient experienced Coronavirus symptoms: Yes Coronavirus symptoms experienced: Fever Infectious screening In the last 2 months have you had wt loss of >10#?: NO Have you had fever, night sweats or hemotysis?: No Have you traveled outside the country in the last 6 months?: No Isolation: Standard PE Vital Signs Vitals: Vital Signs Temperature 98.1 F Pulse Rate 83 Pulse Rate 80 Pulse Rate 84 Pulse Rate 85 Pulse Rate 84 Pulse Rate 86 Pulse Rate 86 Pulse Rate 89 Respiratory Rate 18 Blood Pressure 131/57 Blood Pressure 134/73 Blood Pressure 134/73 O2 Sat by Pulse Oximetry 99 O2 Sat by Pulse Oximetry 100 O2 Sat by Pulse Oximetry 97 O2 Sat by Pulse Oximetry 100 O2 Sat by Pulse Oximetry 95 O2 Sat by Pulse Oximetry 97 O2 Sat by Pulse Oximetry 95 O2 Sat by Pulse Oximetry 97 ROR Labs Reviewed 08/14/24 14:40 08/14/24 14:40 Laboratory: WBC 7.8 X10^3/uL (3.6-10.0) 08/14/24 14:40 RBC 4.04 X10^6/uL (3.5-5.4) 08/14/24 14:40 Hgb 12.3 g/dL (12.0-16.0) 08/14/24 14:40 Hct 36.6 % (36.0-47.0) 08/14/24 14:40 MCV 90.6 fL (80.0-100.0) 08/14/24 14:40 MCH 30.6 pg (27.0-34.0) 08/14/24 14:40 MCHC 33.7 g/dL (33.0-35.0) 08/14/24 14:40 RDW 16.4 % (11.6-16.5) 08/14/24 14:40 Plt Count 276 X10^3/uL (150.0-450.0) 08/14/24 14:40 MPV 9.0 fL (7.4-11.0) 08/14/24 14:40 Neut % (Auto) 70.3 % (42.0-75.0) 08/14/24 14:40 Lymph % (Auto) 21.6 % (21.0-51.0) 08/14/24 14:40 [place] % (Auto) 6.3 % (0.0-13.0) 08/14/24 14:40 Eos % (Auto) 1.0 % (0.9-2.9) 08/14/24 14:40 Baso % (Auto) 0.8 % (0.2-1.0) 08/14/24 14:40 Neut # (Auto) 5.5 x10^3/uL (2.2-4.8) H 08/14/24 14:40 Lymph # (Auto) 1.7 X10^3/uL (1.3-2.9) 08/14/24 14:40 [place] # (Auto) 0.5 x10^3/uL (0.3-0.8) 08/14/24 14:40 Eos # (Auto) 0.1 x10^3/uL (0.0-0.2) 08/14/24 14:40 Baso # (Auto) 0.1 X10^3/uL (0.0-0.1) 08/14/24 14:40 Absolute Nucleated RBC 0.0 /100WBC 08/14/24 14:40 Sodium 140 mmol/L (136-145) 08/14/24 14:40 Corrected Sodium 140 mmol/L (136-145) 08/14/24 14:40 Potassium 3.7 mmol/L (3.5-5.1) 08/14/24 14:40 Chloride 103 mmol/L (98-107) 08/14/24 14:40 Carbon Dioxide 25.3 mmol/L (21-32) 08/14/24 14:40 BUN 13 mg/dL (7-18) 08/14/24 14:40 Creatinine 1.08 mg/dL (0.55-1.02) H 08/14/24 14:40 Est GFR (MDRD) Af Amer > 60 (>60) 08/14/24 14:40 Est GFR (MDRD) Non-Af 51 (>60) L 08/14/24 14:40 Glucose 116 mg/dL (65-99) H 08/14/24 14:40 Calcium 9.1 mg/dL (8.5-10.1) 08/14/24 14:40 Corrected Calcium 9.7 mg/dL (8.5-10.1) 08/14/24 14:40 Total Bilirubin 0.30 mg/dL (0.2-1.0) 08/14/24 14:40 AST 11 Units/L (15-37) L 08/14/24 14:40 ALT 12 Units/L (12-78) 08/14/24 14:40 Alkaline Phosphatase 72 Units/L (46-116) 08/14/24 14:40 Total Protein 6.6 g/dL (6.4-8.2) 08/14/24 14:40 Albumin 3.3 g/dL (3.4-5.0) L 08/14/24 14:40 Globulin 3.3 g/dL (2.5-4.5) 08/14/24 14:40 Albumin/Globulin Ratio 1.0 Ratio (1.1-2.1) L 08/14/24 14:40 Opioid Opioid Risk Tool Age (Singh box if 16-45): No History of Preadolescent Sexual Abuse: No Total: 0 Total Score Risk Category: Low Risk Copyright: Dillon PATRICIA predicting aberrant behaviors Discharge Plan Diagnosis Discharge Problem: C. difficile colitis, Colitis Diarrhea Qualifiers: Diarrhea type: infectious Qualified Code(s): A09 - Infectious gastroenteritis and colitis, unspecified Hospital Course Hospital Course: Patient was given IV fluids with improvement in her vital signs, blood pressure. CT scan of the abdomen pelvis showed no signs of inflammation or bowel obstruction but has copious stools in the colon. Discharge Plan Patient Disposition: 09 ADMITTED INPATIENT Assessment: C. difficile Colitis Diarrhea Condition: Stable Prescription drug monitoring program results: PDMP reviewed and no concerns identified Prescriptions: New lactulose [Enulose] 10 gram/15 mL solution 20 g PO TID 3 Days Qty: 270 0RF No Action Trelegy Ellipta 100-62.5-25 mcg blister with device 1 inh inhalation QDAY Qty: 60 3RF amiodarone [Pacerone] 200 mg tablet 200 mg PO BID Qty: 60 0RF metoprolol succinate [Toprol XL] 50 mg tablet extended release 24 hr 50 mg PO QDAY levothyroxine [Synthroid] 50 mcg tablet 50 mcg PO QAM donepezil 5 mg tablet 5 mg PO QDAY Rybelsus 7 mg tablet 7 mg PO QDAY magnesium oxide 400 mg (241.3 mg magnesium) tablet 400 mg PO BID Qty: 60 0RF esomeprazole magnesium [Nexium] 40 mg capsule,delayed release(DR/EC) 40 mg PO QDAY Eliquis 2.5 mg Tablet 2.5 mg PO BID furosemide 40 mg Tablet 40 mg PO PRN PRN diltiazem HCl 30 mg tablet 60 mg PO Q6H Patient Comments: [NO ORIGINAL SIG] Health Concerns: Post Hospitalization: new medications and changes needed to prevent readmission or further decline. Pt educated and given instructions on all concerns. Plan of Treatment: Continue with present treatment and follow up plan. Pt is to keep follow up appointment as instructed and take medications as ordered. Orders to Discharge Patient Discharge Orders: Discharge (Routine); Ordered 08/14/24 Ordered By: Kulwant Huggins Follow ups/Referrals Follow ups/Referrals: BALAJI RECIO [Primary Care Provider] - 3 days Instructions Instructions: Managing Neurogenic Bowel, Constipation, Adult, [id number] Stand Alone Forms: Find Help Web Site
[2024-08-14 19:18] VITALS: BMI 32.2
[2024-08-14] MEDS ORDERED: PATIENT'S HOME MEDICATION (Apixaban [Eliquis] 2.5 mg Tablet) PO SCH (21:00)
[2024-08-14] MEDS ORDERED: NovoLIN R (or HumuLIN R) SUBCUT PRN (21:36)
[2024-08-14] MEDS: MAG-OX TAB PO SCH (22:05)
[2024-08-14] MEDS: ELIQUIS PO SCH (22:05)
[2024-08-15 02:54] LABS: BILIRUBIN,URINE NEGATIVE (NEGATIVE); BLOOD/HEMOGLOBIN,URINE NEGATIVE (NEGATIVE); GLUCOSE, URINE NEGATIVE (NEGATIVE); KETONES,URINE NEGATIVE (NEGATIVE); LEUKOCYTE ESTERASE ,URINE 2+ (NEGATIVE); NITRITES,URINE NEGATIVE (NEGATIVE); PH,URINE 6.5 (5.0 - 8.0); PROTEIN,URINE 1+ (NEGATIVE); UROBILINOGEN,URINE NORMAL (NORMAL)
[2024-08-15 02:56] LABS: APPEARANCE,URINE CLOUDY (CLEAR); COLOR,URINE STRAW (YELLOW)
[2024-08-15 03:04] LABS: BACTERIA,URINE TRACE /HPF (NEGATIVE); RBC,URINE 0-2 /HPF (0-3); SQUAMOUS EPITHELIAL CELL,UR MANY /HPF (NEGATIVE); YEAST,URINE RARE /HPF (NEGATIVE)
[2024-08-15 06:01] LABS: BASOPHILS # (AUTO) 0.1 X10^3/uL (0.0-0.1); BASOPHILS % (AUTO) 0.8 % (0.2-1.0); EOSINOPHILS # (AUTO) 0.1 x10^3/uL (0.0-0.2); EOSINOPHILS % (AUTO) 1.1 % (0.9-2.9); HEMATOCRIT 36.7 % (36.0-47.0); HEMOGLOBIN 12.4 g/dL (12.0-16.0); LYMPHOCYTES # (AUTO) 1.6 X10^3/uL (1.3-2.9); LYMPHOCYTES % (AUTO) 22.9 % (21.0-51.0); MEAN CORPUSCULAR HEMOGLOBIN 30.3 pg (27.0-34.0); MEAN CORPUSCULAR HGB CONC 33.6 g/dL (33.0-35.0); MEAN CORPUSCULAR VOLUME 90.2 fL (80.0-100.0); MEAN PLATELET VOLUME 9.6 fL (7.4-11.0); MONOCYTES # (AUTO) 0.5 x10^3/uL (0.3-0.8); MONOCYTES % (AUTO) 7.4 % (0.0-13.0); NEUTROPHILS # (AUTO) 4.6 x10^3/uL (2.2-4.8); NEUTROPHILS % (AUTO) 67.8 % (42.0-75.0); PLATELET COUNT 262 X10^3/uL (150.0-450.0); RED BLOOD COUNT 4.07 X10^6/uL (3.5-5.4); RED CELL DISTRIBUTION WIDTH 16.1 % (11.6-16.5); WHITE BLOOD COUNT 6.8 X10^3/uL (3.6-10.0)
[2024-08-15 06:17] LABS: ALANINE AMINOTRANSFERASE 12 Units/L (12-78); ALKALINE PHOSPHATASE 67 Units/L (46-116); ASPARTATE AMINO TRANSFERASE 9 Units/L (15-37); BLOOD UREA NITROGEN 13 mg/dL (7-18); CARBON DIOXIDE 26.5 mmol/L (21-32); CHLORIDE 106 mmol/L (98-107); COR CA(FOR HYPOALB) 9.8 mg/dL (8.5-10.1); CREATININE 0.92 mg/dL (0.55-1.02); GLUCOSE 101 mg/dL (65-99); MAGNESIUM 1.6 mg/dL (2.0-2.9); POTASSIUM 3.6 mmol/L (3.5-5.1); SODIUM 142 mmol/L (136-145); TOTAL PROTEIN 6.2 g/dL (6.4-8.2); eGFR NON BLACK RACES > 60 (>60)
[2024-08-15] MEDS ORDERED: CONSULT PHARMACY - POTASSIUM & MAGNESIUM XX SCH (08:00)
[2024-08-15] MEDS ORDERED: NovoLIN R (or HumuLIN R) SUBCUT PRN (08:28)
[2024-08-15] MEDS ORDERED: DEXTROSE 10% 1,000 ML IV PRN (08:28)
[2024-08-15 08:54] LABS: MAGNESIUM 1.7 mg/dL (2.0-2.9); PHOSPHORUS 3.5 mg/dL (2.6-4.7)
[2024-08-15] MEDS: CORDARONE TAB 200 MG PO SCH (09:21)
[2024-08-15] MEDS: NexIUM PO SCH (09:21)
[2024-08-15] MEDS: VANCOMYCIN HCL 250 MG CAP PO SCH (09:21)
[2024-08-15] MEDS: TOPROL XL PO SCH (09:21)
[2024-08-15] MEDS: K-DUR TAB 20 MEQ PO SCH (09:21)
[2024-08-15] MEDS: SYNTHROID 50 mcg TAB PO SCH (09:21)
[2024-08-15] MEDS: MAG-OX TAB PO SCH (11:52)
[2024-08-15] MEDS: ULTRAM PO PRN (17:14)
--- NOTE | 2024-08-15 17:41 | DR.H&P ---
H&P History & Physical for Day of: H&P Date: 08/15/24 Chief Complaint Chief Complaint: SEVERE DIARRHEA AND WEAKNESS History of Present Illness History of Present Illness: PT IS 84 WF, ER ADMISSION AFTER PRESENTING WITH CO SEVERE DIARRHEA X 1 WEEK WITH WEAKNESS. PT HAD +CDIFF ON ARRIVAL TO ER. PT ADMITTED FOR HYDRATION AND EVALUATION OF ACUTE ILLNESS. PT HAS PMH OF HTN, DM, AFIB, RESIDENTIAL ANTICOAGULANT THERAPY, GERD AND OA. Past Medical History Past Medical History: Arthritis, Asthma, Diabetes, Dyslipidemia, GERD, Hypertension and Hypothyroidism Past Surgical History Surgical History: Other Family History Family Medical History: Diabetes Mellitus, Cancer, [place] and Hypertension Social History Does patient currently use any type of tobacco product: No Have you used tobacco products in the last 12 months: No Type of Tobacco Use: None Does any household member use tobacco: No Alcohol Use: None Drug Use: None Medications Home Medications: Home Medications Medication Instructions Recorded Confirmed Type levothyroxine 50 mcg tablet 50 mcg PO QAM 02/02/24 08/14/24 History (Synthroid) metoprolol succinate 50 mg 50 mg PO QDAY 02/02/24 08/14/24 History tablet,extended release 24 hr (Toprol XL) esomeprazole magnesium 40 mg 40 mg PO QDAY 04/30/24 08/14/24 History capsule,delayed release (Nexium) apixaban 2.5 mg tablet (Eliquis) 2.5 mg PO BID 05/14/24 08/14/24 History furosemide 40 mg tablet 40 mg PO PRN PRN 05/14/24 07/25/24 History diltiazem HCl 30 mg tablet 60 mg PO Q6H 06/06/24 07/25/24 History donepezil 5 mg tablet 5 mg PO QDAY 07/25/24 08/14/24 History semaglutide 7 mg tablet (Rybelsus) 7 mg PO QDAY 07/25/24 08/14/24 History amiodarone 200 mg tablet (Pacerone) 200 mg PO DAILY 08/14/24 08/14/24 History amlodipine 5 mg tablet 5 mg PO QDAY 08/14/24 08/14/24 History chlorthalidone 25 mg tablet 25 mg PO QDAY 08/14/24 08/14/24 History megestrol 40 mg tablet 40 mg PO QDAY 08/14/24 08/14/24 History Allergies Allergies Allergy/AdvReac Type Severity Reaction Status Date / Time cefpodoxime Allergy Severe ANAPHALEXIS Verified 08/14/24 16:38 REACTION levofloxacin [Levaquin] Allergy Unknown Verified 08/14/24 16:38 nitrofurantoin Allergy Unknown Hives; Verified 08/14/24 16:38 Itching; Rash penicillin V Allergy Unknown Verified 08/14/24 16:38 lidocaine Allergy Verified 08/14/24 16:38 codeine AdvReac Mild RASH Verified 08/14/24 16:38 penicillin G AdvReac Mild RASH Verified 08/14/24 16:38 procaine AdvReac Mild itching Verified 08/14/24 16:38 Sulfa (Sulfonamide AdvReac Mild RASH Verified 08/14/24 16:38 Antibiotics) [SULFA] Labs 08/15/24 05:12 08/15/24 05:12 Labs: Laboratory WBC 6.8 X10^3/uL (3.6-10.0) 08/15/24 05:12 RBC 4.07 X10^6/uL (3.5-5.4) 08/15/24 05:12 Hgb 12.4 g/dL (12.0-16.0) 08/15/24 05:12 Hct 36.7 % (36.0-47.0) 08/15/24 05:12 MCV 90.2 fL (80.0-100.0) 08/15/24 05:12 MCH 30.3 pg (27.0-34.0) 08/15/24 05:12 MCHC 33.6 g/dL (33.0-35.0) 08/15/24 05:12 RDW 16.1 % (11.6-16.5) 08/15/24 05:12 Plt Count 262 X10^3/uL (150.0-450.0) 08/15/24 05:12 MPV 9.6 fL (7.4-11.0) 08/15/24 05:12 Neut % (Auto) 67.8 % (42.0-75.0) 08/15/24 05:12 Lymph % (Auto) 22.9 % (21.0-51.0) 08/15/24 05:12 [place] % (Auto) 7.4 % (0.0-13.0) 08/15/24 05:12 Eos % (Auto) 1.1 % (0.9-2.9) 08/15/24 05:12 Baso % (Auto) 0.8 % (0.2-1.0) 08/15/24 05:12 Neut # (Auto) 4.6 x10^3/uL (2.2-4.8) 08/15/24 05:12 Lymph # (Auto) 1.6 X10^3/uL (1.3-2.9) 08/15/24 05:12 [place] # (Auto) 0.5 x10^3/uL (0.3-0.8) 08/15/24 05:12 Eos # (Auto) 0.1 x10^3/uL (0.0-0.2) 08/15/24 05:12 Baso # (Auto) 0.1 X10^3/uL (0.0-0.1) 08/15/24 05:12 Absolute Nucleated RBC 0.1 /100WBC 08/15/24 05:12 Sodium 142 mmol/L (136-145) 08/15/24 05:12 Corrected Sodium TNP 08/15/24 05:12 Potassium 3.6 mmol/L (3.5-5.1) 08/15/24 05:12 Chloride 106 mmol/L (98-107) 08/15/24 05:12 Carbon Dioxide 26.5 mmol/L (21-32) 08/15/24 05:12 BUN 13 mg/dL (7-18) 08/15/24 05:12 Creatinine 0.92 mg/dL (0.55-1.02) 08/15/24 05:12 Est GFR (MDRD) Af Amer > 60 (>60) 08/15/24 05:12 Est GFR (MDRD) Non-Af > 60 (>60) 08/15/24 05:12 Glucose 101 mg/dL (65-99) H 08/15/24 05:12 POC Glucose (mg/dL) 70 mg/dL (65-99) 08/15/24 16:59 Calcium 9.0 mg/dL (8.5-10.1) 08/15/24 05:12 Corrected Calcium 9.8 mg/dL (8.5-10.1) 08/15/24 05:12 Phosphorus 3.5 mg/dL (2.6-4.7) 08/15/24 05:12 Magnesium 1.6 mg/dL (2.0-2.9) L 08/15/24 05:12 Magnesium 1.7 mg/dL (2.0-2.9) L 08/15/24 05:12 Total Bilirubin 0.30 mg/dL (0.2-1.0) 08/15/24 05:12 AST 9 Units/L (15-37) L 08/15/24 05:12 ALT 12 Units/L (12-78) 08/15/24 05:12 Alkaline Phosphatase 67 Units/L (46-116) 08/15/24 05:12 Total Protein 6.2 g/dL (6.4-8.2) L 08/15/24 05:12 Albumin 3.0 g/dL (3.4-5.0) L 08/15/24 05:12 Globulin 3.2 g/dL (2.5-4.5) 08/15/24 05:12 Albumin/Globulin Ratio 0.9 Ratio (1.1-2.1) L 08/15/24 05:12 Triglycerides 83 mg/dL (0-150) 08/15/24 05:12 Specimen Type Clean catch urine 08/15/24 02:40 Urine Color Straw (YELLOW) 08/15/24 02:40 Urine Appearance Cloudy (CLEAR) 08/15/24 02:40 Urine pH 6.5 (5.0 - 8.0) 08/15/24 02:40 Ur Specific [place] 1.005 (1.000-1.030) 08/15/24 02:40 Urine Protein 1+ (NEGATIVE) 08/15/24 02:40 Urine Glucose (UA) Negative (NEGATIVE) 08/15/24 02:40 Urine Ketones Negative (NEGATIVE) 08/15/24 02:40 Urine Blood Negative (NEGATIVE) 08/15/24 02:40 Urine Nitrite Negative (NEGATIVE) 08/15/24 02:40 Urine Bilirubin Negative (NEGATIVE) 08/15/24 02:40 Urine Urobilinogen Normal (NORMAL) 08/15/24 02:40 Ur Leukocyte Esterase 2+ (NEGATIVE) 08/15/24 02:40 Urine RBC 0-2 /HPF (0-3) 08/15/24 02:40 Urine WBC 10-20 /HPF (0-5) A 08/15/24 02:40 Ur Squamous Epith Cells Many /HPF (NEGATIVE) 08/15/24 02:40 Amorphous Sediment Trace /HPF (NEGATIVE) 08/15/24 02:40 Urine Bacteria Trace /HPF (NEGATIVE) 08/15/24 02:40 Urine Mucus Few /HPF (NEGATIVE) 08/15/24 02:40 Urine Yeast Rare /HPF (NEGATIVE) 08/15/24 02:40 Ur Culture Indicated? No/not indicated 08/15/24 02:40 Review of Systems Constitutional: Weakness Eyes: No Symptoms Reported ENT: No Symptoms Reported Respiratory: No Symptoms Reported Cardiovascular: denies Chest Pain Gastrointestinal: Nausea and Diarrhea Genitourinary: No Symptoms Reported Musculoskeletal: Back Pain Skin: No Symptoms Reported Neurological: No Symptoms Reported Physical Exam Vital Signs: Vital Signs Temperature 98.0 F Temperature 97.3 F Pulse Rate [Left] 87 Pulse Rate [Left] 96 Respiratory Rate 19 Respiratory Rate 19 Respiratory Rate 17 Blood Pressure [Left Arm] 122/66 Blood Pressure [Left Arm] 120/70 O2 Sat by Pulse Oximetry 97 O2 Sat by Pulse Oximetry 97 Oriented: Normal Eyes: Normal Ear: Normal Nose: Normal Throat: Dry Respiratory: RLL Diminished and LLL Diminished Cardiovascular: Normal : Normal Auscultation: Bowel Sounds: Increased Tenderness: LLQ and Mild Skin: Normal Musculoskeletal: Knee, Back:Lumbar and Motor Deficit Psychiatric: Depression Mood Description: Depressed Affect: Depressed Speech Pattern: Clear and Appropriate Assessment/Plan (1) C. difficile colitis: Status: Acute Plan: ADMIT, IV HYDRATION PO VANCOMYCIN ELECTROLYTE REPLACEMENT THERAPY BP CONTROL, BS CONTROL VERIFY AND RESUME HOME MEDICATIONS (2) Atrial fibrillation: Qualifiers: Atrial fibrillation type: unspecified Qualified Code(s): I48.91 - Unspecified atrial fibrillation Status: Chronic (3) Acute hypokalemia: Status: Acute (4) Generalized weakness: Status: Acute (5) Hypomagnesemia: Status: Acute (6) Depression: Status: None (7) Type 2 diabetes mellitus with obesity: Status: None (8) Hypertension: Qualifiers: Hypertension type: primary hypertension Qualified Code(s): I10 - Essential (primary) hypertension Status: Chronic
[2024-08-15] MEDS: SNACK - Diabetic Appropriate PO SCH (21:00)
[2024-08-16] MEDS: NORCO 5/325 MG TAB PO PRN (01:27)
[2024-08-16 06:02] LABS: BASOPHILS # (AUTO) 0.1 X10^3/uL (0.0-0.1); EOSINOPHILS # (AUTO) 0.1 x10^3/uL (0.0-0.2); EOSINOPHILS % (AUTO) 1.2 % (0.9-2.9); HEMOGLOBIN 11.5 g/dL (12.0-16.0); LYMPHOCYTES # (AUTO) 2.4 X10^3/uL (1.3-2.9); LYMPHOCYTES % (AUTO) 24.9 % (21.0-51.0); MEAN CORPUSCULAR HEMOGLOBIN 30.7 pg (27.0-34.0); MEAN CORPUSCULAR HGB CONC 33.9 g/dL (33.0-35.0); MEAN CORPUSCULAR VOLUME 90.7 fL (80.0-100.0); MEAN PLATELET VOLUME 10.1 fL (7.4-11.0); MONOCYTES # (AUTO) 0.7 x10^3/uL (0.3-0.8); MONOCYTES % (AUTO) 7.7 % (0.0-13.0); NEUTROPHILS # (AUTO) 6.2 x10^3/uL (2.2-4.8); NEUTROPHILS % (AUTO) 65.2 % (42.0-75.0); PLATELET COUNT 255 X10^3/uL (150.0-450.0); RED BLOOD COUNT 3.74 X10^6/uL (3.5-5.4); RED CELL DISTRIBUTION WIDTH 16.2 % (11.6-16.5); WHITE BLOOD COUNT 9.5 X10^3/uL (3.6-10.0)
[2024-08-16 06:44] LABS: ALANINE AMINOTRANSFERASE 12 Units/L (12-78); ALBUMIN 2.9 g/dL (3.4-5.0); ALKALINE PHOSPHATASE 62 Units/L (46-116); ASPARTATE AMINO TRANSFERASE 12 Units/L (15-37); BLOOD UREA NITROGEN 16 mg/dL (7-18); CALCIUM 8.7 mg/dL (8.5-10.1); CARBON DIOXIDE 25.6 mmol/L (21-32); CHLORIDE 104 mmol/L (98-107); COR CA(FOR HYPOALB) 9.6 mg/dL (8.5-10.1); CREATININE 1.08 mg/dL (0.55-1.02); GLUCOSE 90 mg/dL (65-99); MAGNESIUM 1.7 mg/dL (2.0-2.9); SODIUM 138 mmol/L (136-145); TOTAL PROTEIN 5.8 g/dL (6.4-8.2); eGFR NON BLACK RACES 51 (>60)
[2024-08-16] MEDS: CONSULT PHARMACY - POTASSIUM & MAGNESIUM XX SCH (06:59)
[2024-08-16 08:13] VITALS: BP 134/74; RESP 19; TEMP 97.8; O2SAT 98
[2024-08-16 09:05] VITALS: PULSE 80
[2024-08-16] MEDS ORDERED: MAG-OX TAB PO SCH (11:00)
== END 2024-08-16 12:00 | disposition home health service (06) ==
LOC: MED/SURG 12:54 → ER 12:54 → MED/SURG 18:25
PROVIDERS: ADMIT Internal Medicine; ATTEND Internal Medicine
DX: J44.9 Chronic obstructive pulmonary disease, unspecified; G25.81 Restless legs syndrome; Z87.440 Personal history of urinary (tract) infections; M19.90 Unspecified osteoarthritis, unspecified site; R82.998 Other abnormal findings in urine; J45.909 Unspecified asthma, uncomplicated; E83.42 Hypomagnesemia; E11.65 Type 2 diabetes mellitus with hyperglycemia; R53.1 Weakness; E03.9 Hypothyroidism, unspecified; F32.A Depression, unspecified; F41.8 Other specified anxiety disorders; M54.50 Low back pain, unspecified; E87.6 Hypokalemia; A04.72 Enterocolitis due to Clostridium difficile, not specified as recurrent; E78.5 Hyperlipidemia, unspecified; R10.9 Unspecified abdominal pain; K21.9 Gastro-esophageal reflux disease without esophagitis; E86.0 Dehydration; I10 Essential (primary) hypertension; I48.91 Unspecified atrial fibrillation; R30.0 Dysuria; E66.9 Obesity, unspecified; R26.89 Other abnormalities of gait and mobility; Z68.34 Body mass index [BMI] 34.0-34.9, adult; Z79.01 Long term (current) use of anticoagulants; Z87.09 Personal history of other diseases of the respiratory system

== ENCOUNTER 2024-12-12 12:50 | Observation (INO) ==
--- NOTE | 2024-12-12 13:09 | EKG ---
Test Reason : chest pain Blood Pressure : */* mmHG Vent. Rate : 63 BPM Atrial Rate : 63 BPM P-R Int : 164 ms QRS Dur : 84 ms QT Int : 364 ms P-R-T Axes : 62 25 59 degrees QTc Int : 372 ms Normal sinus rhythm Low voltage QRS Septal infarct (cited on or before 04-DEC-2024) Abnormal ECG When compared with ECG of 04-DEC-2024 10:08, QT has shortened Confirmed by Luis Galindo MD ([id number]) on 12/12/2024 1:22:56 PM Referred By: Confirmed By: Luis Galindo MD
--- NOTE | 2024-12-12 13:18 | DR.GENAD ---
HPI Time Seen Time Seen by Provider: 12/12/24 12:56 Complaint/Symptoms Chief Complaint Doctors Comments: 84 yo F, hx of HTN, DM, hx cardiac ablation last year, c/o increasing periph edema and increasing dyspnea over the past wk. Admits to prod cough. Denies CP. Denies fever. Denies other complaints. COVID-19 Coronavirus risk:travel/contact w/high risk person: No Has patient experienced Coronavirus symptoms: No PMH PMH Past Medical History: Arthritis, Asthma, Diabetes, Dyslipidemia, GERD, Hypertension and Hypothyroidism Past Surgical History: Yes Surgical History: Other Family History Family Medical History: Diabetes Mellitus, Cancer, [place] and Hypertension Social History Do you use any recreational Drugs:: No Travel Risk Coronavirus risk:travel/contact w/high risk person: No Has patient experienced Coronavirus symptoms: No ROS Review of Systems Respiratoy: Short of Breath Cardiovascular: Edema All Other Systems: Reviewed and Negative PE Vital Signs Vitals: Vital Signs Temperature 98.1 F Pulse Rate 61 Pulse Rate 59 Pulse Rate 62 Pulse Rate 58 Pulse Rate 59 Pulse Rate 61 Pulse Rate 64 Pulse Rate 63 Pulse Rate 64 Pulse Rate 62 Respiratory Rate 19 Respiratory Rate 30 Respiratory Rate 43 Respiratory Rate 32 Respiratory Rate 31 Respiratory Rate 31 Respiratory Rate 28 Respiratory Rate 22 Respiratory Rate 20 Blood Pressure 159/70 Blood Pressure 158/65 O2 Sat by Pulse Oximetry 97 O2 Sat by Pulse Oximetry 96 O2 Sat by Pulse Oximetry 96 O2 Sat by Pulse Oximetry 96 O2 Sat by Pulse Oximetry 97 O2 Sat by Pulse Oximetry 96 O2 Sat by Pulse Oximetry 97 O2 Sat by Pulse Oximetry 94 O2 Sat by Pulse Oximetry 94 O2 Sat by Pulse Oximetry 93 General Limitations: No Limitations General Appearance: Alert and In No Apparent Distress Head Head Exam: Normal Inspection Eyes Eye exam: Normal Appearance ENT ENT Exam: Normal Exam External Ear Exam: Normal External Inspection TM/Canal Exam: Bilateral: Normal Nose Exam: Normal Nose Exam Mouth Exam: Normal Inspection Throat Exam: Normal Inspection Neck Neck Exam: Normal Inspection Chest Chest Inspection: Normal Inspection Respiratory Respiratory Exam: Bilateral: Crackles Cardiovascular Cardiovascular Exam: Regular Rate and Normal Rhythm Abdominal Exam Abdominal Exam: Normal Inspection, Normal Bowel Sounds and Soft Extremities Extremities Exam: Edema (2+ pitting edema in bilat lower ext) Back Back Exam: Normal Inspection Neurologic Neurological Exam: Alert and Oriented X3 Psychiatric Psychiatric Exam: Normal Affect and Normal Mood Skin Skin Exam: Warm, Dry, Intact and Normal Color ROR Labs Reviewed Laboratory Results Reviewed?: Yes 12/12/24 13:13 12/12/24 13:13 Laboratory: WBC 7.7 X10^3/uL (3.6-10.0) 12/12/24 13:13 RBC 3.91 X10^6/uL (3.5-5.4) 12/12/24 13:13 Hgb 9.8 g/dL (12.0-16.0) L 12/12/24 13:13 Hct 30.7 % (36.0-47.0) L 12/12/24 13:13 MCV 78.5 fL (80.0-100.0) L 12/12/24 13:13 MCH 25.0 pg (27.0-34.0) L 12/12/24 13:13 MCHC 31.9 g/dL (33.0-35.0) L 12/12/24 13:13 RDW 17.7 % (11.6-16.5) H 12/12/24 13:13 Plt Count 337 X10^3/uL (150.0-450.0) 12/12/24 13:13 MPV 8.0 fL (7.4-11.0) 12/12/24 13:13 Neut % (Auto) 74.9 % (42.0-75.0) 12/12/24 13:13 Lymph % (Auto) 15.3 % (21.0-51.0) L 12/12/24 13:13 [place] % (Auto) 8.2 % (0.0-13.0) 12/12/24 13:13 Eos % (Auto) 0.6 % (0.9-2.9) L 12/12/24 13:13 Baso % (Auto) 1.0 % (0.2-1.0) 12/12/24 13:13 Neut # (Auto) 5.8 x10^3/uL (2.2-4.8) H 12/12/24 13:13 Lymph # (Auto) 1.2 X10^3/uL (1.3-2.9) L 12/12/24 13:13 [place] # (Auto) 0.6 x10^3/uL (0.3-0.8) 12/12/24 13:13 Eos # (Auto) 0.0 x10^3/uL (0.0-0.2) 12/12/24 13:13 Baso # (Auto) 0.1 X10^3/uL (0.0-0.1) 12/12/24 13:13 Absolute Nucleated RBC 0.0 /100WBC 12/12/24 13:13 PT 15.8 SECONDS (11.8-14.3) 12/12/24 13:13 INR Target Range - 12/12/24 13:13 INR 1.24 (0.8-1.3) 12/12/24 13:13 APTT 35.4 SECONDS (22.9-36.5) 12/12/24 13:13 PTT Comment - 12/12/24 13:13 Sodium 139 mmol/L (136-145) 12/12/24 13:13 Corrected Sodium TNP 12/12/24 13:13 Potassium 3.0 mmol/L (3.5-5.1) L 12/12/24 13:13 Chloride 101 mmol/L (98-107) 12/12/24 13:13 Carbon Dioxide 33.5 mmol/L (21-32) H 12/12/24 13:13 BUN 10 mg/dL (7-18) 12/12/24 13:13 Creatinine 0.87 mg/dL (0.55-1.02) 12/12/24 13:13 Est GFR (MDRD) Af Amer > 60 (>60) 12/12/24 13:13 Est GFR (MDRD) Non-Af > 60 (>60) 12/12/24 13:13 Glucose 101 mg/dL (65-99) H 12/12/24 13:13 Calcium 8.8 mg/dL (8.5-10.1) 12/12/24 13:13 Corrected Calcium 9.4 mg/dL (8.5-10.1) 12/12/24 13:13 Magnesium 1.6 mg/dL (2.0-2.9) L 12/12/24 13:13 Total Bilirubin 0.80 mg/dL (0.2-1.0) 12/12/24 13:13 AST 14 Units/L (15-37) L 12/12/24 13:13 ALT 14 Units/L (12-78) 12/12/24 13:13 Alkaline Phosphatase 83 Units/L (46-116) 12/12/24 13:13 Creatine Kinase 35 Units/L (26-192) 12/12/24 13:13 Troponin I High Sens 8.3 ng/L (4.0-60.0) 12/12/24 13:13 B-Natriuretic Peptide 351 pg/mL (0-79) H 12/12/24 13:13 Total Protein 7.0 g/dL (6.4-8.2) 12/12/24 13:13 Albumin 3.3 g/dL (3.4-5.0) L 12/12/24 13:13 Globulin 3.7 g/dL (2.5-4.5) 12/12/24 13:13 Albumin/Globulin Ratio 0.9 Ratio (1.1-2.1) L 12/12/24 13:13 Opioid Opioid Risk Tool Age (Singh box if 16-45): No History of Preadolescent Sexual Abuse: No Total: 0 Total Score Risk Category: Low Risk Copyright: Dillon PATRICIA predicting aberrant behaviors Discharge Plan Diagnosis Discharge Problem: Acute exacerbation of CHF (congestive heart failure), Hypoxia, Acute hypokalemia Discharge Plan Patient Disposition: 09 ADMITTED INPATIENT Condition: Stable Prescriptions: No Action furosemide [Lasix] 40 mg tablet 40 mg PO QDAY PRN (Reason: edema) Qty: 90 3RF diltiazem HCl [Cardizem] 30 mg tablet 60 mg PO QID metoprolol succinate [Toprol XL] 50 mg tablet extended release 24 hr 50 mg PO QDAY levothyroxine [Synthroid] 50 mcg tablet 50 mcg PO QAM amiodarone 200 mg tablet 200 mg PO BID ondansetron HCl 4 mg tablet 4 mg PO Q6H PRN hydrocodone-acetaminophen 10-325 mg tablet 1 tab PO QID PRN potassium chloride 20 mEq tablet,ER particles/crystals 20 meq PO QDAY dexamethasone 2 mg tablet 2 mg PO DAILY ropinirole 0.5 mg tablet 0.5 mg PO DAILY docusate sodium 100 mg capsule 100 mg PO BID albuterol sulfate 90 mcg/actuation HFA aerosol inhaler 90 mcg inhalation Q4H PRN Trelegy Ellipta 100-62.5-25 mcg blister with device 1 ea inhalation QDAY esomeprazole magnesium [Nexium] 40 mg capsule,delayed release(DR/EC) 40 mg PO QDAY Eliquis 2.5 mg Tablet 2.5 mg PO BID Health Concerns: Post Hospitalization: new medications and changes needed to prevent readmission or further decline. Pt educated and given instructions on all concerns. Plan of Treatment: Continue with present treatment and follow up plan. Pt is to keep follow up appointment as instructed and take medications as ordered. Orders to Discharge Patient Discharge Orders: Transfer (Routine); Ordered 12/12/24 Ordered By: Tyler Govea Follow ups/Referrals Follow ups/Referrals: N[facility],None [Primary Care Provider] - 3 days Instructions Stand Alone Forms: Find Help Web Site, Post Hospital Follow Up Care Print Language: BHUTANESE ADDITIONAL NOTES Additional Notes Additional Notes: Pt accepted by Dr Verde
[2024-12-12 13:25] LABS: MEAN PLATELET VOLUME 8.0 fL (7.4-11.0); RED CELL DISTRIBUTION WIDTH 17.7 % (11.6-16.5)
[2024-12-12 13:29] VITALS: BMI 34.4
[2024-12-12 13:30] LABS: INR 1.24 (0.8-1.3)
[2024-12-12 13:37] LABS: COR CA(FOR HYPOALB) 9.4 mg/dL (8.5-10.1); CREATININE 0.87 mg/dL (0.55-1.02); eGFR NON BLACK RACES > 60 (>60)
[2024-12-12] MEDS ORDERED: VENTOLIN or PROAIR HFA IN PRN (15:06)
[2024-12-12] MEDS ORDERED: TYLENOL 325 MG TAB PO PRN (15:06)
[2024-12-12] MEDS ORDERED: ZOFRAN TAB 4 MG PO PRN (15:06)
[2024-12-12] MEDS ORDERED: ZOFRAN INJ 4 MG VIAL IVP PRN (15:06)
[2024-12-12] MEDS ORDERED: MORPHINE SULFATE INJ 2 MG INJ IVP PRN (15:06)
[2024-12-12] MEDS: CARDIZEM TAB 30 MG PLAIN PO SCH (16:44)
[2024-12-12] MEDS: MAG-OX TAB PO SCH (16:44)
[2024-12-12] MEDS: K-DUR TAB 20 MEQ PO SCH (16:45)
--- NOTE | 2024-12-12 18:23 | RAD ---
EXAM: CHEST, 1 VIEW HISTORY: SOB; COMPARISON: Prior study or studies were utilized for comparison during interpretation with the most relevant dated 08/14/2024 TECHNIQUE: CHEST, 1 VIEW FINDINGS: Chest: Lines and tubes: Cardiac leads overlie the chest. Mediastinum: Cardiomegaly. Pulmonary vessels: There is pulmonary vascular congestion. Lung greene: Patchy opacities are seen Pleura: No effusion. No pneumothorax. Bones and soft tissues: No acute osseous or soft tissue abnormality. IMPRESSION: 1. Findings suggest heart failure THIS IS AN ELECTRONICALLY VERIFIED FINAL REPORT 12/12/2024 6:20 PM - Electronically signed by Facundo Lopez MD
[2024-12-12] MEDS: DUONEB 0.5 MG/3 MG (3 mL) NEB SCH (18:29)
--- NOTE | 2024-12-12 19:13 | EKG ---
Test Reason : CHF HX AFIB Blood Pressure : */* mmHG Vent. Rate : 58 BPM Atrial Rate : 58 BPM P-R Int : 170 ms QRS Dur : 82 ms QT Int : 396 ms P-R-T Axes : 77 21 76 degrees QTc Int : 388 ms Sinus bradycardia Low voltage QRS Septal infarct (cited on or before 04-DEC-2024) Abnormal ECG When compared with ECG of 12-DEC-2024 13:08, Nonspecific T wave abnormality now evident in Inferior leads Confirmed by Luis Galindo MD ([id number]) on 12/13/2024 5:48:47 AM Referred By: Confirmed By: Luis Galindo MD
[2024-12-12] MEDS: PULMICORT NEB TX 0.5 MG NEB SCH (19:16)
--- NOTE | 2024-12-12 19:47 | DR.H&P ---
H&P History & Physical for Day of: H&P Date: 12/12/24 Chief Complaint Chief Complaint: sob, swelling all over, weakness History of Present Illness History of Present Illness: PT IS 84 WF. ER ADMISSION AFTER PRESENTING WITH CO SWELLING ALL OVER AND INCREASED SOB AND WEAKNESS. PT HAS PMH OF AFIB, ON ALF ANTICOAGULANT THERAPY WITH ELIQUIS, REPORTS RECENT CARDIOVERSION. PT CO INCREASED SOB OVER THE PAST WEEK. PT HAS PMH OF COPD, DM, HTN, OA, MAITE, GERD, AFIB AND HYPOTHYROIDISM. PT WAS ADMITTED FOR EVALUATION AND TREATMENT OF ACUTE ILLNESS. Past Medical History Past Medical History: Arthritis, Asthma, Diabetes, Dyslipidemia, GERD, Hypertension and Hypothyroidism Past Surgical History Surgical History: Other Family History Family Medical History: Diabetes Mellitus, Cancer, MT and Hypertension Social History Does patient currently use any type of tobacco product: No Have you used tobacco products in the last 12 months: No Type of Tobacco Use: None Does any household member use tobacco: No Alcohol Use: None Drug Use: None Medications Home Medications: Home Medications Medication Instructions Recorded Confirmed Type levothyroxine 50 mcg tablet 50 mcg PO QAM 02/02/2410/31 History (Synthroid) metoprolol succinate 50 mg 50 mg PO QDAY 02/02/2410/31 History tablet,extended release 24 hr (Toprol XL) esomeprazole magnesium 40 mg 40 mg PO QDAY 04/30/24 History capsule,delayed release (Nexium) apixaban 2.5 mg tablet (Eliquis) 2.5 mg PO BID 5 12/12/24 History diltiazem HCl 30 mg tablet 60 mg PO QID 11/12/2412/12 History (Cardizem) albuterol sulfate 90 mcg/actuation 90 mcg inhalation Q 4H PRN 12/12/24 12/12/24 History aerosol inhaler amiodarone 200 mg tablet 200 mg PO BID 12/12/2412/12 History dexamethasone 2 mg tablet 2 mg PO DAILY 12/12/2412/12 History docusate sodium 100 mg capsule 100 mg PO BID 12/12/24 12/12/24 History fluticasone fur. 100 mcg-umeclid 1 ea inhalation QDAY 12/12/24 12/12/24 History 62.5 mcg-vilant 25 mcg inhalat.powder (Trelegy Ellipta) hydrocodone 10 mg-acetaminophen 1 tab PO QID PRN 12/1212/12/24 History 325 mg tablet ondansetron HCl 4 mg tablet 4 mg PO Q6H PRN 12/12/24 0 12/12/24 History potassium chloride 20 mEq 20 meq PO QDAY 12/12/24 08/10/31 History tablet,extended release(part/cryst) ropinirole 0.5 mg tablet 0.5 mg PO DAILY 12/12/2410/31 History Allergies Allergies Allergy/AdvReac Type Severity Reaction Status Date / Time cefpodoxime Allergy Severe ANAPHALEXIS Verified 12/12/24 13:33 REACTION levofloxacin (Levaquin) Allergy Unknown Verified 12/12/24 13:33 nitrofurantoin Allergy Unknown Hives; Verified 12/12/24 13:33 Itching; Rash penicillin V Allergy Unknown Verified 12/12/24 13:33 lidocaine Allergy Verified 12/12/24 13:33 codeine AdvReac Mild RASH Verified 12/12/24 13:33 penicillin G AdvReac Mild RASH Verified 12/12/24 13:33 procaine AdvReac Mild itching Verified 12/12/24 13:33 Sulfa (Sulfonamide AdvReac Mild RASH Verified 12/12/24 13:33 Antibiotics) (SULFA) Labs 12/12/24 13:13 12/12/24 13:13 Labs: Laboratory WBC 7.7 X10^3/uL (3.6-10.0) 12/12/24 13:13 RBC 3.91 X10^6/uL (3.5-5.4) 12/12/24 13:13 Hgb 9.8 g/dL (12.0-16.0) L 12/12/24 13:13 Hct 30.7 % (36.0-47.0) L 12/12/24 13:13 MCV 78.5 fL (80.0-100.0) L 12/12/24 13:13 MCH 25.0 pg (27.0-34.0) L 12/12/24 13:13 MCHC 31.9 g/dL (33.0-35.0) L 12/12/24 13:13 RDW 17.7 % (11.6-16.5) H 12/12/24 13:13 Plt Count 337 X10^3/uL (150.0-450.0) 12/12/24 13:13 MPV 8.0 fL (7.4-11.0) 12/12/24 13:13 Neut % (Auto) 74.9 % (42.0-75.0) 12/12/24 13:13 Lymph % (Auto) 15.3 % (21.0-51.0) L 12/12/24 13:13 [place] % (Auto) 8.2 % (0.0-13.0) 12/12/24 13:13 Eos % (Auto) 0.6 % (0.9-2.9) L 12/12/24 13:13 Baso % (Auto) 1.0 % (0.2-1.0) 12/12/24 13:13 Neut # (Auto) 5.8 x10^3/uL (2.2-4.8) H 12/12/24 13:13 Lymph # (Auto) 1.2 X10^3/uL (1.3-2.9) L 12/12/24 13:13 [place] # (Auto) 0.6 x10^3/uL (0.3-0.8) 12/12/24 13:13 Eos # (Auto) 0.0 x10^3/uL (0.0-0.2) 12/12/24 13:13 Baso # (Auto) 0.1 X10^3/uL (0.0-0.1) 12/12/24 13:13 Absolute Nucleated RBC 0.0 /100WBC 12/12/24 13:13 PT 15.8 SECONDS (11.8-14.3) 12/12/24 13:13 INR Target Range - 12/12/24 13:13 INR 1.24 (0.8-1.3) 12/12/24 13:13 APTT 35.4 SECONDS (22.9-36.5) 12/12/24 13:13 PTT Comment - 12/12/24 13:13 Sodium 139 mmol/L (136-145) 12/12/24 13:13 Corrected Sodium TNP 12/12/24 13:13 Potassium 3.0 mmol/L (3.5-5.1) L 12/12/24 13:13 Chloride 101 mmol/L (98-107) 12/12/24 13:13 Carbon Dioxide 33.5 mmol/L (21-32) H 12/12/24 13:13 BUN 10 mg/dL (7-18) 12/12/24 13:13 Creatinine 0.87 mg/dL (0.55-1.02) 12/12/24 13:13 Est GFR (MDRD) Af Amer > 60 (>60) 12/12/24 13:13 Est GFR (MDRD) Non-Af > 60 (>60) 12/12/24 13:13 Glucose 101 mg/dL (65-99) H 12/12/24 13:13 Calcium 8.8 mg/dL (8.5-10.1) 12/12/24 13:13 Corrected Calcium 9.4 mg/dL (8.5-10.1) 12/12/24 13:13 Magnesium 1.6 mg/dL (2.0-2.9) L 12/12/24 13:13 Total Bilirubin 0.80 mg/dL (0.2-1.0) 12/12/24 13:13 AST 14 Units/L (15-37) L 12/12/24 13:13 ALT 14 Units/L (12-78) 12/12/24 13:13 Alkaline Phosphatase 83 Units/L (46-116) 12/12/24 13:13 Creatine Kinase 32 Units/L (26-192) 12/12/24 15:23 Troponin I High Sens 9.0 ng/L (4.0-60.0) 12/12/24 15:23 B-Natriuretic Peptide 351 pg/mL (0-79) H 12/12/24 13:13 Total Protein 7.0 g/dL (6.4-8.2) 12/12/24 13:13 Albumin 3.3 g/dL (3.4-5.0) L 12/12/24 13:13 Globulin 3.7 g/dL (2.5-4.5) 12/12/24 13:13 Albumin/Globulin Ratio 0.9 Ratio (1.1-2.1) L 12/12/24 13:13 Review of Systems Constitutional: Weakness Eyes: No Symptoms Reported ENT: No Symptoms Reported Respiratory: Cough, Shortness of Breath and SOB with Excertion Cardiovascular: Palpitations, Edema and Light Headedness Gastrointestinal: Nausea Genitourinary: No Symptoms Reported Musculoskeletal: Back Pain and Leg Pain Skin: No Symptoms Reported Neurological: Weakness Physical Exam Vital Signs: Vital Signs Temperature 98.1 F Temperature 98.3 F Temperature 98.1 F Pulse Rate [Right Radial] 63 Pulse Rate [Right Radial] 61 Pulse Rate [Left] 57 Pulse Rate 59 Pulse Rate 58 Pulse Rate 59 Pulse Rate 61 Pulse Rate 59 Pulse Rate 62 Pulse Rate 58 Pulse Rate 59 Pulse Rate 61 Pulse Rate 64 Pulse Rate 63 Pulse Rate 64 Pulse Rate 62 Respiratory Rate 19 Respiratory Rate 18 Respiratory Rate 15 Respiratory Rate 19 Respiratory Rate 30 Respiratory Rate 43 Respiratory Rate 32 Respiratory Rate 31 Respiratory Rate 31 Respiratory Rate 28 Respiratory Rate 22 Respiratory Rate 20 Blood Pressure [Right Arm] 140/63 Blood Pressure [Left Arm] 167/74 Blood Pressure 169/74 Blood Pressure 159/70 Blood Pressure 158/65 O2 Sat by Pulse Oximetry 96 O2 Sat by Pulse Oximetry 97 O2 Sat by Pulse Oximetry 99 O2 Sat by Pulse Oximetry 99 O2 Sat by Pulse Oximetry 97 O2 Sat by Pulse Oximetry 97 O2 Sat by Pulse Oximetry 97 O2 Sat by Pulse Oximetry 96 O2 Sat by Pulse Oximetry 96 O2 Sat by Pulse Oximetry 96 O2 Sat by Pulse Oximetry 97 O2 Sat by Pulse Oximetry 96 O2 Sat by Pulse Oximetry 97 O2 Sat by Pulse Oximetry 94 O2 Sat by Pulse Oximetry 94 O2 Sat by Pulse Oximetry 93 Oriented: Normal Eyes: Normal Nose: Normal Throat: Dry Respiratory: Diminished Throughout Cardiovascular: Edema Auscultation: Bowel Sounds: Normal Tenderness: Mild Skin: Decreased Turgur Musculoskeletal: Back:Lumbar, Swelling and Motor Deficit Psychiatric: Depression Affect: Depressed Speech Pattern: Clear and Appropriate Assessment/Plan (1) Acute exacerbation of CHF (congestive heart failure): Status: Acute Plan: ADMIT, CARDIAC MONITORING BP CONTROL, I&OS VERIFY HOME MEDICATIONS RESUME [place] CONTROL REPEAT AM CXR (2) Hypoxia: Status: Acute (3) Acute hypokalemia: Status: Acute (4) Arthritis: Status: Chronic (5) Hypertension: Qualifiers: Hypertension type: primary hypertension Qualified Code(s): I10 - Essential (primary) hypertension Status: Chronic (6) Thyroid Dysfunction: Status: None (7) Hypomagnesemia: Status: Acute (8) Acute hypokalemia: Status: Acute (9) Atrial fibrillation: Status: Acute (10) COPD (chronic obstructive pulmonary disease): Status: Acute (11) Diabetes: Status: Acute
[2024-12-12] MEDS: COLACE CAP 100 MG PO SCH (20:44)
[2024-12-12] MEDS: CORDARONE TAB 200 MG PO SCH (20:45)
[2024-12-12] MEDS: ELIQUIS PO SCH (20:45)
[2024-12-12 21:19] LABS: RETICULOCYTE % 2.87 % (0.8-2.2)
[2024-12-13 05:57] LABS: MEAN PLATELET VOLUME 8.4 fL (7.4-11.0); RED CELL DISTRIBUTION WIDTH 17.3 % (11.6-16.5)
[2024-12-13 06:15] LABS: COR CA(FOR HYPOALB) 9.4 mg/dL (8.5-10.1); CREATININE 1.01 mg/dL (0.55-1.02); eGFR NON BLACK RACES 55 (>60)
[2024-12-13] MEDS: CONSULT PHARMACY - POTASSIUM & MAGNESIUM XX SCH (07:53)
[2024-12-13] MEDS: PULMICORT NEB TX 0.5 MG NEB ONE (07:53)
[2024-12-13] MEDS: LASIX IVP SCH (08:50)
[2024-12-13] MEDS: DECADRON TAB PO SCH (08:51)
[2024-12-13] MEDS: COZAAR PO SCH (08:51)
[2024-12-13] MEDS: TOPROL XL PO SCH (08:51)
[2024-12-13] MEDS: REQUIP PO SCH (08:51)
[2024-12-13] MEDS ORDERED: PATIENT'S HOME MEDICATION (Fluticasone-Umeclidin-Vilanter [Trelegy Ellipta] 100-62.5-25 mc IN SCH (09:00)
[2024-12-13] MEDS ORDERED: K-DUR TAB 20 MEQ PO SCH (09:00)
[2024-12-13] MEDS: K-DUR TAB 20 MEQ PO SCH (10:10)
--- NOTE | 2024-12-13 13:46 | PCM.PROG ---
Progress Note Progress Note for Day of Date of Exam: 12/13/24 Subjective Subjective: PT IS 84 WF, ER ADMISSION WITH WEAKNESS, FLUID RETENTION, SOB AND CHF EXACERBATION. PT RECENTLY HAD A CARDIOVERSION FOR TREATMENT OF AFIB AND CURRENTLY IN SR. PT RATE CONTROLLED WITH BB. DILTIAZEM D/C AND LOSARTAN 50MG PO FOR BP CONTROL. LASIX 40MG IV BID X 2 DOSES WITH STRICT I&OS CONTINUED TODAY AND WILL REPEAT AM CXR. PLAN TO CONTINUE WITH ELECTROLYTE REPLACMENT AND CARDIAC MONITORING. Past Medical Family Social History Allergies: Allergies cefpodoxime Allergy (Severe, Verified 12/12/24 13:33) ANAPHALEXIS REACTION Throat was swelling closed levofloxacin (Levaquin) Allergy (Unknown, Verified 12/12/24 13:33) Reason: Drug allergy nitrofurantoin Allergy (Unknown, Verified 12/12/24 13:33) Hives; Itching; Rash Reason: Drug allergy penicillin V Allergy (Unknown, Verified 12/12/24 13:33) Reason: Drug allergy lidocaine Allergy (Verified 12/12/24 13:33) codeine Adverse Reaction (Mild, Verified 12/12/24 13:33) RASH penicillin G Adverse Reaction (Mild, Verified 12/12/24 13:33) RASH procaine Adverse Reaction (Mild, Verified 12/12/24 13:33) itching Sulfa (Sulfonamide Antibiotics) (SULFA) Adverse Reaction (Mild, Verified 12/12/24 13:33) RASH Vital Signs and I&O's Vital Signs: Vital Signs Temperature 97.5 F Temperature 97.8 F Pulse Rate [Right Radial] 61 Pulse Rate [Right Radial] 62 Pulse Rate 62 Respiratory Rate 22 Respiratory Rate 19 Blood Pressure [Right Arm] 130/61 Blood Pressure [Right Arm] 145/65 O2 Sat by Pulse Oximetry 92 O2 Sat by Pulse Oximetry 92 O2 Sat by Pulse Oximetry 92 Intake and Output: Intake & Output 12/11/24 12/12/24 12/13/24 12/14/24 11:59 11:59 11:59 11:59 Intake Total 290 / 290 Balance 290 / 290 Physical Exam Oriented: Normal Eyes: Normal Nose: Normal Throat: Dry Respiratory: Diminished Cardiovascular: Edema Auscultation: Bowel Sounds: Normal Tenderness: Mild Skin: Decreased Turgur Musculoskeletal: Back:Lumbar, Swelling and Motor Deficit Psychiatric: Depression Affect: Depressed Speech Pattern: Clear and Unclear Laboratory and Diagnostics 12/13/24 05:25 12/13/24 05:25 Labs: Laboratory WBC 8.3 X10^3/uL (3.6-10.0) 12/13/24 05:25 RBC 3.81 X10^6/uL (3.5-5.4) 12/13/24 05:25 Hgb 9.5 g/dL (12.0-16.0) L 12/13/24 05:25 Hct 29.8 % (36.0-47.0) L 12/13/24 05:25 MCV 78.2 fL (80.0-100.0) L 12/13/24 05:25 MCH 25.0 pg (27.0-34.0) L 12/13/24 05:25 MCHC 32.0 g/dL (33.0-35.0) L 12/13/24 05:25 RDW 17.3 % (11.6-16.5) H 12/13/24 05:25 Plt Count 331 X10^3/uL (150.0-450.0) 12/13/24 05:25 MPV 8.4 fL (7.4-11.0) 12/13/24 05:25 Neut % (Auto) 75.4 % (42.0-75.0) H 12/13/24 05:25 Lymph % (Auto) 14.3 % (21.0-51.0) L 12/13/24 05:25 [place] % (Auto) 8.5 % (0.0-13.0) 12/13/24 05:25 Eos % (Auto) 0.8 % (0.9-2.9) L 12/13/24 05:25 Baso % (Auto) 1.0 % (0.2-1.0) 12/13/24 05:25 Neut # (Auto) 6.3 x10^3/uL (2.2-4.8) H 12/13/24 05:25 Lymph # (Auto) 1.2 X10^3/uL (1.3-2.9) L 12/13/24 05:25 [place] # (Auto) 0.7 x10^3/uL (0.3-0.8) 12/13/24 05:25 Eos # (Auto) 0.1 x10^3/uL (0.0-0.2) 12/13/24 05:25 Baso # (Auto) 0.1 X10^3/uL (0.0-0.1) 12/13/24 05:25 Absolute Nucleated RBC 0.1 /100WBC 12/13/24 05:25 Absolute Retic 0.1127 10^6/uL 12/12/24 13:13 Percent Retic 2.87 % (0.8-2.2) H 12/12/24 13:13 PT 15.8 SECONDS (11.8-14.3) 12/12/24 13:13 INR Target Range - 12/12/24 13:13 INR 1.24 (0.8-1.3) 12/12/24 13:13 APTT 35.4 SECONDS (22.9-36.5) 12/12/24 13:13 PTT Comment - 12/12/24 13:13 Sodium 140 mmol/L (136-145) 12/13/24 05:25 Corrected Sodium TNP 12/13/24 05:25 Potassium 4.0 mmol/L (3.5-5.1) 12/13/24 05:25 Chloride 103 mmol/L (98-107) 12/13/24 05:25 Carbon Dioxide 33.3 mmol/L (21-32) H 12/13/24 05:25 BUN 10 mg/dL (7-18) 12/13/24 05:25 Creatinine 1.01 mg/dL (0.55-1.02) 12/13/24 05:25 Est GFR (MDRD) Af Amer > 60 (>60) 12/13/24 05:25 Est GFR (MDRD) Non-Af 55 (>60) L 12/13/24 05:25 Glucose 110 mg/dL (65-99) H 12/13/24 05:25 POC Glucose (mg/dL) 110 mg/dL (65-99) H 12/13/24 10:34 Calcium 8.7 mg/dL (8.5-10.1) 12/13/24 05:25 Corrected Calcium 9.4 mg/dL (8.5-10.1) 12/13/24 05:25 Magnesium 1.8 mg/dL (2.0-2.9) L 12/13/24 05:25 Iron 17 ug/dL (50-175) L 12/12/24 21:05 TIBC 282 ug/dL (250-450) 12/12/24 21:05 Transferrin 229 mg/dL (202-364) 12/12/24 21:05 Ferritin 34 ng/mL (8-252) 12/12/24 21:05 Total Bilirubin 0.70 mg/dL (0.2-1.0) 12/13/24 05:25 AST 13 Units/L (15-37) L 12/13/24 05:25 ALT 12 Units/L (12-78) 12/13/24 05:25 Alkaline Phosphatase 79 Units/L (46-116) 12/13/24 05:25 Creatine Kinase 32 Units/L (26-192) 12/12/24 15:23 Troponin I High Sens 8.8 ng/L (4.0-60.0) 12/12/24 21:05 B-Natriuretic Peptide 351 pg/mL (0-79) H 12/12/24 13:13 Total Protein 6.6 g/dL (6.4-8.2) 12/13/24 05:25 Albumin 3.1 g/dL (3.4-5.0) L 12/13/24 05:25 Globulin 3.5 g/dL (2.5-4.5) 12/13/24 05:25 Albumin/Globulin Ratio 0.9 Ratio (1.1-2.1) L 12/13/24 05:25 Vitamin B12 699 pg/mL (193-986) 12/12/24 21:05 Folate 15.3 ng/mL (>8.6) 12/12/24 21:05 Plan (1) Acute exacerbation of CHF (congestive heart failure): Status: Acute Plan: CARDIAC MONITORING CONTINUE IV LASIX DC DILTIAZEM, START LOSARTAN 50MG PO DAILY BP CONTROL, I&OS VERIFY HOME MEDICATIONS RESUME [place]URT BS CONTROL REPEAT AM CXR (2) Hypoxia: Status: Acute (3) Acute hypokalemia: Status: Acute (4) Arthritis: Status: Chronic (5) Hypertension: Status: Chronic Qualifiers: Hypertension type: primary hypertension Qualified Code(s): I10 - Essential (primary) hypertension (6) Thyroid Dysfunction: Status: None (7) Hypomagnesemia: Status: Acute (8) Atrial fibrillation: Status: Acute (9) COPD (chronic obstructive pulmonary disease): Status: Acute (10) Diabetes: Status: Acute
[2024-12-13] MEDS: ULTRAM PO PRN (16:59)
[2024-12-13] MEDS: NYSTATIN SUSP PO SCH (20:36)
[2024-12-14 05:49] LABS: MEAN PLATELET VOLUME 8.1 fL (7.4-11.0); RED CELL DISTRIBUTION WIDTH 17.7 % (11.6-16.5)
[2024-12-14 06:07] LABS: COR CA(FOR HYPOALB) 9.6 mg/dL (8.5-10.1); CREATININE 1.02 mg/dL (0.55-1.02); eGFR NON BLACK RACES 55 (>60)
[2024-12-14] MEDS ORDERED: CONSULT PHARMACY - POTASSIUM & MAGNESIUM XX SCH (07:00)
--- NOTE | 2024-12-14 07:21 | RAD ---
EXAM: Portable AP chest HISTORY: CHF renal disease asthma COPD COMPARISON: 12/12/2024 FINDINGS: Similar cardiomegaly, central pulmonary vascular dilatation and bilateral infiltrate/edema. No additional consolidation, complicating extrapulmonary air or developing large pleural effusion. IMPRESSION: CHF, no change. THIS IS AN ELECTRONICALLY VERIFIED FINAL REPORT 12/14/2024 7:17 AM - Electronically signed by Jose Young MD
--- NOTE | 2024-12-14 08:52 | RAD ---
EXAM: CHEST, 1 VIEW HISTORY: CHF, EXACERBATION ; ASTHMA, COPD, CHF, DM, GERD, HTN, RENAL DISEASE, AFIB, TIA COMPARISON: 12/13/2024 TECHNIQUE: AP portable FINDINGS: Stable cardiac silhouette. Pulmonary vascular engorgement. Hazy bilateral airspace opacities are similar to comparison. No large pleural effusion or visible pneumothorax. IMPRESSION: Stable pulmonary edema. THIS IS AN ELECTRONICALLY VERIFIED FINAL REPORT 12/14/2024 8:49 AM - Electronically signed by Williams Barney MD
[2024-12-14] MEDS: MAG-OX TAB PO SCH (10:24)
[2024-12-14] MEDS: LASIX IVP SCH (13:44)
[2024-12-14] MEDS: K-DUR TAB 20 MEQ PO SCH (13:44)
[2024-12-14] MEDS: NORCO 5/325 MG TAB PO PRN (19:00)
[2024-12-15 06:05] LABS: MEAN PLATELET VOLUME 8.6 fL (7.4-11.0); RED CELL DISTRIBUTION WIDTH 17.3 % (11.6-16.5)
[2024-12-15 06:20] LABS: COR CA(FOR HYPOALB) 9.8 mg/dL (8.5-10.1); COR NA(FOR HYPERGLY) 139 mmol/L (136-145); CREATININE 1.09 mg/dL (0.55-1.02); eGFR NON BLACK RACES 51 (>60)
--- NOTE | 2024-12-15 10:40 | PCM.PROG ---
Progress Note Progress Note for Day of Date of Exam: 12/15/24 Subjective Subjective: Patient seen at bedside, no acute events overnight. She is feeling better today. Her shortness of breath and edema has improved. She continues to be weak and not able to ambulate. She is considering swing bed placement. CM working on that. Labs/imaging reviewed: - WBC 8.5 hemoglobin 9.9 platelet 340 potassium 4.4 creatinine 1.09 - Chest x-ray: Stable edema Plan: Continue IV Lasix, monitor I's and O's and daily weight. Continue other home medications. Replace electrolytes as per protocol. Physical therapy as tolerated. Advised patient to sit in the recliner today. CM working on swing bed placement. Monitor a.m. labs and imaging. Past Medical Family Social History Allergies: Allergies cefpodoxime Allergy (Severe, Verified 12/12/24 13:33) ANAPHALEXIS REACTION Throat was swelling closed levofloxacin (Levaquin) Allergy (Unknown, Verified 12/12/24 13:33) Reason: Drug allergy nitrofurantoin Allergy (Unknown, Verified 12/12/24 13:33) Hives; Itching; Rash Reason: Drug allergy penicillin V Allergy (Unknown, Verified 12/12/24 13:33) Reason: Drug allergy lidocaine Allergy (Verified 12/12/24 13:33) codeine Adverse Reaction (Mild, Verified 12/12/24 13:33) RASH penicillin G Adverse Reaction (Mild, Verified 12/12/24 13:33) RASH procaine Adverse Reaction (Mild, Verified 12/12/24 13:33) itching Sulfa (Sulfonamide Antibiotics) (SULFA) Adverse Reaction (Mild, Verified 12/12/24 13:33) RASH Vital Signs and I&O's Vital Signs: Vital Signs Temperature 97.8 F Temperature 97.8 F Pulse Rate [Right Radial] 61 Pulse Rate [Right Radial] 65 Pulse Rate 57 Respiratory Rate 19 Respiratory Rate 19 Blood Pressure [Right Arm] 148/70 Blood Pressure [Right Arm] 120/63 O2 Sat by Pulse Oximetry 97 O2 Sat by Pulse Oximetry 97 O2 Sat by Pulse Oximetry 96 Intake and Output: Intake & Output 12/12/24 12/13/24 12/14/24 12/15/24 23:59 23:59 23:59 23:59 Intake Total 190 / 190 1500 / 1500 810 / 810 75 / 75 Output Total 1000 / 1000 1560 / 1560 Balance 190 / 190 500 / 500 -750 / -750 75 / 75 Physical Exam Oriented: Normal Eyes: Normal Nose: Normal Throat: Dry Respiratory: Diminished Cardiovascular: Edema Auscultation: Bowel Sounds: Normal Palpation: Normal Tenderness: Normal Skin: Decreased Turgur Musculoskeletal: Back:Lumbar, Swelling and Motor Deficit Psychiatric: Depression Affect: Depressed Speech Pattern: Clear Laboratory and Diagnostics 12/15/24 05:31 12/15/24 05:31 Labs: Laboratory WBC 8.5 X10^3/uL (3.6-10.0) 12/15/24 05:31 RBC 3.88 X10^6/uL (3.5-5.4) 12/15/24 05:31 Hgb 9.9 g/dL (12.0-16.0) L 12/15/24 05:31 Hct 30.2 % (36.0-47.0) L 12/15/24 05:31 MCV 77.7 fL (80.0-100.0) L 12/15/24 05:31 MCH 25.4 pg (27.0-34.0) L 12/15/24 05:31 MCHC 32.7 g/dL (33.0-35.0) L 12/15/24 05:31 RDW 17.3 % (11.6-16.5) H 12/15/24 05:31 Plt Count 340 X10^3/uL (150.0-450.0) 12/15/24 05:31 MPV 8.6 fL (7.4-11.0) 12/15/24 05:31 Neut % (Auto) 89.6 % (42.0-75.0) H 12/15/24 05:31 Lymph % (Auto) 7.2 % (21.0-51.0) L 12/15/24 05:31 [place] % (Auto) 3.2 % (0.0-13.0) 12/15/24 05:31 Eos % (Auto) 0.0 % (0.9-2.9) L 12/15/24 05:31 Baso % (Auto) 0 % (0.2-1.0) L 12/15/24 05:31 Neut # (Auto) 7.6 x10^3/uL (2.2-4.8) H 12/15/24 05:31 Lymph # (Auto) 0.6 X10^3/uL (1.3-2.9) L 12/15/24 05:31 [place] # (Auto) 0.3 x10^3/uL (0.3-0.8) 12/15/24 05:31 Eos # (Auto) 0.0 x10^3/uL (0.0-0.2) 12/15/24 05:31 Baso # (Auto) 0.0 X10^3/uL (0.0-0.1) 12/15/24 05:31 Absolute Nucleated RBC 0.1 /100WBC 12/15/24 05:31 Absolute Retic 0.1127 10^6/uL 12/12/24 13:13 Percent Retic 2.87 % (0.8-2.2) H 12/12/24 13:13 PT 15.8 SECONDS (11.8-14.3) 12/12/24 13:13 INR Target Range - 12/12/24 13:13 INR 1.24 (0.8-1.3) 12/12/24 13:13 APTT 35.4 SECONDS (22.9-36.5) 12/12/24 13:13 PTT Comment - 12/12/24 13:13 Sodium 137 mmol/L (136-145) 12/15/24 05:31 Corrected Sodium 139 mmol/L (136-145) 12/15/24 05:31 Potassium 4.4 mmol/L (3.5-5.1) 12/15/24 05:31 Chloride 100 mmol/L (98-107) 12/15/24 05:31 Carbon Dioxide 31.0 mmol/L (21-32) 12/15/24 05:31 BUN 18 mg/dL (7-18) 12/15/24 05:31 Creatinine 1.09 mg/dL (0.55-1.02) H 12/15/24 05:31 Est GFR (MDRD) Af Amer > 60 (>60) 12/15/24 05:31 Est GFR (MDRD) Non-Af 51 (>60) L 12/15/24 05:31 Glucose 170 mg/dL (65-99) H 12/15/24 05:31 POC Glucose (mg/dL) 164 mg/dL (65-99) H 12/15/24 05:05 Calcium 9.1 mg/dL (8.5-10.1) 12/15/24 05:31 Corrected Calcium 9.8 mg/dL (8.5-10.1) 12/15/24 05:31 Magnesium 2.0 mg/dL (2.0-2.9) 12/15/24 05:31 Iron 17 ug/dL (50-175) L 12/12/24 21:05 TIBC 282 ug/dL (250-450) 12/12/24 21:05 Transferrin 229 mg/dL (202-364) 12/12/24 21:05 Ferritin 34 ng/mL (8-252) 12/12/24 21:05 Total Bilirubin 0.50 mg/dL (0.2-1.0) 12/15/24 05:31 AST 10 Units/L (15-37) L 12/15/24 05:31 ALT 16 Units/L (12-78) 12/15/24 05:31 Alkaline Phosphatase 87 Units/L (46-116) 12/15/24 05:31 Creatine Kinase 32 Units/L (26-192) 12/12/24 15:23 Troponin I High Sens 8.8 ng/L (4.0-60.0) 12/12/24 21:05 B-Natriuretic Peptide 138 pg/mL (0-79) H 12/14/24 05:27 Total Protein 6.9 g/dL (6.4-8.2) 12/15/24 05:31 Albumin 3.1 g/dL (3.4-5.0) L 12/15/24 05:31 Globulin 3.8 g/dL (2.5-4.5) 12/15/24 05:31 Albumin/Globulin Ratio 0.8 Ratio (1.1-2.1) L 12/15/24 05:31 Vitamin B12 699 pg/mL (193-986) 12/12/24 21:05 Folate 15.3 ng/mL (>8.6) 12/12/24 21:05 Stl Occult Blood (IFOB) Negative (NEGATIVE) 12/13/24 16:45 Plan (1) Acute exacerbation of CHF (congestive heart failure): Status: Acute (2) Hypoxia: Status: Acute (3) Acute hypokalemia: Status: Acute (4) Arthritis: Status: Chronic (5) Hypertension: Status: Chronic Qualifiers: Hypertension type: primary hypertension Qualified Code(s): I10 - Essential (primary) hypertension (6) Thyroid Dysfunction: Status: None (7) Hypomagnesemia: Status: Acute (8) Atrial fibrillation: Status: Chronic (9) COPD (chronic obstructive pulmonary disease): Status: Chronic (10) Diabetes: Status: Chronic
[2024-12-15] MEDS: LIORESAL PO PRN (14:33)
[2024-12-16 05:29] LABS: MEAN PLATELET VOLUME 8.2 fL (7.4-11.0); RED CELL DISTRIBUTION WIDTH 17.5 % (11.6-16.5)
[2024-12-16 05:39] LABS: COR CA(FOR HYPOALB) 9.7 mg/dL (8.5-10.1); CREATININE 1.12 mg/dL (0.55-1.02); eGFR NON BLACK RACES 49 (>60)
--- NOTE | 2024-12-16 10:41 | PCM.PROG ---
Progress Note Progress Note for Day of Date of Exam: 12/16/24 Subjective Subjective: Patient seen at bedside, no acute events overnight. She is feeling better today. Her shortness of breath and edema has improved. She had good UOP with IV lasix. She does report generalized weakness. She is considering swing bed placement. CM working on that. Labs/imaging reviewed: - WBC 13.7 hemoglobin 9.3 platelet 331 potassium 4.5 creatinine 1.12 - Chest x-ray: Stable edema Plan: Continue IV Lasix, monitor I's and O's and daily weight. Continue other home medications. Replace electrolytes as per protocol. Physical therapy as tolerated. Advised patient to sit in the recliner today. CM working on swing bed placement. Monitor a.m. labs and imaging. Past Medical Family Social History Allergies: Allergies cefpodoxime Allergy (Severe, Verified 12/12/24 13:33) ANAPHALEXIS REACTION Throat was swelling closed levofloxacin (Levaquin) Allergy (Unknown, Verified 12/12/24 13:33) Reason: Drug allergy nitrofurantoin Allergy (Unknown, Verified 12/12/24 13:33) Hives; Itching; Rash Reason: Drug allergy penicillin V Allergy (Unknown, Verified 12/12/24 13:33) Reason: Drug allergy lidocaine Allergy (Verified 12/12/24 13:33) codeine Adverse Reaction (Mild, Verified 12/12/24 13:33) RASH penicillin G Adverse Reaction (Mild, Verified 12/12/24 13:33) RASH procaine Adverse Reaction (Mild, Verified 12/12/24 13:33) itching Sulfa (Sulfonamide Antibiotics) (SULFA) Adverse Reaction (Mild, Verified 12/12/24 13:33) RASH Vital Signs and I&O's Vital Signs: Vital Signs Temperature 98.0 F Temperature 97.9 F Pulse Rate [Right Radial] 60 Pulse Rate [Right Radial] 61 Pulse Rate 58 Respiratory Rate 21 Respiratory Rate 21 Blood Pressure [Right Arm] 165/70 Blood Pressure [Right Arm] 121/62 O2 Sat by Pulse Oximetry 94 O2 Sat by Pulse Oximetry 96 O2 Sat by Pulse Oximetry 96 Intake and Output: Intake & Output 12/13/24 12/14/24 12/15/24 12/16/24 23:59 23:59 23:59 23:59 Intake Total 1500 / 1500 810 / 810 1195 / 1195 100 / 100 Output Total 1000 / 1000 1560 / 1560 1800 / 1800 200 / 200 Balance 500 / 500 -750 / -750 -605 / -605 -100 / -100 Physical Exam Oriented: Normal Eyes: Normal Nose: Normal Throat: Dry Respiratory: Diminished Cardiovascular: Normal Auscultation: Bowel Sounds: Normal Palpation: Normal Tenderness: Normal Skin: Decreased Turgur Musculoskeletal: Back:Lumbar, Swelling and Motor Deficit Psychiatric: Normal Affect: Normal Speech Pattern: Clear Laboratory and Diagnostics 12/16/24 05:15 12/16/24 05:15 Labs: Laboratory WBC 13.7 X10^3/uL (3.6-10.0) H 12/16/24 05:15 RBC 3.77 X10^6/uL (3.5-5.4) 12/16/24 05:15 Hgb 9.3 g/dL (12.0-16.0) L 12/16/24 05:15 Hct 29.3 % (36.0-47.0) L 12/16/24 05:15 MCV 77.6 fL (80.0-100.0) L 12/16/24 05:15 MCH 24.7 pg (27.0-34.0) L 12/16/24 05:15 MCHC 31.8 g/dL (33.0-35.0) L 12/16/24 05:15 RDW 17.5 % (11.6-16.5) H 12/16/24 05:15 Plt Count 331 X10^3/uL (150.0-450.0) 12/16/24 05:15 MPV 8.2 fL (7.4-11.0) 12/16/24 05:15 Neut % (Auto) 83.6 % (42.0-75.0) H 12/16/24 05:15 Lymph % (Auto) 9.6 % (21.0-51.0) L 12/16/24 05:15 [place] % (Auto) 6.4 % (0.0-13.0) 12/16/24 05:15 Eos % (Auto) 0.2 % (0.9-2.9) L 12/16/24 05:15 Baso % (Auto) 0.2 % (0.2-1.0) 12/16/24 05:15 Neut # (Auto) 11.4 x10^3/uL (2.2-4.8) H 12/16/24 05:15 Lymph # (Auto) 1.3 X10^3/uL (1.3-2.9) 12/16/24 05:15 [place] # (Auto) 0.9 x10^3/uL (0.3-0.8) H 12/16/24 05:15 Eos # (Auto) 0.0 x10^3/uL (0.0-0.2) 12/16/24 05:15 Baso # (Auto) 0.0 X10^3/uL (0.0-0.1) 12/16/24 05:15 Absolute Nucleated RBC 0.1 /100WBC 12/16/24 05:15 Absolute Retic 0.1127 10^6/uL 12/12/24 13:13 Percent Retic 2.87 % (0.8-2.2) H 12/12/24 13:13 PT 15.8 SECONDS (11.8-14.3) 12/12/24 13:13 INR Target Range - 12/12/24 13:13 INR 1.24 (0.8-1.3) 12/12/24 13:13 APTT 35.4 SECONDS (22.9-36.5) 12/12/24 13:13 PTT Comment - 12/12/24 13:13 Sodium 136 mmol/L (136-145) 12/16/24 05:15 Corrected Sodium TNP 12/16/24 05:15 Potassium 4.5 mmol/L (3.5-5.1) 12/16/24 05:15 Chloride 100 mmol/L (98-107) 12/16/24 05:15 Carbon Dioxide 34.9 mmol/L (21-32) H 12/16/24 05:15 BUN 25 mg/dL (7-18) H 12/16/24 05:15 Creatinine 1.12 mg/dL (0.55-1.02) H 12/16/24 05:15 Est GFR (MDRD) Af Amer 59 (>60) 12/16/24 05:15 Est GFR (MDRD) Non-Af 49 (>60) L 12/16/24 05:15 Glucose 105 mg/dL (65-99) H 12/16/24 05:15 POC Glucose (mg/dL) 106 mg/dL (65-99) H 12/16/24 05:23 Calcium 8.9 mg/dL (8.5-10.1) 12/16/24 05:15 Corrected Calcium 9.7 mg/dL (8.5-10.1) 12/16/24 05:15 Magnesium 2.0 mg/dL (2.0-2.9) 12/15/24 05:31 Iron 17 ug/dL (50-175) L 12/12/24 21:05 TIBC 282 ug/dL (250-450) 12/12/24 21:05 Transferrin 229 mg/dL (202-364) 12/12/24 21:05 Ferritin 34 ng/mL (8-252) 12/12/24 21:05 Total Bilirubin 0.40 mg/dL (0.2-1.0) 12/16/24 05:15 AST 13 Units/L (15-37) L 12/16/24 05:15 ALT 12 Units/L (12-78) 12/16/24 05:15 Alkaline Phosphatase 75 Units/L (46-116) 12/16/24 05:15 Creatine Kinase 32 Units/L (26-192) 12/12/24 15:23 Troponin I High Sens 8.8 ng/L (4.0-60.0) 12/12/24 21:05 B-Natriuretic Peptide 138 pg/mL (0-79) H 12/14/24 05:27 Total Protein 6.3 g/dL (6.4-8.2) L 12/16/24 05:15 Albumin 3.0 g/dL (3.4-5.0) L 12/16/24 05:15 Globulin 3.3 g/dL (2.5-4.5) 12/16/24 05:15 Albumin/Globulin Ratio 0.9 Ratio (1.1-2.1) L 12/16/24 05:15 Vitamin B12 699 pg/mL (193-986) 12/12/24 21:05 Folate 15.3 ng/mL (>8.6) 12/12/24 21:05 Stl Occult Blood (IFOB) Negative (NEGATIVE) 12/13/24 16:45 Plan (1) Acute exacerbation of CHF (congestive heart failure): Status: Acute (2) Hypoxia: Status: Acute (3) Acute hypokalemia: Status: Acute (4) Arthritis: Status: Chronic (5) Hypertension: Status: Chronic Qualifiers: Hypertension type: primary hypertension Qualified Code(s): I10 - Essential (primary) hypertension (6) Thyroid Dysfunction: Status: None (7) Hypomagnesemia: Status: Acute (8) Atrial fibrillation: Status: Chronic (9) COPD (chronic obstructive pulmonary disease): Status: Chronic (10) Diabetes: Status: Chronic
[2024-12-16 13:23] LABS: BLOOD/HEMOGLOBIN,URINE 1+ (NEGATIVE); LEUKOCYTE ESTERASE ,URINE 3+ (NEGATIVE); NITRITES,URINE NEGATIVE (NEGATIVE)
[2024-12-16 13:24] LABS: APPEARANCE,URINE CLEAR (CLEAR)
[2024-12-16 13:28] LABS: SQUAMOUS EPITHELIAL CELL,UR RARE /HPF (NEGATIVE)
[2024-12-16] MEDS: ROCEPHIN VIAL 1 GRAM 1 G in NS 100 ML IV 100 ML IV SCH (16:22)
[2024-12-17 04:34] VITALS: PULSE 60; RESP 18
[2024-12-17 05:34] LABS: MEAN PLATELET VOLUME 8.3 fL (7.4-11.0); RED CELL DISTRIBUTION WIDTH 17.5 % (11.6-16.5)
[2024-12-17 05:54] LABS: COR CA(FOR HYPOALB) 9.6 mg/dL (8.5-10.1); CREATININE 1.24 mg/dL (0.55-1.02); eGFR NON BLACK RACES 44 (>60)
[2024-12-17 07:50] VITALS: BP 109/55; TEMP 97.6; O2SAT 94
== END 2024-12-17 08:59 | disposition swing bed (61) ==
LOC: ER 12:50 → MED/SURG 12:50
PROVIDERS: ADMIT Internal Medicine; ATTEND Internal Medicine
DX: E78.5 Hyperlipidemia, unspecified; R26.89 Other abnormalities of gait and mobility; J44.9 Chronic obstructive pulmonary disease, unspecified; F41.8 Other specified anxiety disorders; I11.0 Hypertensive heart disease with heart failure; K21.9 Gastro-esophageal reflux disease without esophagitis; M19.90 Unspecified osteoarthritis, unspecified site; R94.31 Abnormal electrocardiogram [ECG] [EKG]; Z16.19 Resistance to other specified beta lactam antibiotics; Z16.23 Resistance to quinolones and fluoroquinolones; R06.02 Shortness of breath; R07.89 Other chest pain; E87.6 Hypokalemia; R00.1 Bradycardia, unspecified; R53.1 Weakness; Z16.11 Resistance to penicillins; R09.02 Hypoxemia; R62.7 Adult failure to thrive; B96.89 Other specified bacterial agents as the cause of diseases classified elsewhere; I48.19 Other persistent atrial fibrillation; E03.8 Other specified hypothyroidism; Z79.01 Long term (current) use of anticoagulants; E11.65 Type 2 diabetes mellitus with hyperglycemia; I50.89 Other heart failure; Z16.29 Resistance to other single specified antibiotic; E83.42 Hypomagnesemia; R60.0 Localized edema

== ENCOUNTER 2024-12-17 09:00 | Inpatient (IN) ==
[2024-12-17] MEDS ORDERED: NORCO 5/325 MG TAB PO PRN (10:19)
[2024-12-17] MEDS ORDERED: TYLENOL 325 MG TAB PO PRN (10:19)
[2024-12-17] MEDS: LASIX PO SCH (10:41)
[2024-12-17 10:55] VITALS: BMI 34.9
[2024-12-17] MEDS: NYSTATIN SUSP PO SCH (13:23)
[2024-12-17] MEDS: DUONEB 0.5 MG/3 MG (3 mL) NEB SCH (13:59)
--- NOTE | 2024-12-17 15:05 | PT/OTEVAL ---
PT/OT OBJECTIVES - HISTORY Prescription: OT Consult Diagnosis: Swingbed, deconditioning , CHF Precautions: Fall risk PMH: Arthritis, Asthma, Diabetes, Dyslipidemia, GERD, Hypertension and Hypothyroidism Prior Level of Function: Assistance Required Other: Per pt report, she lives with her daughter in a 1 story home. She uses a ramp to get inside. Pt uses a walker for functional mobility. She reports no pain at this time. Pt states that she does not wear oxygen at home. At this time, she has nurses who come to her house 2x/week. History of Present Illness: Pt is a 84 year old female who was admitted to [facility] after presenting to the ER with c/o swelling all over and increased SOB and weakness. Pt has a hx of A-Fib and on skilled nursing anticoagulant therapy with eliquis, reports recent cardioversion. Pt c/o increase SOB over the past week and was admitted for evaluation and tx of acute illness. Pt is unable to safely return at this time and will be changed to swingbed to participate with skilled therapy to improve (I) and safety needed for a safe return home. - COGNITION Mental Status: Alert, Oriented Communication Status: Verbal Ability to Follow Directions: 2 Step Affect: Calm - PAIN No signs of pain Pain Scale: No Pain Comments: No reports of pain at time of evaluation Generalized Comments: Head Comments: Reports mild headache - BED MOBILITY Rolling: Minimal - TRANSFERS Supine to Sit: Minimal Sit to Stand: Minimal - ADL'S Upper Body ADL: Moderate Lower Body ADL: Maximum Toileting: Maximum Toileting Comment: uses a purewick Bathing: Maximum - BALANCE Dynamic Sitting: Good Standing: Fair Static Sitting: Good Standing: Good - NEUROMOTOR/SENSATION Fermin. Upper Ext Sensation: WFL Coordination: WFL Fermin. Lower Ext Sensation: WFL Coordination: WFL - ROM Bilateral UE ROM: WFL - STRENGTH Bilateral LE Strength Number: 3 Other comment: 3+/5 Bilateral UE Strength Number: 3 Other comment: 3+/5 - TREATMENT Date: 12/17/24 Time: 10:30 Treatment Type: Evaluation Treatment Provided: Therapeutic Activities - TOTAL TREATMENT TIME Total Time: 30 - POST ASSESSMENT Post Assessment Comment: Pt was seen for skilled OT to assess CLOF and transition to swingbed. Pt was agreeable to particpate with skilled OT. Pt bed mobility with min A. Pt does not have clothing at this time, however stated that her family will be changing breif with max A while standing. Functionally AMB with RW and touch A. Pt fatigues easily. Pt agreeable to sit up in recliner. Pt had all needs met and call light within reach. Pt demonstrates deficits with ADLs and ADL functional mobility. Pt would benefit from skilled OT services to address ADL deficits to facilitate highest level of ADL function needed for safe d/c planning. - EXIT DISPOSITION Exit Position: CHAIR Call light in reach: Yes PT/OT ASSESSMENT - OT Problem List: Decreased Mobility ADL's, Decreased Safety Aware, Decreased Dressing, Decreased Bathing, Decreased Grooming, Decreased UE Strength - OT GOALS [employer] Work[employer] Goals Days: 20 Mobility for ADL's: Pt to improve functional ADL transfers with LRAD and set up A Safety Awareness: Pt to improve safety to G Dressing: Pt to improve LB dressing to supv A with AE PRN Bathing: Pt to improve overall bathing with supv A Grooming: Pt to improve grooming/oral care with set up A Upper Ext. Strength/Use: Pt to improve MMT in BUE by 1 grade Short Term Goals Days: 10 Mobility for ADL's: Pt to improve functional ADL transfers with LRAD and supv A Safety Awareness: Pt to improve safety to F+ Dressing: Pt to improve UB dressing to supv A Bathing: Pt to improve overall bathing with min A Grooming: Pt to improve grooming/oral care with supv A Upper Ext. Strength/Use: - Other: Pt to improve FAT to G - PATIENT GOALS Patient/Family Goals: To get better and go home Rehabilitation Potential: Good to meet stated goals Justification for Potential: To facilitate highest level of ADL function needed for safe d/c planning Weakness and Barriers: Decreased Participation - PLAN Suggested Treatment Plan: Therapeutic Activity, Self Care Training, Neuro Re- education, Therapeutic Ex with HEP, Patient Education - FREQUENCY AND DURATION OT: 5x a week x hospital stay Expected Continuation of Care at Discharge: Skilled Care Facility
--- NOTE | 2024-12-17 15:40 | PT/OTEVAL ---
PT/OT OBJECTIVES - HISTORY Prescription: PT Consult Diagnosis: Deconditioning, CHF Precautions: Fall Risk PMH: Arthritis, Asthma, Diabetes, Dyslipidemia, GERD, Hypertension and Hypothyroidism Prior Level of Function: Assistance Required Other: Per patient report- she resides at home with daughter in single story home with ramp to enter. Was receiving home health services with aide assist 2x per week. Pt able to perform mobility tasks with supervision and using FWW within home and supervision. Pt reports aide was assisting with bathing tasks. DME: [facility]WW History of Present Illness: Ms. Galloway was admitted to [facility] with CHF exacerbation and had a decline from PLOF due to deconditioning. Pt agreeable to transition to swing bed rehab program to address deficits and facilitate highest level of function and safe discharge planning. - COGNITION Mental Status: Alert, Oriented, Name, Date, Place, Purpose Communication Status: Verbal Ability to Follow Directions: 1 Step - PAIN No signs of pain Pain Scale: No Pain Comments: No reports of pain at time of evaluation Generalized Comments: - BED MOBILITY Rolling: Minimal - TRANSFERS Supine to Sit: Minimal Sit to Stand: Minimal Sit or Stand Pivot: Minimal Toileting: Minimal Safety (requires cues for:): Hand Placement Precaution - BALANCE Dynamic Sitting: Good Standing: Poor Static Sitting: Good Standing: Fair Balance Comment: Fair- - NEUROMOTOR/SENSATION Fermin. Lower Ext Sensation: WFL Coordination: WFL Proprioception: WFL - ROM Bilateral LE ROM: WFL Muscle Tone: WFL - STRENGTH Bilateral LE Strength Number: 3 Other comment: 3+/5 - GAIT Pt. ambulates how many feet?: 35 Amount of Assistance Required: Minimal Type of Assistive Device: Rolling Walker Comments: Easily fatigues - TREATMENT Date: 12/17/24 Time: 13:45 Treatment Type: Evaluation Treatment Provided: Gait, Therapeutic Activities - TOTAL TREATMENT TIME Total Time: 45 - POST ASSESSMENT Post Assessment Comment: Pt was found supine in bed in room and agreeable to participation in PT serivces. Pt confirmed history and PLOF information and no complaints of pain during PT evaluation. Pt able to perform bed mobility tasks with min assist. Once at EOB, pt able to maintain sitting balance. Pt required min assist for functional transfers from various surfaces with focus on proper hand placement and facilitation of COM over MARVA. Pt was able to ambulate for 35ft before fatigue and then reported that she needed to rest bc her B knees were feeling weak. Pt education on swing bed program and benefits of participation. Pt verbalized understanding. Pt would benefit from continued participation in PT services to address deficits and facilitate highest level of function and safe discharge planning. - EXIT DISPOSITION Exit Position: CHAIR Call light in reach: Yes Comments: All needs met. PT/OT ASSESSMENT - PT Problem List: Decreased Bed Mobility, Decreased Transfers, Decreased Gait, Decreased Balance, Decreased LE Strength - OT Problem List: Other - PT GOALS Short Term Goals Days: 10 Mobility: Pt will perform bed mobility tasks with supervision Transfers: Pt will perform functional transfers with supervision Gait: Pt will ambulate 100ft with FWW with supervision Balance: Pt will increase static standing balance to good [employer] Goals Days: 20 Mobility: Pt will perform bed mobility tasks with mod I Transfers: Pt will perform functional transfers with mod I Gait: Pt will ambulate 150ft with FWW with mod I Balance: Pt will increase dynamic standing balance to fair+ ROM/Strength: Pt will increase BLE strength to 5/5 - OT GOALS [employer] Goals Days: 20 Mobility for ADL's: Pt to improve functional ADL transfers with LRAD and set up A Safety Awareness: Pt to improve safety to G Dressing: Pt to improve LB dressing to supv A with AE PRN Bathing: Pt to improve overall bathing with supv A Grooming: Pt to improve grooming/oral care with set up A Upper Ext. Strength/Use: Pt to improve MMT in BUE by 1 grade Short Term Goals Days: 10 Mobility for ADL's: Pt to improve functional ADL transfers with LRAD and supv A Safety Awareness: Pt to improve safety to F+ Dressing: Pt to improve UB dressing to supv A Bathing: Pt to improve overall bathing with min A Grooming: Pt to improve grooming/oral care with supv A Upper Ext. Strength/Use: - Other: Pt to improve FAT to G - PATIENT GOALS Patient/Family Goals: "I want to get better to go home" Goals Discussed with Patient/Family: Yes Rehabilitation Potential: Good to meet stated goals Justification for Potential: Facilitate highest level of function and safe discharge planning - PLAN Suggested Treatment Plan: Bed Mobility Training, Therapeutic Activity, Gait Training, Neuro Re-education, Therapeutic Ex with HEP, Patient Education, Family Education - FREQUENCY AND DURATION PT: 5x per week x 20 days Expected Continuation of Care at Discharge: Home Health
[2024-12-17] MEDS ORDERED: PULMICORT NEB TX 0.5 MG NEB ONE (19:19)
[2024-12-17] MEDS: ULTRAM PO PRN (19:51)
[2024-12-17] MEDS: PULMICORT NEB TX 0.5 MG NEB SCH (20:01)
[2024-12-17] MEDS: ELIQUIS PO SCH (20:20)
[2024-12-17] MEDS: COLACE CAP 100 MG PO SCH (20:20)
[2024-12-17] MEDS: CORDARONE TAB 200 MG PO SCH (20:21)
[2024-12-17] MEDS: MAG-OX TAB PO SCH (20:21)
[2024-12-18] MEDS: LIORESAL PO PRN (06:51)
[2024-12-18] MEDS: VIBRAMYCIN PO SCH (08:39)
[2024-12-18] MEDS: REQUIP PO SCH (08:39)
[2024-12-18] MEDS: K-DUR TAB 20 MEQ PO SCH (08:40)
[2024-12-18] MEDS: COZAAR PO SCH (08:41)
[2024-12-18] MEDS ORDERED: LASIX IVP SCH (09:00)
[2024-12-18] MEDS: TOPROL XL PO SCH (09:37)
--- NOTE | 2024-12-18 18:55 | SP.EVAL ---
SPEECH EVALUATION - History Prescription: ST Consult Diagnosis: Atrial fibrillation, CHF, AMS, UTI Precautions: Fall risk PMH: PMHx includes but not limited to CHF, DM, GERD, COPD, CKD, chronic bronchitis, smoker. Prior Level of Function: Independent - Objective Prior level of function: Independent Driving Status: Patient Drives - Cognition Mental Status: Alert, Oriented, Name, Date, Place, Purpose, Decreased Safety Awarenes Ability to Follow Directions: 2 Step Memory Loss: Short term memory loss - Communication Status Communication Status: Verbal Automatized Sequences: Within Functional Limit Sentence Completion: Within Functional Limit Produces Sentences: Within Functional Limit - Oral/Motor Examination Teeth: False Teeth Condition: U/L dentures Swallowing: No Impairments Swallowing: Consumed regular diet and thin liquids with no overt ssx of aspiration or compromise noted. Mastication and swallow timely and WFL. Diet Tolerated: Well - Speech Goals Short Term Goals Others: Pt will improve STM to Supervision.Patient will inc PS/reasoning to Supervi Mcfp Goals Others: Pt will improve cog-comm skills to Mod I for inc safety and I in 20 days. - Assessment Goals discussed with family?: No (None present) Patient/Family Goals: Patient goal is to return home to grandson. - Rehabilitation Rehabilitation Potential: Good for stated goals Justification for potential: Good for goals due to higher PLOF, good caregiver support. Weakness and Barriers: None - Suggested Treatment Plan Suggested Treatment: Speech/Hearing Therapy Treatment Comment: ST 2-3x/wk x 20 days - Discharge Plan Expected Discharge Disposition: Home Anticipated Equipment Needs: N/A
[2024-12-19 05:40] LABS: MEAN PLATELET VOLUME 8.7 fL (7.4-11.0); RED CELL DISTRIBUTION WIDTH 17.4 % (11.6-16.5)
[2024-12-19 05:55] LABS: COR CA(FOR HYPOALB) 9.8 mg/dL (8.5-10.1); CREATININE 1.33 mg/dL (0.55-1.02); eGFR NON BLACK RACES 40 (>60)
[2024-12-19] MEDS: NORCO 10/325 TAB PO PRN (20:40)
[2024-12-20] MEDS: LASIX PO SCH (08:51)
[2024-12-20] MEDS: ZOFRAN ODT SL PRN (12:41)
[2024-12-21 05:56] LABS: MEAN PLATELET VOLUME 8.9 fL (7.4-11.0); RED CELL DISTRIBUTION WIDTH 17.6 % (11.6-16.5)
[2024-12-21 06:10] LABS: COR CA(FOR HYPOALB) 9.9 mg/dL (8.5-10.1); CREATININE 1.24 mg/dL (0.55-1.02); eGFR NON BLACK RACES 44 (>60)
[2024-12-24 06:10] LABS: MEAN PLATELET VOLUME 9.0 fL (7.4-11.0); RED CELL DISTRIBUTION WIDTH 18.0 % (11.6-16.5)
[2024-12-24 06:14] LABS: COR CA(FOR HYPOALB) 10.0 mg/dL (8.5-10.1); CREATININE 1.31 mg/dL (0.55-1.02); eGFR NON BLACK RACES 41 (>60)
[2024-12-25 08:31] VITALS: BP 111/51; PULSE 53; RESP 18; TEMP 97.7; O2SAT 92
== END 2024-12-25 12:30 | disposition hospice, home (50) | DRG 292 ==
LOC: MED/SURG 09:00
PROVIDERS: ADMIT Internal Medicine; ATTEND Internal Medicine

== ENCOUNTER 2025-03-03 07:45 | Observation (INO) ==
--- NOTE | 2025-03-03 08:17 | EKG ---
Test Reason : shortness of breath Blood Pressure : */* mmHG Vent. Rate : 71 BPM Atrial Rate : 71 BPM P-R Int : 120 ms QRS Dur : 88 ms QT Int : 346 ms P-R-T Axes : 46 26 90 degrees QTc Int : 375 ms Normal sinus rhythm Nonspecific T wave abnormality Abnormal ECG When compared with ECG of 17-FEB-2025 10:31, premature atrial complexes are no longer present Vent. rate has increased BY 24 BPM Minimal criteria for Anterior infarct are no longer present Nonspecific T wave abnormality, worse in Inferior leads Nonspecific T wave abnormality now evident in Lateral leads QT has shortened Confirmed by Luis Galindo MD ([id number]) on 03/03/2025 2:19:04 PM Referred By: Confirmed By: Luis Galindo MD
--- NOTE | 2025-03-03 08:55 | DR.GENAD ---
HPI Time Seen Time Seen by Provider: 03/03/25 08:03 PCP Primary Care Physician: ANN Simon Complaint/Symptoms Chief Complaint Doctors Comments: 85-year-old female to ED from home via EMS under hospice care for increasing shortness of breath. Pt c/o one week of progressively worsening shortness of breath that suddenly became much worse this morning. Pt has had nonproductive cough x 3 days. Denies any fever or chills. Chief Complaint:: Pt c/o one week of progressively worsening shortness of breath that suddenly became much worse this morning. Pt has had nonproductive cough x 3 days. Denies any fever or chills. Self Treatment fo Chief Complaint: Pt was given a duoneb to EMS prior to arrival which pt states helped. Pt does have home oxygen and home duonebs but states that she didn't remember to use either when she suddenly began feeling more short of breath. COVID-19 Coronavirus risk:travel/contact w/high risk person: No Has patient experienced Coronavirus symptoms: No Source History Provided: Patient and EMS Mode of Arrival Mode of Arrival: EMS Timing Onset of Chief Complaint: 03/03/25 PMH PMH Past Medical History: Yes Past Medical History: Anemia, Anxiety, Arthritis, Asthma, CHF, COPD, Coronary Artery Disease, Diabetes, Dyslipidemia, GERD, Hypertension, Hypothyroidism, [place], PUD and Renal Disease Past Medical History Comment: afib, chronic back pain Past Surgical History: Yes Surgical History: Other Past Surgical History Comment: eye surgery Family History History of Family Medical Conditions: Yes Family Medical History: Diabetes Mellitus, Cancer, [place], Coronary Artery Disease and Hypertension Social History Does patient currently use any type of tobacco product: No Have you used tobacco products in the last 12 months: No Type of Tobacco Use: None Does any household member use tobacco: No Alcohol Use: None Do you use any recreational Drugs:: No Lives With: Family Lives Where: Home Travel Risk Coronavirus risk:travel/contact w/high risk person: No Has patient experienced Coronavirus symptoms: No Infectious screening In the last 2 months have you had wt loss of >10#?: NO Have you had fever, night sweats or hemotysis?: No Have you traveled outside the country in the last 6 months?: No Isolation: Standard ROS Review of Systems Constitutional: See HPI, Chills and Fever Eyes: No Symptoms Reported ENTM: No Symptoms Reported Respiratoy: See HPI and Short of Breath Cardiovascular: No Symptoms Reported Gastrointestinal/Abdominal: No Symptoms Reported Genitourinary: No Symptoms Reported Neurological: No Symptoms Reported Musculoskeletal: No Symptoms Reported Integumentary: No Symptoms Reported Hematologic/Lymphatic: No Symptoms Reported Endocrine: No Symptoms Reported Psychiatric: No Symptoms Reported All Other Systems: Reviewed and Negative PE Vital Signs Vitals: Vital Signs Temperature 98.2 F Pulse Rate 72 Pulse Rate 73 Pulse Rate 75 Pulse Rate 75 Pulse Rate 72 Pulse Rate 77 Pulse Rate 75 Pulse Rate 75 Pulse Rate 76 Pulse Rate 71 Pulse Rate 103 Pulse Rate 90 Pulse Rate 74 Respiratory Rate 23 Respiratory Rate 25 Respiratory Rate 35 Respiratory Rate 35 Respiratory Rate 20 Respiratory Rate 31 Respiratory Rate 23 Respiratory Rate 43 Respiratory Rate 24 Respiratory Rate 33 Respiratory Rate 27 Respiratory Rate 40 Respiratory Rate 20 Blood Pressure 137/58 Blood Pressure 127/59 Blood Pressure 160/70 Blood Pressure 173/69 Blood Pressure 161/68 Blood Pressure 176/74 O2 Sat by Pulse Oximetry 99 O2 Sat by Pulse Oximetry 98 O2 Sat by Pulse Oximetry 97 O2 Sat by Pulse Oximetry 97 O2 Sat by Pulse Oximetry 97 O2 Sat by Pulse Oximetry 96 O2 Sat by Pulse Oximetry 93 O2 Sat by Pulse Oximetry 99 O2 Sat by Pulse Oximetry 98 O2 Sat by Pulse Oximetry 98 O2 Sat by Pulse Oximetry 97 O2 Sat by Pulse Oximetry 92 O2 Sat by Pulse Oximetry 96 General Limitations: No Limitations General Appearance: In No Apparent Distress (awake) Head Head Exam: Normal Inspection Eyes Eye exam: Normal Appearance ENT ENT Exam: Normal Exam External Ear Exam: Normal External Inspection TM/Canal Exam: Bilateral: Normal Nose Exam: Normal Nose Exam Mouth Exam: Normal Inspection Throat Exam: Normal Inspection Neck Neck Exam: Normal Inspection Chest Chest Inspection: Normal Inspection Respiratory Respiratory Exam: Other (Decreased breath sounds bilaterally) Respiratory Exam: Bilateral: Clear to Auscultation Cardiovascular Cardiovascular Exam: Regular Rate and Normal Rhythm Abdominal Exam Abdominal Exam: Normal Inspection, Normal Bowel Sounds and Soft Extremities Extremities Exam: Normal Inspection Back Back Exam: Normal Inspection Neurologic Neurological Exam: Alert and Oriented X3 Psychiatric Psychiatric Exam: Normal Affect and Normal Mood Skin Skin Exam: Warm, Dry, Intact and Normal Color COURSE Treatment Treatment: Discussed findings with patient and daughter risk benefits options discussed questions answered daughter wishes patient admitted does not feel she can take care of her at home at this time. Discussed with Dr.Siu for on callWho will accept patient [facility] Labs Reviewed 03/03/25 09:00 03/03/25 09:00 Laboratory: WBC 8.4 X10^3/uL (3.6-10.0) 03/03/25 09:00 RBC 3.67 X10^6/uL (3.5-5.4) 03/03/25 09:00 Hgb 9.4 g/dL (12.0-16.0) L 03/03/25 09:00 Hct 29.7 % (36.0-47.0) L 03/03/25 09:00 MCV 80.8 fL (80.0-100.0) 03/03/25 09:00 MCH 25.6 pg (27.0-34.0) L 03/03/25 09:00 MCHC 31.6 g/dL (33.0-35.0) L 03/03/25 09:00 RDW 26.9 % (11.6-16.5) H 03/03/25 09:00 Plt Count 237 X10^3/uL (150.0-450.0) 03/03/25 09:00 Plt Count Comment Adequate (ADEQUATE) 03/03/25 09:00 MPV 8.0 fL (7.4-11.0) 03/03/25 09:00 Neut % (Auto) 73.2 % (42.0-75.0) 03/03/25 09:00 Lymph % (Auto) 17.1 % (21.0-51.0) L 03/03/25 09:00 [place] % (Auto) 9.0 % (0.0-13.0) 03/03/25 09:00 Eos % (Auto) 0.3 % (0.9-2.9) L 03/03/25 09:00 Baso % (Auto) 0.4 % (0.2-1.0) 03/03/25 09:00 Neut # (Auto) 6.2 x10^3/uL (2.2-4.8) H 03/03/25 09:00 Lymph # (Auto) 1.4 X10^3/uL (1.3-2.9) 03/03/25 09:00 [place] # (Auto) 0.8 x10^3/uL (0.3-0.8) 03/03/25 09:00 Eos # (Auto) 0.0 x10^3/uL (0.0-0.2) 03/03/25 09:00 Baso # (Auto) 0.0 X10^3/uL (0.0-0.1) 03/03/25 09:00 Absolute Nucleated RBC 0.1 /100WBC 03/03/25 09:00 Plt Morphology Comment Normal (NORMAL) 03/03/25 09:00 RBC Morphology Abnormal (NORMAL) A 03/03/25 09:00 Hypochromasia Slight A 03/03/25 09:00 Anisocytosis 3+ A 03/03/25 09:00 PT 14.2 SECONDS (11.8-14.3) 03/03/25 09:00 INR Target Range - 03/03/25:00 INR 1.08 (0.8-1.3) 03/03/25 09:00 APTT 34.5 SECONDS (22.9-36.5) 03/03/25 09:00 PTT Comment - 03/03/25 09:00 D-Dimer 0.65 ug/ml (0.0-0.57) H 03/03/25 09:00 Sodium 140 mmol/L (136-145) 03/03/25 09:00 Corrected Sodium TNP 03/03/25 09:00 Potassium 4.0 mmol/L (3.5-5.1) 03/03/25 09:00 Chloride 103 mmol/L (98-107) 03/03/25 09:00 Carbon Dioxide 30.8 mmol/L (21-32) 03/03/25 09:00 BUN 20 mg/dL (7-18) H 03/03/25 09:00 Creatinine 1.95 mg/dL (0.55-1.02) H 03/03/25 09:00 Est GFR (MDRD) Af Amer 31 (>60) L 03/03/25 09:00 Est GFR (MDRD) Non-Af 26 (>60) L 03/03/25 09:00 Glucose 104 mg/dL (65-99) H 03/03/25 09:00 Calcium 8.6 mg/dL (8.5-10.1) 03/03/25 09:00 Corrected Calcium 9.6 mg/dL (8.5-10.1) 03/03/25 09:00 Total Bilirubin 0.30 mg/dL (0.2-1.0) 03/03/25 09:00 AST 18 Units/L (15-37) 03/03/25 09:00 ALT 22 Units/L (12-78) 03/03/25 09:00 Alkaline Phosphatase 91 Units/L (46-116) 03/03/25 09:00 Creatine Kinase 19 Units/L (26-192) L 03/03/25 09:00 Troponin I High Sens 13.4 ng/L (4.0-60.0) 03/03/25 09:00 B-Natriuretic Peptide 106 pg/mL (0-79) H 03/03/25 09:00 Total Protein 6.1 g/dL (6.4-8.2) L 03/03/25 09:00 Albumin 2.8 g/dL (3.4-5.0) L 03/03/25 09:00 Globulin 3.3 g/dL (2.5-4.5) 03/03/25 09:00 Albumin/Globulin Ratio 0.8 Ratio (1.1-2.1) L 03/03/25 09:00 Opioid Opioid Risk Tool Age (Singh box if 16-45): No History of Preadolescent Sexual Abuse: No Total: 0 Total Score Risk Category: Low Risk Copyright: Dillon PATRICIA predicting aberrant behaviors Discharge Plan Diagnosis Discharge Problem: Dyspnea, COPD (chronic obstructive pulmonary disease) Discharge Plan Patient Disposition: ADMITTED INPATIENT Condition: Stable Prescriptions: No Action amiodarone 200 mg tablet 200 mg PO BID hydrocodone-acetaminophen 10-325 mg tablet 1 tab PO QID PRN albuterol sulfate 90 mcg/actuation HFA aerosol inhaler 90 mcg inhalation Q4H PRN Trelegy Ellipta 100-62.5-25 mcg blister with device 1 ea inhalation QDAY losartan 50 mg tablet 50 mg PO QDAY fluconazole 150 mg tablet 150 mg PO Q3D potassium chloride 20 mEq/15 mL liquid 20 meq PO DAILY doxycycline hyclate 100 mg tablet 100 mg PO BID Rx Instructions: x 7 days - started on 03/01/25 tizanidine 2 mg tablet 2 mg PO Q8H PRN levothyroxine 50 mcg tablet 50 mcg PO QDAY esomeprazole magnesium 40 mg capsule,delayed release(DR/EC) 40 mg PO QDAY bumetanide 1 mg tablet 1 mg PO QDAY metoprolol succinate 25 mg tablet extended release 24 hr 12.5 mg PO QDAY Eliquis 2.5 mg Tablet 2.5 mg PO BID sennosides-docusate sodium [Senna Plus] 8.6-50 mg tablet 2 tab PO QPM furosemide 40 mg tablet 40 mg PO BID Health Concerns: Post Hospitalization: new medications and changes needed to prevent readmission or further decline. Pt educated and given instructions on all concerns. Plan of Treatment: Continue with present treatment and follow up plan. Pt is to keep follow up appointment as instructed and take medications as ordered. Follow ups/Referrals Follow ups/Referrals: BALAJI RECIO [Primary Care Provider, MEDICAL] - 3 days Instructions Print Language: BANGLADESHI
[2025-03-03 09:17] LABS: MEAN PLATELET VOLUME 8.0 fL (7.4-11.0); RED CELL DISTRIBUTION WIDTH 26.9 % (11.6-16.5)
[2025-03-03 09:22] LABS: INR 1.08 (0.8-1.3)
[2025-03-03 09:26] LABS: COR CA(FOR HYPOALB) 9.6 mg/dL (8.5-10.1); CREATININE 1.95 mg/dL (0.55-1.02); eGFR NON BLACK RACES 26 (>60)
[2025-03-03 09:45] LABS: PLATELET MORPHOLOGY COMMENT NORMAL (NORMAL)
--- NOTE | 2025-03-03 10:23 | RAD ---
EXAM: AP chest HISTORY: SOB COMPARISON: 02/24/2025 r.br.br.br developing pneumonia, CHF/edema, pneumothorax or pleural fluid. IMPRESSION: No acute findings identified in the chest. THIS IS AN ELECTRONICALLY VERIFIED FINAL REPORT 03/03/2025 10:20 AM - Electronically signed by Jose Young MD
--- NOTE | 2025-03-03 11:09 | DR.SOBA ---
HPI <Wyatt Foreman - Last Filed: 03/03/25 11:09> Time Seen Time Seen by Provider: 03/03/25 08:03 <Rafael Joseph - Last Filed: > Primary Care Physician Primary Care Physician: ANN Simon Complaints Chief Complaint:: Pt c/o one week of progressively worsening shortness of breath that suddenly became much worse this morning. Pt has had nonproductive cough x 3 days. Denies any fever or chills. Self Treatment fo Chief Complaint: Pt was given a duoneb to EMS prior to arrival which pt states helped. Pt does have home oxygen and home duonebs but states that she didn't remember to use either when she suddenly began feeling more short of breath. COVID-19 Coronavirus risk:travel/contact w/high risk person: No Has patient experienced Coronavirus symptoms: No Source History Provided: Patient and EMS Mode of Arrival Mode of Arrival: EMS Timing Onset of Chief Complaint: 03/03/25 PMH <Rafael Joseph - Last Filed: > PMH Past Medical History: Yes Past Medical History: Anemia, Anxiety, Arthritis, Asthma, CHF, COPD, Coronary Artery Disease, Diabetes, Dyslipidemia, GERD, Hypertension, Hypothyroidism, [place], PUD and Renal Disease Past Medical History Comment: afib, chronic back pain Past Surgical History: Yes Surgical History: Other Past Surgical History Comment: eye surgery Family History History of Family Medical Conditions: Yes Family Medical History: Diabetes Mellitus, Cancer, [place], Coronary Artery Disease and Hypertension Social History Does patient currently use any type of tobacco product: No Have you used tobacco products in the last 12 months: No Type of Tobacco Use: None Does any household member use tobacco: No Alcohol Use: None Do you use any recreational Drugs:: No Lives With: Family Lives Where: Home Travel Risk Coronavirus risk:travel/contact w/high risk person: No Has patient experienced Coronavirus symptoms: No Infectious screening In the last 2 months have you had wt loss of >10#?: NO Have you had fever, night sweats or hemotysis?: No Have you traveled outside the country in the last 6 months?: No Isolation: Standard PE <Wyatt Foreman - Last Filed: 03/03/25 11:09> Vital Signs Vitals: Vital Signs Temperature 98.2 F Pulse Rate 72 Pulse Rate 73 Pulse Rate 75 Pulse Rate 75 Pulse Rate 72 Pulse Rate 77 Pulse Rate 75 Pulse Rate 75 Pulse Rate 76 Pulse Rate 71 Pulse Rate 103 Pulse Rate 90 Pulse Rate 74 Respiratory Rate 23 Respiratory Rate 25 Respiratory Rate 35 Respiratory Rate 35 Respiratory Rate 20 Respiratory Rate 31 Respiratory Rate 23 Respiratory Rate 43 Respiratory Rate 24 Respiratory Rate 33 Respiratory Rate 27 Respiratory Rate 40 Respiratory Rate 20 Blood Pressure 137/58 Blood Pressure 127/59 Blood Pressure 160/70 Blood Pressure 173/69 Blood Pressure 161/68 Blood Pressure 176/74 O2 Sat by Pulse Oximetry 99 O2 Sat by Pulse Oximetry 98 O2 Sat by Pulse Oximetry 97 O2 Sat by Pulse Oximetry 97 O2 Sat by Pulse Oximetry 97 O2 Sat by Pulse Oximetry 96 O2 Sat by Pulse Oximetry 93 O2 Sat by Pulse Oximetry 99 O2 Sat by Pulse Oximetry 98 O2 Sat by Pulse Oximetry 98 O2 Sat by Pulse Oximetry 97 O2 Sat by Pulse Oximetry 92 O2 Sat by Pulse Oximetry 96 <Rafael Joseph - Last Filed: > Vital Signs Vitals: Vital Signs Temperature 98.2 F Pulse Rate 72 Pulse Rate 73 Pulse Rate 75 Pulse Rate 75 Pulse Rate 72 Pulse Rate 77 Pulse Rate 75 Pulse Rate 75 Pulse Rate 76 Pulse Rate 71 Pulse Rate 103 Pulse Rate 90 Pulse Rate 74 Respiratory Rate 23 Respiratory Rate 25 Respiratory Rate 35 Respiratory Rate 35 Respiratory Rate 20 Respiratory Rate 31 Respiratory Rate 23 Respiratory Rate 43 Respiratory Rate 24 Respiratory Rate 33 Respiratory Rate 27 Respiratory Rate 40 Respiratory Rate 20 Blood Pressure 137/58 Blood Pressure 127/59 Blood Pressure 160/70 Blood Pressure 173/69 Blood Pressure 161/68 Blood Pressure 176/74 O2 Sat by Pulse Oximetry 99 O2 Sat by Pulse Oximetry 98 O2 Sat by Pulse Oximetry 97 O2 Sat by Pulse Oximetry 97 O2 Sat by Pulse Oximetry 97 O2 Sat by Pulse Oximetry 96 O2 Sat by Pulse Oximetry 93 O2 Sat by Pulse Oximetry 99 O2 Sat by Pulse Oximetry 98 O2 Sat by Pulse Oximetry 98 O2 Sat by Pulse Oximetry 97 O2 Sat by Pulse Oximetry 92 O2 Sat by Pulse Oximetry 96 ROR <Wyatt Foreman - Last Filed: 03/03/25 11:09> Labs Reviewed 03/03/25 09:00 03/03/25 09:00 Laboratory: WBC 8.4 X10^3/uL (3.6-10.0) 03/03/25 09:00 RBC 3.67 X10^6/uL (3.5-5.4) 03/03/25 09:00 Hgb 9.4 g/dL (12.0-16.0) L 03/03/25 09:00 Hct 29.7 % (36.0-47.0) L 03/03/25 09:00 MCV 80.8 fL (80.0-100.0) 03/03/25 09:00 MCH 25.6 pg (27.0-34.0) L 03/03/25 09:00 MCHC 31.6 g/dL (33.0-35.0) L 03/03/25 09:00 RDW 26.9 % (11.6-16.5) H 03/03/25 09:00 Plt Count 237 X10^3/uL (150.0-450.0) 03/03/25 09:00 Plt Count Comment Adequate (ADEQUATE) 03/03/25 09:00 MPV 8.0 fL (7.4-11.0) 03/03/25 09:00 Neut % (Auto) 73.2 % (42.0-75.0) 03/03/25 09:00 Lymph % (Auto) 17.1 % (21.0-51.0) L 03/03/25 09:00 [place] % (Auto) 9.0 % (0.0-13.0) 03/03/25 09:00 Eos % (Auto) 0.3 % (0.9-2.9) L 03/03/25 09:00 Baso % (Auto) 0.4 % (0.2-1.0) 03/03/25 09:00 Neut # (Auto) 6.2 x10^3/uL (2.2-4.8) H 03/03/25 09:00 Lymph # (Auto) 1.4 X10^3/uL (1.3-2.9) 03/03/25 09:00 [place] # (Auto) 0.8 x10^3/uL (0.3-0.8) 03/03/25 09:00 Eos # (Auto) 0.0 x10^3/uL (0.0-0.2) 03/03/25 09:00 Baso # (Auto) 0.0 X10^3/uL (0.0-0.1) 03/03/25 09:00 Absolute Nucleated RBC 0.1 /100WBC 03/03/25 09:00 Plt Morphology Comment Normal (NORMAL) 03/03/25 09:00 RBC Morphology Abnormal (NORMAL) A 03/03/25 09:00 Hypochromasia Slight A 03/03/25 09:00 Anisocytosis 3+ A 03/03/25 09:00 PT 14.2 SECONDS (11.8-14.3) 03/03/25 09:00 INR Target Range - 03/03/25 09:00 INR 1.08 (0.8-1.3) 03/03/25 09:00 APTT 34.5 SECONDS (22.9-36.5) 03/03/25 09:00 PTT Comment - 03/03/25 09:00 D-Dimer 0.65 ug/ml (0.0-0.57) H 03/03/25 09:00 Sodium 140 mmol/L (136-145) 03/03/25 09:00 Corrected Sodium TNP 03/03/25 09:00 Potassium 4.0 mmol/L (3.5-5.1) 03/03/25 09:00 Chloride 103 mmol/L (98-107) 03/03/25 09:00 Carbon Dioxide 30.8 mmol/L (21-32) 03/03/25 09:00 BUN 20 mg/dL (7-18) H 03/03/25 09:00 Creatinine 1.95 mg/dL (0.55-1.02) H 03/03/25 09:00 Est GFR (MDRD) Af Amer 31 (>60) L 03/03/25 09:00 Est GFR (MDRD) Non-Af 26 (>60) L 03/03/25 09:00 Glucose 104 mg/dL (65-99) H 03/03/25 09:00 Calcium 8.6 mg/dL (8.5-10.1) 03/03/25 09:00 Corrected Calcium 9.6 mg/dL (8.5-10.1) 03/03/25 09:00 Total Bilirubin 0.30 mg/dL (0.2-1.0) 03/03/25 09:00 AST 18 Units/L (15-37) 03/03/25 09:00 ALT 22 Units/L (12-78) 03/03/25 09:00 Alkaline Phosphatase 91 Units/L (46-116) 03/03/25 09:00 Creatine Kinase 19 Units/L (26-192) L 03/03/25 09:00 Troponin I High Sens 13.4 ng/L (4.0-60.0) 03/03/25 09:00 B-Natriuretic Peptide 106 pg/mL (0-79) H 03/03/25 09:00 Total Protein 6.1 g/dL (6.4-8.2) L 03/03/25 09:00 Albumin 2.8 g/dL (3.4-5.0) L 03/03/25 09:00 Globulin 3.3 g/dL (2.5-4.5) 03/03/25 09:00 Albumin/Globulin Ratio 0.8 Ratio (1.1-2.1) L 03/03/25 09:00 <Rafael Joseph - Last Filed: > Labs Reviewed Laboratory: WBC 8.4 X10^3/uL (3.6-10.0) 03/03/25 09:00 RBC 3.67 X10^6/uL (3.5-5.4) 03/03/25 09:00 Hgb 9.4 g/dL (12.0-16.0) L 03/03/25 09:00 Hct 29.7 % (36.0-47.0) L 03/03/25 09:00 MCV 80.8 fL (80.0-100.0) 03/03/25 09:00 MCH 25.6 pg (27.0-34.0) L 03/03/25 09:00 MCHC 31.6 g/dL (33.0-35.0) L 03/03/25 09:00 RDW 26.9 % (11.6-16.5) H 03/03/25 09:00 Plt Count 237 X10^3/uL (150.0-450.0) 03/03/25 09:00 Plt Count Comment Adequate (ADEQUATE) 03/03/25 09:00 MPV 8.0 fL (7.4-11.0) 03/03/25 09:00 Neut % (Auto) 73.2 % (42.0-75.0) 03/03/25 09:00 Lymph % (Auto) 17.1 % (21.0-51.0) L 03/03/25 09:00 [place] % (Auto) 9.0 % (0.0-13.0) 03/03/25 09:00 Eos % (Auto) 0.3 % (0.9-2.9) L 03/03/25 09:00 Baso % (Auto) 0.4 % (0.2-1.0) 03/03/25 09:00 Neut # (Auto) 6.2 x10^3/uL (2.2-4.8) H 03/03/25 09:00 Lymph # (Auto) 1.4 X10^3/uL (1.3-2.9) 03/03/25 09:00 [place] # (Auto) 0.8 x10^3/uL (0.3-0.8) 03/03/25 09:00 Eos # (Auto) 0.0 x10^3/uL (0.0-0.2) 03/03/25 09:00 Baso # (Auto) 0.0 X10^3/uL (0.0-0.1) 03/03/25 09:00 Absolute Nucleated RBC 0.1 /100WBC 03/03/25 09:00 Plt Morphology Comment Normal (NORMAL) 03/03/25 09:00 RBC Morphology Abnormal (NORMAL) A 03/03/25 09:00 Hypochromasia Slight A 03/03/25 09:00 Anisocytosis 3+ A 03/03/25 09:00 PT 14.2 SECONDS (11.8-14.3) 03/03/25 09:00 INR Target Range - 03/03/25 09:00 INR 1.08 (0.8-1.3) 03/03/25 09:00 APTT 34.5 SECONDS (22.9-36.5) 03/03/25 09:00 PTT Comment - 03/03/25 09:00 D-Dimer 0.65 ug/ml (0.0-0.57) H 03/03/25 09:00 Sodium 140 mmol/L (136-145) 03/03/25 09:00 Corrected Sodium TNP 03/03/25 09:00 Potassium 4.0 mmol/L (3.5-5.1) 03/03/25 09:00 Chloride 103 mmol/L (98-107) 03/03/25 09:00 Carbon Dioxide 30.8 mmol/L (21-32) 03/03/25 09:00 BUN 20 mg/dL (7-18) H 03/03/25 09:00 Creatinine 1.95 mg/dL (0.55-1.02) H 03/03/25 09:00 Est GFR (MDRD) Af Amer 31 (>60) L 03/03/25 09:00 Est GFR (MDRD) Non-Af 26 (>60) L 03/03/25 09:00 Glucose 104 mg/dL (65-99) H 03/03/25 09:00 Calcium 8.6 mg/dL (8.5-10.1) 03/03/25 09:00 Corrected Calcium 9.6 mg/dL (8.5-10.1) 03/03/25 09:00 Total Bilirubin 0.30 mg/dL (0.2-1.0) 03/03/25 09:00 AST 18 Units/L (15-37) 03/03/25 09:00 ALT 22 Units/L (12-78) 03/03/25 09:00 Alkaline Phosphatase 91 Units/L (46-116) 03/03/25 09:00 Creatine Kinase 19 Units/L (26-192) L 03/03/25 09:00 Troponin I High Sens 13.4 ng/L (4.0-60.0) 03/03/25 09:00 B-Natriuretic Peptide 106 pg/mL (0-79) H 03/03/25 09:00 Total Protein 6.1 g/dL (6.4-8.2) L 03/03/25 09:00 Albumin 2.8 g/dL (3.4-5.0) L 03/03/25 09:00 Globulin 3.3 g/dL (2.5-4.5) 03/03/25 09:00 Albumin/Globulin Ratio 0.8 Ratio (1.1-2.1) L 03/03/25 09:00 Opioid <Wyatt Foreman - Last Filed: 03/03/25 11:09> Opioid Risk Tool Total: 0 Total Score Risk Category: Low Risk Copyright: Dillon PATRICIA predicting aberrant behaviors <Rafael Joseph - Last Filed: > Opioid Risk Tool Age (Singh box if 16-45): No History of Preadolescent Sexual Abuse: No Total: 0 Total Score Risk Category: Low Risk Discharge Plan Diagnosis Discharge Problem: Dyspnea, COPD (chronic obstructive pulmonary disease) Discharge Plan Patient Disposition: ADMITTED INPATIENT Condition: Stable Prescriptions: No Action amiodarone 200 mg tablet 200 mg PO BID hydrocodone-acetaminophen 10-325 mg tablet 1 tab PO QID PRN albuterol sulfate 90 mcg/actuation HFA aerosol inhaler 90 mcg inhalation Q4H PRN Trelegy Ellipta 100-62.5-25 mcg blister with device 1 ea inhalation QDAY losartan 50 mg tablet 50 mg PO QDAY fluconazole 150 mg tablet 150 mg PO Q3D potassium chloride 20 mEq/15 mL liquid 20 meq PO DAILY doxycycline hyclate 100 mg tablet 100 mg PO BID Rx Instructions: x 7 days - started on 03/01/25 tizanidine 2 mg tablet 2 mg PO Q8H PRN levothyroxine 50 mcg tablet 50 mcg PO QDAY esomeprazole magnesium 40 mg capsule,delayed release(DR/EC) 40 mg PO QDAY bumetanide 1 mg tablet 1 mg PO QDAY metoprolol succinate 25 mg tablet extended release 24 hr 12.5 mg PO QDAY Eliquis 2.5 mg Tablet 2.5 mg PO BID sennosides-docusate sodium [Senna Plus] 8.6-50 mg tablet 2 tab PO QPM furosemide 40 mg tablet 40 mg PO BID Health Concerns: Post Hospitalization: new medications and changes needed to prevent readmission or further decline. Pt educated and given instructions on all concerns. Plan of Treatment: Continue with present treatment and follow up plan. Pt is to keep follow up appointment as instructed and take medications as ordered. Orders to Discharge Patient Discharge Orders: Transfer (Routine); Ordered 03/03/25 Ordered By: Wyatt Foreman Follow ups/Referrals Follow ups/Referrals: BALAJI RECIO [Primary Care Provider, MEDICAL] - 3 days Instructions Print Language: ITALIAN
[2025-03-03] MEDS ORDERED: CONSULT PHARMACY - POTASSIUM & MAGNESIUM XX SCH (12:13)
[2025-03-03] MEDS ORDERED: TYLENOL 325 MG TAB PO PRN (12:13)
[2025-03-03] MEDS ORDERED: PROVENTIL NEB TX 0.083% 2.5MG/ 3ML ONE (13:09)
[2025-03-03] MEDS: PROVENTIL NEB TX 0.083% 2.5MG/ 3ML NEB SCH (13:13)
[2025-03-03] MEDS ORDERED: PROVENTIL NEB TX 0.083% 2.5MG/ 3ML NEB SCH (13:15)
[2025-03-03 13:59] VITALS: BMI 34.1
[2025-03-03] MEDS: NORCO 5/325 MG TAB PO PRN (15:24)
[2025-03-03] MEDS: MAG-OX TAB PO SCH (15:27)
[2025-03-03] MEDS ORDERED: PULMICORT NEB TX 0.5 MG NEB ONE (19:05)
[2025-03-03] MEDS: PULMICORT NEB TX 0.5 MG NEB SCH (20:00)
[2025-03-03] MEDS: ULTRAM PO PRN (20:36)
[2025-03-04 06:06] LABS: MEAN PLATELET VOLUME 8.2 fL (7.4-11.0); RED CELL DISTRIBUTION WIDTH 27.0 % (11.6-16.5)
[2025-03-04 06:19] LABS: COR CA(FOR HYPOALB) 9.5 mg/dL (8.5-10.1); CREATININE 1.27 mg/dL (0.55-1.02); eGFR NON BLACK RACES 42 (>60)
[2025-03-04 06:39] LABS: PLATELET MORPHOLOGY COMMENT NORMAL (NORMAL)
[2025-03-04 08:36] LABS: RETICULOCYTE % 4.99 % (0.8-2.2)
[2025-03-04] MEDS: NS 500 ML IV 500 ML IV ONE (08:45)
[2025-03-04] MEDS ORDERED: K-DUR TAB 20 MEQ PO SCH (09:00)
[2025-03-04] MEDS: ZITHROMAX INJ 500 MG VIAL 500 MG in D5W 250 ML IV 250 ML IV SCH (09:17)
[2025-03-04] MEDS: ELIQUIS PO SCH (09:19)
[2025-03-04] MEDS: NORCO 10/325 TAB PO PRN (09:20)
[2025-03-04] MEDS: POTASSIUM CHLORIDE LIQ PO SCH (09:20)
[2025-03-04] MEDS: LASIX IVP SCH (09:20)
[2025-03-04] MEDS: COZAAR PO SCH (12:04)
[2025-03-04] MEDS: CORDARONE TAB 200 MG PO SCH (12:05)
--- NOTE | 2025-03-04 12:08 | RAD ---
EXAM: CHEST, 1 VIEW HISTORY: pneumonia; COMPARISON: 025 TECHNIQUE: AP FINDINGS: Stable cardiac silhouette. Aortic arch atherosclerotic calcifications. Chronic mildly prominent interstitial lung markings. No focal consolidation. No large pleural effusion or visible pneumothorax. IMPRESSION: No acute cardiopulmonary findings. THIS IS AN ELECTRONICALLY VERIFIED FINAL REPORT 03/04/2025 12:01 PM - Electronically signed by Williams Barney MD
--- NOTE | 2025-03-04 13:42 | DR.H&P ---
H&P History & Physical for Day of: H&P Date: 03/03/25 Chief Complaint Chief Complaint: CCC, SOB History of Present Illness History of Present Illness: 85-year-old female to ED from home via EMS under hospice care for increasing shortness of breath. Pt c/o one week of progressively worsening shortness of breath that suddenly became much worse this morning. Pt has had nonproductive cough x 3 days. Pt has PMH of AFIB rate controlled, CHF, COPD with chronic resp failure, DM, HTN. Denies any fever or chills. Past Medical History Past Medical History: Anemia, Anxiety, Arthritis, Asthma, CHF, COPD, Coronary Artery Disease, Diabetes, Dyslipidemia, GERD, Hypertension, Hypothyroidism, [place], PUD and Renal Disease Past Surgical History Surgical History: Other Family History Family Medical History: Diabetes Mellitus, Cancer, [place], Coronary Artery Disease and Hypertension Social History Does patient currently use any type of tobacco product: No Have you used tobacco products in the last 12 months: No Type of Tobacco Use: None Does any household member use tobacco: Yes (daughter) Alcohol Use: None Drug Use: None Medications Home Medications: Home Medications Medication Instructions Recorded Confirmed Type apixaban 2.5 mg tablet (Eliquis) 2.5 mg PO BID 5 03/03/25 History albuterol sulfate 90 mcg/actuation 90 mcg inhalation Q 4H PRN 12/12/24 03/03/25 History aerosol inhaler fluticasone fur. 100 mcg-umeclid 1 ea inhalation QDAY 12/12/24 03/03/25 History 62.5 mcg-vilant 25 mcg inhalat.powder (Trelegy Ellipta) hydrocodone 10 mg-acetaminophen 1 tab PO QID PRN 12/1203/03/25 History 325 mg tablet amiodarone 200 mg tablet 200 mg PO BID 01/31/2503/03 History sennosides 8.6 mg-docusate sodium 2 tab PO QPM 5 03/03/25 History 50 mg tablet (Senna Plus) furosemide 40 mg tablet 40 mg PO BID 02/24/25 History bumetanide 1 mg tablet 1 mg PO QDAY 03/03/25 History doxycycline hyclate 100 mg tablet 100 mg PO BID 03/03/25 History esomeprazole magnesium 40 mg 40 mg PO QDAY 03/03/25 History capsule,delayed release fluconazole 150 mg tablet 150 mg PO Q3D 03/03/2503/03 History levothyroxine 50 mcg tablet 50 mcg PO QDAY 03/03/25 History losartan 50 mg tablet 50 mg PO QDAY 03/03/2503/03 History metoprolol succinate 25 mg 12.5 mg PO QDAY 03/03/25 History tablet,extended release 24 hr potassium chloride 20 mEq/15 mL 20 meq PO DAILY 03/03/25 History oral liquid tizanidine 2 mg tablet 2 mg PO Q8H PRN 03/03/25 History Allergies Allergies Allergy/AdvReac Type Severity Reaction Status Date / Time cefpodoxime Allergy Severe ANAPHALEXIS Verified 03/03/25 08:01 REACTION penicillin G Allergy Mild RASH AND Verified 03/03/25 12:54 ITCHING levofloxacin (Levaquin) Allergy Unknown Verified 03/03/25 08:01 nitrofurantoin Allergy Unknown Hives; Verified 03/03/25 08:01 Itching; Rash codeine AdvReac Mild RASH Verified 03/03/25 08:01 lidocaine AdvReac Mild ITCHING Verified 03/03/25 12:54 penicillin V AdvReac Mild ITCHING Verified 03/03/25 12:54 procaine AdvReac Mild ITCHING Verified 03/03/25 12:54 Sulfa (Sulfonamide AdvReac Mild RASH Verified 03/03/25 08:01 Antibiotics) (SULFA) Labs 03/04/25 05:44 03/04/25 05:44 Labs: Laboratory WBC 8.0 X10^3/uL (3.6-10.0) 03/04/25 05:44 RBC 3.41 X10^6/uL (3.5-5.4) L 03/04/25 05:44 Hgb 8.8 g/dL (12.0-16.0) L 03/04/25 05:44 Hct 27.6 % (36.0-47.0) L 03/04/25 05:44 MCV 80.8 fL (80.0-100.0) 03/04/25 05:44 MCH 25.9 pg (27.0-34.0) L 03/04/25 05:44 MCHC 32.0 g/dL (33.0-35.0) L 03/04/25 05:44 RDW 27.0 % (11.6-16.5) H 03/04/25 05:44 Plt Count 203 X10^3/uL (150.0-450.0) 03/04/25 05:44 Plt Count Comment Adequate (ADEQUATE) 03/04/25 05:44 MPV 8.2 fL (7.4-11.0) 03/04/25 05:44 Neut % (Auto) 77.6 % (42.0-75.0) H 03/04/25 05:44 Lymph % (Auto) 13.7 % (21.0-51.0) L 03/04/25 05:44 [place] % (Auto) 7.8 % (0.0-13.0) 03/04/25 05:44 Eos % (Auto) 0.1 % (0.9-2.9) L 03/04/25 05:44 Baso % (Auto) 0.8 % (0.2-1.0) 03/04/25 05:44 Neut # (Auto) 6.2 x10^3/uL (2.2-4.8) H 03/04/25 05:44 Lymph # (Auto) 1.1 X10^3/uL (1.3-2.9) L 03/04/25 05:44 [place] # (Auto) 0.6 x10^3/uL (0.3-0.8) 03/04/25 05:44 Eos # (Auto) 0.0 x10^3/uL (0.0-0.2) 03/04/25 05:44 Baso # (Auto) 0.1 X10^3/uL (0.0-0.1) 03/04/25 05:44 Absolute Nucleated RBC 0.1 /100WBC 03/04/25 05:44 Plt Morphology Comment Normal (NORMAL) 03/04/25 05:44 RBC Morphology Abnormal (NORMAL) A 03/04/25 05:44 Hypochromasia Slight A 03/04/25 05:44 Anisocytosis 3+ A 03/04/25 05:44 Stomatocytes Slight A 03/04/25 05:44 Absolute Retic 0.1711 10^6/uL 03/04/25 05:44 Percent Retic 4.99 % (0.8-2.2) H 03/04/25 05:44 PT 14.2 SECONDS (11.8-14.3) 03/03/25 09:00 INR Target Range - 03/03/25 09:00 INR 1.08 (0.8-1.3) 03/03/25 09:00 APTT 34.5 SECONDS (22.9-36.5) 03/03/25 09:00 PTT Comment - 03/03/25 09:00 D-Dimer 0.65 ug/ml (0.0-0.57) H 03/03/25 09:00 Sodium 139 mmol/L (136-145) 03/04/25 05:44 Corrected Sodium TNP 03/04/25 05:44 Potassium 4.1 mmol/L (3.5-5.1) 03/04/25 05:44 Chloride 105 mmol/L (98-107) 03/04/25 05:44 Carbon Dioxide 30.7 mmol/L (21-32) 03/04/25 05:44 BUN 14 mg/dL (7-18) 03/04/25 05:44 Creatinine 1.27 mg/dL (0.55-1.02) H 03/04/25 05:44 Est GFR (MDRD) Af Amer 51 (>60) L 03/04/25 05:44 Est GFR (MDRD) Non-Af 42 (>60) L 03/04/25 05:44 Glucose 100 mg/dL (65-99) H 03/04/25 05:44 POC Glucose (mg/dL) 107 mg/dL (65-99) H 03/04/25 12:02 Calcium 8.4 mg/dL (8.5-10.1) L 03/04/25 05:44 Corrected Calcium 9.5 mg/dL (8.5-10.1) 03/04/25 05:44 Magnesium 1.8 mg/dL (2.0-2.9) L 03/03/25 09:00 Iron 19 ug/dL (50-175) L 03/04/25 05:44 TIBC 246 ug/dL (250-450) L 03/04/25 05:44 Transferrin 196 mg/dL (202-364) L 03/04/25 05:44 Ferritin 71 ng/mL (8-252) 03/04/25 05:44 Total Bilirubin 0.60 mg/dL (0.2-1.0) 03/04/25 05:44 AST 17 Units/L (15-37) 03/04/25 05:44 ALT 18 Units/L (12-78) 03/04/25 05:44 Alkaline Phosphatase 81 Units/L (46-116) 03/04/25 05:44 Creatine Kinase 19 Units/L (26-192) L 03/03/25 09:00 Troponin I High Sens 13.4 ng/L (4.0-60.0) 03/03/25 09:00 B-Natriuretic Peptide 106 pg/mL (0-79) H 03/03/25 09:00 Total Protein 5.6 g/dL (6.4-8.2) L 03/04/25 05:44 Albumin 2.6 g/dL (3.4-5.0) L 03/04/25 05:44 Globulin 3.0 g/dL (2.5-4.5) 03/04/25 05:44 Albumin/Globulin Ratio 0.9 Ratio (1.1-2.1) L 03/04/25 05:44 Vitamin B12 606 pg/mL (193-986) 03/04/25 05:44 Folate 12.9 ng/mL (>8.6) 03/04/25 05:44 Review of Systems Constitutional: Weakness Eyes: No Symptoms Reported ENT: Nose Discharge and Nose Congestion Respiratory: Cough, Shortness of Breath, Sputum and Wheezing Cardiovascular: No Symptoms Reported Gastrointestinal: No Symptoms Reported and Nausea Genitourinary: No Symptoms Reported Musculoskeletal: No Symptoms Reported Skin: No Symptoms Reported Neurological: Weakness Physical Exam Vital Signs: Vital Signs Temperature 98.2 F Temperature 98.4 F Pulse Rate [Left] 64 Pulse Rate [Left] 73 Respiratory Rate 18 Respiratory Rate 20 Respiratory Rate 20 Respiratory Rate 18 Blood Pressure [Left Arm] 101/53 Blood Pressure [Left Arm] 135/59 Blood Pressure [Right Arm] 144/63 Blood Pressure [Right Arm] 144/63 O2 Sat by Pulse Oximetry 97 O2 Sat by Pulse Oximetry 96 Oriented: Normal Eyes: Normal Ear: Normal Nose: Normal Throat: Normal Respiratory: Rhonchi Throughout, RLL Diminished and LLL Diminished Palpation: Normal Tenderness: Epigastric and Mild Musculoskeletal: Motor Deficit and Instability Psychiatric: Anxiety Mood Description: Depressed Affect: Depressed Speech Pattern: Clear and Appropriate Assessment/Plan (1) COPD (chronic obstructive pulmonary disease): Status: Chronic Plan: ADMIT, IV ATBX, RESP THERAPY SUPPLEMENTAL O2, I&OS VERIFY HOME MEDICATIONS BP CONTROL, BS CONTROL (2) CHF (congestive heart failure): Status: Acute (3) Anemia: Status: Acute (4) Diabetes: Status: Chronic (5) Atrial fibrillation: Status: Chronic
[2025-03-04] MEDS: SENOKOT PO SCH (20:36)
[2025-03-05 06:12] LABS: MEAN PLATELET VOLUME 8.4 fL (7.4-11.0)
[2025-03-05 06:25] LABS: RED CELL DISTRIBUTION WIDTH 26.9 % (11.6-16.5)
[2025-03-05 06:51] LABS: COR CA(FOR HYPOALB) 9.9 mg/dL (8.5-10.1); CREATININE 1.26 mg/dL (0.55-1.02); eGFR NON BLACK RACES 43 (>60)
[2025-03-05 07:08] LABS: PLATELET MORPHOLOGY COMMENT NORMAL (NORMAL)
[2025-03-05] MEDS: ROBITUSSIN DM PO SCH (17:43)
[2025-03-06 05:31] LABS: COR CA(FOR HYPOALB) 9.7 mg/dL (8.5-10.1); COR NA(FOR HYPERGLY) 141.0 mmol/L (136-145); CREATININE 1.23 mg/dL (0.55-1.02); eGFR NON BLACK RACES 44.0 (>60)
[2025-03-06 05:32] LABS: MEAN PLATELET VOLUME 8.5 fL (7.4-11.0); RED CELL DISTRIBUTION WIDTH 26.1 % (11.6-16.5)
[2025-03-06 06:03] LABS: PLATELET MORPHOLOGY COMMENT NORMAL (NORMAL)
[2025-03-06] MEDS: SALINE 3% 15 ML NEB TX NEB ONE (10:26)
[2025-03-06] MEDS ORDERED: ROCEPHIN VIAL 1 GRAM 1 G in NS 100 ML IV 100 ML IV SCH (13:53)
--- NOTE | 2025-03-06 14:15 | RAD ---
EXAM: CHEST, 1 VIEW HISTORY: COPD, PNEUMONIA, CHF; COMPARISON: 03/04/2025 TECHNIQUE: AP r.br.br.br pleural effusion, or pneumothorax. IMPRESSION: No acute cardiopulmonary findings. THIS IS AN ELECTRONICALLY VERIFIED FINAL REPORT 03/06/2025 2:11 PM - Electronically signed by Williams Barney MD
[2025-03-06] MEDS: INVanz INJ 1 GRAM VIAL 1 G in NS 100 ML IV 100 ML IV SCH (14:44)
[2025-03-06] MEDS: COLACE CAP 100 MG PO SCH (20:33)
[2025-03-07 05:53] LABS: MEAN PLATELET VOLUME 8.6 fL (7.4-11.0); RED CELL DISTRIBUTION WIDTH 25.7 % (11.6-16.5)
[2025-03-07 06:05] LABS: PLATELET MORPHOLOGY COMMENT NORMAL (NORMAL)
[2025-03-07 06:07] LABS: COR CA(FOR HYPOALB) 10.0 mg/dL (8.5-10.1); COR NA(FOR HYPERGLY) 140.0 mmol/L (136-145); CREATININE 1.17 mg/dL (0.55-1.02); eGFR NON BLACK RACES 47.0 (>60)
[2025-03-07] MEDS: MILK OF MAGNESIA PO SCH (09:15)
[2025-03-07] MEDS: HEMOCYTE PLUS PO SCH (09:28)
[2025-03-07] MEDS: SALINE 3% 15 ML NEB TX ONE (09:28)
[2025-03-08 06:24] LABS: MEAN PLATELET VOLUME 8.6 fL (7.4-11.0); RED CELL DISTRIBUTION WIDTH 26.2 % (11.6-16.5)
[2025-03-08 06:41] LABS: COR CA(FOR HYPOALB) 9.9 mg/dL (8.5-10.1); CREATININE 1.33 mg/dL (0.55-1.02); eGFR NON BLACK RACES 40 (>60)
[2025-03-08 06:47] LABS: PLATELET MORPHOLOGY COMMENT NORMAL (NORMAL)
[2025-03-08] MEDS: OMNICEF CAP 300 MG PO NR (09:23)
[2025-03-08 11:46] VITALS: BP 158/70; PULSE 76; RESP 20; TEMP 98.4; O2SAT 97
== END 2025-03-08 15:25 | disposition hospice, home (50) ==
LOC: ER 07:45 → MED/SURG 07:45
PROVIDERS: ADMIT Internal Medicine; ATTEND Internal Medicine
DX: Z16.29 Resistance to other single specified antibiotic; E83.51 Hypocalcemia; B97.89 Other viral agents as the cause of diseases classified elsewhere; I11.0 Hypertensive heart disease with heart failure; E03.8 Other specified hypothyroidism; Z16.23 Resistance to quinolones and fluoroquinolones; R26.89 Other abnormalities of gait and mobility; I25.10 Atherosclerotic heart disease of native coronary artery without angina pectoris; I48.20 Chronic atrial fibrillation, unspecified; R60.0 Localized edema; F41.8 Other specified anxiety disorders; D72.828 Other elevated white blood cell count; Z59.868 Other specified financial insecurity; Z79.01 Long term (current) use of anticoagulants; E11.65 Type 2 diabetes mellitus with hyperglycemia; J20.8 Acute bronchitis due to other specified organisms; I50.9 Heart failure, unspecified; Z65.8 Other specified problems related to psychosocial circumstances; J44.1 Chronic obstructive pulmonary disease with (acute) exacerbation; D50.8 Other iron deficiency anemias; E83.42 Hypomagnesemia; R53.1 Weakness; J18.8 Other pneumonia, unspecified organism; M19.90 Unspecified osteoarthritis, unspecified site; B96.29 Other Escherichia coli [E. coli] as the cause of diseases classified elsewhere; Z60.8 Other problems related to social environment; R06.09 Other forms of dyspnea; R79.1 Abnormal coagulation profile; E78.5 Hyperlipidemia, unspecified; R94.31 Abnormal electrocardiogram [ECG] [EKG]; Z99.81 Dependence on supplemental oxygen; I25.2 Old myocardial infarction; R06.02 Shortness of breath; Z59.41 Food insecurity; K21.9 Gastro-esophageal reflux disease without esophagitis; N39.0 Urinary tract infection, site not specified; K92.1 Melena